=== PATIENT | female | born 1980 ===

== ENCOUNTER 2016-02-29 15:19 | Emergency (ER) | payer OTHER ==
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
--- NOTE | 2016-02-29 15:38 | ED ORDER SUMMARY ---
..... Patient: LEONIDAS KIM OrderSheet [facility] VisitID: [id number] [address] [place] [address] 35y, F Registration Date/Time: 02/29/2016 ORDER SHEET Weight: 68.0 kg (stated) Allergies: Tramadol GENERAL ORDERS: MEDICATION ORDERS: Hydrocodone-APAP PO 5/325 mg (NOW, HIGH ALERT MEDICATION) (15:37 02/29/2016 Yvonne P.A.-C) (Ack 15:39 DDean R.N.) (15:48 DDean R.N.) Keflex PO 500 mg (NOW) (15:37 02/29/2016 Yvonne P.A.-C) (Ack 15:39 DDean R.N.) (15:48 DDean R.N.) IV FLUIDS: ORDER SHEET NOTES: [Electronically signed by Yessica Nolan R.N. (16:50 02/29/2016)] [Electronically signed by Yessica Nolan R.N. (16:51 02/29/2016)] [Electronically signed by Quynh AndersenAWyatt-Sita (18:37 02/29/2016)] [Electronically locked/signed by Yessica Nolan R.N. (16:50 02/29/2016)]
--- NOTE | 2016-02-29 15:38 | ED ORDER SUMMARY ---
..... Patient: LEONIDAS KIM OrderSheet [facility] VisitID: [id number] [address] [place] [address] 35y, F Registration Date/Time: 02/29/2016 ORDER SHEET Weight: 68.0 kg (stated) Allergies: Tramadol GENERAL ORDERS: MEDICATION ORDERS: Hydrocodone-APAP PO 5/325 mg (NOW, HIGH ALERT MEDICATION) (15:37 02/29/2016 Yvonne P.A.-C) (Ack 15:39 DDean R.N.) (15:48 DDean R.N.) Keflex PO 500 mg (NOW) (15:37 02/29/2016 Yvonne P.A.-C) (Ack 15:39 DDean R.N.) (15:48 DDean R.N.) IV FLUIDS: ORDER SHEET NOTES: [Electronically signed by Yessica Nolan R.N. (16:50 02/29/2016)] [Electronically signed by Yessica Nolan R.N. (16:51 02/29/2016)] [Electronically signed by Quynh AndersenAWyatt-Sita (18:37 02/29/2016)] [Electronically locked/signed by Yessica Nolan R.N. (16:50 02/29/2016)]
--- NOTE | 2016-02-29 15:38 | ED NURSING NOTES ---
Clinical Report - Nurses [facility] [address] [place] [address] 02/29/2016 15:20 Patient: LEONIDAS KIM TRIAGE Triage time 1520. Acuity: LEVEL 4. Chief Complaint: Pt in with lump under left armpit. has had lump to armpit off and on for years, but very painful last 2 days --Never has had any cysts needing I&D. --15:38 Yessica Nolan R.N. 15:20 02/29/16. BP: 120/76. HR: 84. RR: 18. O2 saturation: 98%. Temp: 98.9 F. Pain level now: 8/10. --15:38 Yessica Nolan R.N. Weight: 68 kg stated. Height/Length: 62 inches Per Patient. BMI: 27.4. --15:36 Yessica Nolan R.N. Medications Cyclobenzaprine HCl Oral 10 mg, daily as needed. Lantus Subcutaneous 80 Units, at bedtime. MetFORMIN HCl Oral (Tablet 1000 mg) 1 tablet, 2x a day (500 mg at noon). Novalog sliding scale, before meals. Vitamins Oral 1 pill, daily. TraZODone HCl Oral 50 mg, at bedtime. --15:34 Yessica Nolan R.N. Allergies Tramadol.(nausea) (weakness) --15:34 Yessica Nolan R.N. History Arrived by private vehicle. Historian: patient. Unaccompanied. Primary physician ([facility]). PAST MEDICAL HX: Last normal menstrual period- 2 weeks. SOCIAL HX: Light tobacco smoker (cigarette)- less than 1/2 a pack per day. No alcohol use or drug use. --15:38 Yessica Nolan R.N. PROBLEMS: Lumbar Radiculopathy. Chronic Back Pain. Contact Dermatitis. Pyelonephritis. Vaginitis. Plantar Fasciitis. Bronchitis. Asthma. Vulvovaginitis. Cervical Strain. UTI - Urinary Tract Infection. Depression. Insomnia. Hypertension. Hypercholesterolemia. Diabetes Mellitus. --15:36 Yessica Nolan R.N. ADDITIONAL SURGERIES: Carpal Tunnel Surgery. . --15:36 Yessica Nolan R.N. Interventions ID band on patient. To treatment room. --15:38 Yessica Nolan R.N. PHYSICAL ASSESSMENT 15:20. Ambulatory to room. Patient gowned. GENERAL / NEURO / PSYCH: Alert. The patient does not appear to be in acute distress. Oriented X 4. RESPIRATORY: Respirations not labored. CVS: Capillary refill less than 2 seconds. SKIN: Skin is intact, warm and dry. Skin tenderness present. No area of increased warmth to the skin or drainage. --15:39 Yessica Nolan R.N. NURSING PROGRESS NOTES 15:20. Patient gowned. Head of bed elevated. Reassurance given. Patient identifiers checked. Call light placed in reach. Side rails up. Bed placed in lowest position. Patient ready for evaluation- chart flagged. --15:38 Yessica Nolan R.N. 15:43 02/29/2016 Hydrocodone-APAP (Hydrocodone-Acetaminophen) PO 5/325 mg Tablets 1 tab given. Allergies verified, confirmed 5 rights and sedative warning given to the patient. --15:48 Yessica Nolan R.N. 15:43 02/29/2016 Keflex (Cephalexin) PO Capsules 500 mg given. Allergies verified and confirmed 5 rights. --15:48 Yessica Nolan R.N. DISPOSITION / DISCHARGE 1545. Condition at departure: unchanged and stable. No learning barriers present. Discharge instructions provided and reviewed with the patient. Reviewed medication(s) (keflex, motin). Patient verbalized understanding. Written instructions provided in Surinamese. The patient was discharged home and accompanied by laborer concrete plant. She left the Emergency Department ambulatory and via private vehicle. Fence Laborer driving. --16:51 Yessica Nolan R.N. 15:45 02/29/16. BP: deferred. HR: deferred. RR: deferred. O2 saturation: deferred. Temp: deferred. Pain level now: 09/15. --16:51 Yessica Nolan R.N. Locked/Released at 02/29/2016 16:51 by Yessica Nolan R.N.
--- NOTE | 2016-02-29 15:38 | ED NURSING NOTES ---
Clinical Report - Nurses [facility] [address] [place] [address] 02/29/2016 15:20 Patient: LEONIDAS KIM TRIAGE Triage time 1520. Acuity: LEVEL 4. Chief Complaint: Pt in with lump under left armpit. has had lump to armpit off and on for years, but very painful last 2 days --Never has had any cysts needing I&D. --15:38 Yessica Nolan R.N. 15:20 02/29/16. BP: 120/76. HR: 84. RR: 18. O2 saturation: 98%. Temp: 98.9 F. Pain level now: 8/10. --15:38 Yessica Nolan R.N. Weight: 68 kg stated. Height/Length: 62 inches Per Patient. BMI: 27.4. --15:36 Yessica Nolan R.N. Medications Cyclobenzaprine HCl Oral 10 mg, daily as needed. Lantus Subcutaneous 80 Units, at bedtime. MetFORMIN HCl Oral (Tablet 1000 mg) 1 tablet, 2x a day (500 mg at noon). Novalog sliding scale, before meals. Vitamins Oral 1 pill, daily. TraZODone HCl Oral 50 mg, at bedtime. --15:34 Yessica Nolan R.N. Allergies Tramadol.(nausea) (weakness) --15:34 Yessica Nolan R.N. History Arrived by private vehicle. Historian: patient. Unaccompanied. Primary physician ([facility]). PAST MEDICAL HX: Last normal menstrual period- 2 weeks. SOCIAL HX: Light tobacco smoker (cigarette)- less than 1/2 a pack per day. No alcohol use or drug use. --15:38 Yessica Nolan R.N. PROBLEMS: Lumbar Radiculopathy. Chronic Back Pain. Contact Dermatitis. Pyelonephritis. Vaginitis. Plantar Fasciitis. Bronchitis. Asthma. Vulvovaginitis. Cervical Strain. UTI - Urinary Tract Infection. Depression. Insomnia. Hypertension. Hypercholesterolemia. Diabetes Mellitus. --15:36 Yessica Nolan R.N. ADDITIONAL SURGERIES: Carpal Tunnel Surgery. . --15:36 Yessica Nolan R.N. Interventions ID band on patient. To treatment room. --15:38 Yessica Noaln R.N. PHYSICAL ASSESSMENT 15:20. Ambulatory to room. Patient gowned. GENERAL / NEURO / PSYCH: Alert. The patient does not appear to be in acute distress. Oriented X 4. RESPIRATORY: Respirations not labored. CVS: Capillary refill less than 2 seconds. SKIN: Skin is intact, warm and dry. Skin tenderness present. No area of increased warmth to the skin or drainage. --15:39 Yessica Nolan R.N. NURSING PROGRESS NOTES 15:20. Patient gowned. Head of bed elevated. Reassurance given. Patient identifiers checked. Call light placed in reach. Side rails up. Bed placed in lowest position. Patient ready for evaluation- chart flagged. --15:38 Yessica Nolan R.N. 15:43 02/29/2016 Hydrocodone-APAP (Hydrocodone-Acetaminophen) PO 5/325 mg Tablets 1 tab given. Allergies verified, confirmed 5 rights and sedative warning given to the patient. --15:48 Yessica Nolan R.N. 15:43 02/29/2016 Keflex (Cephalexin) PO Capsules 500 mg given. Allergies verified and confirmed 5 rights. --15:48 Yessica Nolan R.N. DISPOSITION / DISCHARGE 1545. Condition at departure: unchanged and stable. No learning barriers present. Discharge instructions provided and reviewed with the patient. Reviewed medication(s) (keflex, motin). Patient verbalized understanding. Written instructions provided in Venezuelan. The patient was discharged home and accompanied by costume seamstress. She left the Emergency Department ambulatory and via private vehicle. Assistant Floor Covering Printer driving. --16:51 Yessica Nolan R.N. 15:45 02/29/16. BP: deferred. HR: deferred. RR: deferred. O2 saturation: deferred. Temp: deferred. Pain level now: 09/15. --16:51 Yessica Nolan R.N. Locked/Released at 02/29/2016 16:51 by Yessica Nolan R.N.
--- NOTE | 2016-02-29 18:37 | ED DISCHARGE INSTRUCTIONS ---
Patient: LEONIDAS KIM General Instructions [facility] VisitID: [id number] [place] [address] 35y, F Registration Date/Time: 02/29/2016 Type 2 diabetes. Hypertension. Acute left axillary lymphadenitis INSTRUCTIONS (warm packs follow up with bundle helper for annual SINTER PRESS OPERATOR exam Follow up with your own DR in 2-3 days for repeat exam). Warnings: Further evaluation is necessary. Prescription Medications: Keflex 500 mg: take 1 capsule orally every 8 hours for 10 days. No refill. Substitution is permissible. Ibuprofen 800 mg tablets: take 1 tablet orally every 8 hours for 5 days, as needed for pain. Dispense fifteen (15). No refill. Follow-up: Follow up with doctor in three days. Follow-up with: Miguelito Alvarado MD, Obstetrics/Gynecology, , [facility], [address] [place] [address] Follow up. Call for the next available appointment. ADDITIONAL INFORMATION Lymph Node Infection [Local, Antibiotic Treatment] You have a bacterial infection of the lymph node. The lymph nodes are part of the immune system and become swollen and tender when there is a nearby infection or inflammation. The lymph nodes are found under the jaw and along the side of the neck, in the armpits and in the groin. An infection or inflammation in the tissues nearby causes the lymph nodes to swell and become tender. When a bacterial infection occurs in the lymph node, it becomes very painful and the nearby skin gets red and warm. There may also be a fever. Antibiotics and hot compresses are used to treat this infection. The pain and redness will decrease over the next 7-10 days. Swelling may take several months to go away. Sometimes an ABSCESS (with pus) forms inside the lymph node. If this happens, antibiotics may not be enough to cure the infection. Minor Surgery may be needed to drain the pus. Home Care: Take all of the antibiotic medicine exactly as prescribed until it is gone. Be careful not to miss any doses, especially during the first few days. Make a hot compress by running hot water over a face cloth. Apply it to the sore area until it cools off. Repeat this for 20 minutes. Apply the hot compress three times a day for the first three days or until the pain and redness begin to improve. The heat will increase the blood flow to the area and speed the healing process. You may use acetaminophen (Tylenol) or ibuprofen (Motrin, Advil) to control pain and fever, unless another medicine was prescribed for this. Do not use ibuprofen in children under six months of age. [NOTE: If you have chronic liver or kidney disease or ever had a stomach ulcer or GI bleeding, talk with your doctor before using these medicines.] (Aspirin should never be used in anyone under 18 years of age who is ill with a fever. It may cause severe liver damage.) Follow Up with your doctor or this facility after completion of the antibiotics or as directed. Get Prompt Medical Attention if any of the following occur: Increasing redness, swelling or pain in the lymph node Pus or fluid drainage from the lymph node Difficulty breathing or swallowing Fever remains over 100.5F (38.0C) oral or 101.5F (38.3C) rectal for more than 2 days of treatment Cephalexin Monohydrate Oral tablet What is this medicine? CEPHALEXIN (sef a MAGDA in) is a cephalosporin antibiotic. It is used to treat certain kinds of bacterial infections It will not work for colds, flu, or other viral infections. How should I use this medicine? Take this medicine by mouth with a full glass of water. Follow the directions on the prescription label. This medicine can be taken with or without food. Take your medicine at regular intervals. Do not take your medicine more often than directed. Take all of your medicine as directed even if you think you are better. Do not skip doses or stop your medicine early. Talk to your retanned leather roller regarding the use of this medicine in children. While this drug may be prescribed for selected conditions, precautions do apply. What side effects may I notice from receiving this medicine? Side effects that you should report to your doctor or health healthcare social worker as soon as possible: allergic reactions like skin rash, itching or hives, swelling of the face, lips, or tongue breathing problems pain or trouble passing urine redness, blistering, peeling or loosening of the skin, including inside the mouth severe or watery diarrhea unusually weak or tired yellowing of the eyes, skin Side effects that usually do not require medical attention (report to your doctor or health healthcare social worker if they continue or are bothersome): gas or heartburn genital or anal irritation headache joint or muscle pain nausea, vomiting What may interact with this medicine? probenecid some other antibiotics What if I miss a dose? If you miss a dose, take it as soon as you can. If it is almost time for your next dose, take only that dose. Do not take double or extra doses. There should be at least 4 to 6 hours between doses. Where should I keep my medicine? Keep out of the reach of children. Store at room temperature between 59 and 86 degrees F (15 and 30 degrees C). Throw away any unused medicine after the expiration date. What should I tell my health care provider before I take this medicine? They need to know if you have any of these conditions: kidney disease stomach or intestine problems, especially colitis an unusual or allergic reaction to cephalexin, other cephalosporins, penicillins, other antibiotics, medicines, foods, dyes or preservatives or trying to get breast-feeding What should I watch for while using this medicine? Tell your doctor or health healthcare social worker if your symptoms do not begin to improve in a few days. Do not treat diarrhea with over the counter products. Contact your doctor if you have diarrhea that lasts more than 2 days or if it is severe and watery. If you have diabetes, you may get a false-positive result for sugar in your urine. Check with your doctor or health healthcare social worker. You have been given the following additional information: Cervical Adenitis, Antiobiotic Treatment Cephalexin Monohydrate Oral tablet (Electronically signed by Quynh Andersen P.A.-C 02/29/2016 18:37)
--- NOTE | 2016-02-29 18:37 | ED MED RECONCILIATION SUMMARY ---
Patient: LEONIDAS KIM Medication Reconciliation Report [facility] VisitID: [id number] [address] [place] [address] 35y, F Registration Date/Time: 02/29/2016 Weight: 68.0 kg Height/Length: 62 in. BMI: 27.4 ALLERGIES: Tramadol The patient's Home Medications are listed below: THE FOLLOWING MEDICATIONS NEED TO BE RECONCILED: Cyclobenzaprine HCl Oral 10 mg, daily Lantus Subcutaneous 80 Units, at bedtime MetFORMIN HCl Oral (1000 mg) 1 tablet, 2x a day, 500 mg at noon Novalog sliding scale, before meals Vitamins Oral 1 pill, daily TraZODone HCl Oral 50 mg, at bedtime The source(s) of the original Home Medication information: Not obtained. The following Medications were given to the patient in the Emergency Department: Hydrocodone-APAP [PO] PO 1 tab, administered: 02/29/2016 3:43:00 PM Keflex [PO] PO 500 mg, administered: 02/29/2016 3:43:00 PM The following Medications were prescribed to the patient: Keflex 500 mg: take 1 capsule orally every 8 hours for 10 days. No refill. Substitution is permissible. -- Quynh Andersen P.AWyatt-Sita Ibuprofen 800 mg tablets: take 1 tablet orally every 8 hours for 5 days, as needed for pain. Dispense fifteen (15). No refill. -- Quynh Andersen P.AWyatt-Sita
--- NOTE | 2016-02-29 18:37 | ED DISCHARGE INSTRUCTIONS ---
Patient: LEONIDAS KIM General Instructions [facility] VisitID: [id number] [place] [address] 35y, F Registration Date/Time: 02/29/2016 Type 2 diabetes. Hypertension. Acute left axillary lymphadenitis INSTRUCTIONS (warm packs follow up with experience specialist for annual MAGNETIZER exam Follow up with your own DR in 2-3 days for repeat exam). Warnings: Further evaluation is necessary. Prescription Medications: Keflex 500 mg: take 1 capsule orally every 8 hours for 10 days. No refill. Substitution is permissible. Ibuprofen 800 mg tablets: take 1 tablet orally every 8 hours for 5 days, as needed for pain. Dispense fifteen (15). No refill. Follow-up: Follow up with doctor in three days. Follow-up with: Miguelito Alvarado MD, Obstetrics/Gynecology, , [facility], [address] [place] [address] Follow up. Call for the next available appointment. ADDITIONAL INFORMATION Lymph Node Infection [Local, Antibiotic Treatment] You have a bacterial infection of the lymph node. The lymph nodes are part of the immune system and become swollen and tender when there is a nearby infection or inflammation. The lymph nodes are found under the jaw and along the side of the neck, in the armpits and in the groin. An infection or inflammation in the tissues nearby causes the lymph nodes to swell and become tender. When a bacterial infection occurs in the lymph node, it becomes very painful and the nearby skin gets red and warm. There may also be a fever. Antibiotics and hot compresses are used to treat this infection. The pain and redness will decrease over the next 7-10 days. Swelling may take several months to go away. Sometimes an ABSCESS (with pus) forms inside the lymph node. If this happens, antibiotics may not be enough to cure the infection. Minor Surgery may be needed to drain the pus. Home Care: Take all of the antibiotic medicine exactly as prescribed until it is gone. Be careful not to miss any doses, especially during the first few days. Make a hot compress by running hot water over a face cloth. Apply it to the sore area until it cools off. Repeat this for 20 minutes. Apply the hot compress three times a day for the first three days or until the pain and redness begin to improve. The heat will increase the blood flow to the area and speed the healing process. You may use acetaminophen (Tylenol) or ibuprofen (Motrin, Advil) to control pain and fever, unless another medicine was prescribed for this. Do not use ibuprofen in children under six months of age. [NOTE: If you have chronic liver or kidney disease or ever had a stomach ulcer or GI bleeding, talk with your doctor before using these medicines.] (Aspirin should never be used in anyone under 18 years of age who is ill with a fever. It may cause severe liver damage.) Follow Up with your doctor or this facility after completion of the antibiotics or as directed. Get Prompt Medical Attention if any of the following occur: Increasing redness, swelling or pain in the lymph node Pus or fluid drainage from the lymph node Difficulty breathing or swallowing Fever remains over 100.5F (38.0C) oral or 101.5F (38.3C) rectal for more than 2 days of treatment Cephalexin Monohydrate Oral tablet What is this medicine? CEPHALEXIN (sef a MAGDA in) is a cephalosporin antibiotic. It is used to treat certain kinds of bacterial infections It will not work for colds, flu, or other viral infections. How should I use this medicine? Take this medicine by mouth with a full glass of water. Follow the directions on the prescription label. This medicine can be taken with or without food. Take your medicine at regular intervals. Do not take your medicine more often than directed. Take all of your medicine as directed even if you think you are better. Do not skip doses or stop your medicine early. Talk to your property technician regarding the use of this medicine in children. While this drug may be prescribed for selected conditions, precautions do apply. What side effects may I notice from receiving this medicine? Side effects that you should report to your doctor or health childbirth and infant care teacher as soon as possible: allergic reactions like skin rash, itching or hives, swelling of the face, lips, or tongue breathing problems pain or trouble passing urine redness, blistering, peeling or loosening of the skin, including inside the mouth severe or watery diarrhea unusually weak or tired yellowing of the eyes, skin Side effects that usually do not require medical attention (report to your doctor or health childbirth and infant care teacher if they continue or are bothersome): gas or heartburn genital or anal irritation headache joint or muscle pain nausea, vomiting What may interact with this medicine? probenecid some other antibiotics What if I miss a dose? If you miss a dose, take it as soon as you can. If it is almost time for your next dose, take only that dose. Do not take double or extra doses. There should be at least 4 to 6 hours between doses. Where should I keep my medicine? Keep out of the reach of children. Store at room temperature between 59 and 86 degrees F (15 and 30 degrees C). Throw away any unused medicine after the expiration date. What should I tell my health care provider before I take this medicine? They need to know if you have any of these conditions: kidney disease stomach or intestine problems, especially colitis an unusual or allergic reaction to cephalexin, other cephalosporins, penicillins, other antibiotics, medicines, foods, dyes or preservatives or trying to get breast-feeding What should I watch for while using this medicine? Tell your doctor or health childbirth and infant care teacher if your symptoms do not begin to improve in a few days. Do not treat diarrhea with over the counter products. Contact your doctor if you have diarrhea that lasts more than 2 days or if it is severe and watery. If you have diabetes, you may get a false-positive result for sugar in your urine. Check with your doctor or health childbirth and infant care teacher. You have been given the following additional information: Cervical Adenitis, Antiobiotic Treatment Cephalexin Monohydrate Oral tablet (Electronically signed by Quynh Andersen P.A.-C 02/29/2016 18:37)
--- NOTE | 2016-02-29 18:37 | ED MAR SUMMARY ---
..... Medication Administration Record [facility] [address] [place] [address] Patient: LEONIDAS KIM Visit ID: [id number] 35y, F Weight: 68.0 kg Height/Length: 62 in BMI: 27.4 ALLERGIES: Tramadol Given 15:02/29/2016 Yessica Nolan RWyattN. Medication Administered: HYDROCODONE-APAP [PO] (HYDROCODONE-ACETAMINOPHEN), Dose: 1 tab 5/325 mg Tablets PO. Medication Ordered: Hydrocodone-APAP PO 5/325 mg (NOW, HIGH ALERT MEDICATION). Given 15:02/29/2016 Yessica Nolan, RWyattN. Medication Administered: KEFLEX [PO] (CEPHALEXIN), Dose: 500 mg Capsules PO. Medication Ordered: Keflex PO 500 mg (NOW).
--- NOTE | 2016-02-29 18:37 | ED MED RECONCILIATION SUMMARY ---
Patient: LEONIDAS KIM Medication Reconciliation Report [facility] VisitID: [id number] [address] [place] [address] 35y, F Registration Date/Time: 02/29/2016 Weight: 68.0 kg Height/Length: 62 in. BMI: 27.4 ALLERGIES: Tramadol The patient's Home Medications are listed below: THE FOLLOWING MEDICATIONS NEED TO BE RECONCILED: Cyclobenzaprine HCl Oral 10 mg, daily Lantus Subcutaneous 80 Units, at bedtime MetFORMIN HCl Oral (1000 mg) 1 tablet, 2x a day, 500 mg at noon Novalog sliding scale, before meals Vitamins Oral 1 pill, daily TraZODone HCl Oral 50 mg, at bedtime The source(s) of the original Home Medication information: Not obtained. The following Medications were given to the patient in the Emergency Department: Hydrocodone-APAP [PO] PO 1 tab, administered: 02/29/2016 3:43:00 PM Keflex [PO] PO 500 mg, administered: 02/29/2016 3:43:00 PM The following Medications were prescribed to the patient: Keflex 500 mg: take 1 capsule orally every 8 hours for 10 days. No refill. Substitution is permissible. -- Quynh Andersen P.AWyatt-Sita Ibuprofen 800 mg tablets: take 1 tablet orally every 8 hours for 5 days, as needed for pain. Dispense fifteen (15). No refill. -- Quynh Andersen P.AWyatt-Sita
--- NOTE | 2016-02-29 18:37 | ED MAR SUMMARY ---
..... Medication Administration Record [facility] [address] [place] [address] Patient: LEONIDAS KIM Visit ID: [id number] 35y, F Weight: 68.0 kg Height/Length: 62 in BMI: 27.4 ALLERGIES: Tramadol Given 15:02/29/2016 Yessica Nolan RWyattN. Medication Administered: HYDROCODONE-APAP [PO] (HYDROCODONE-ACETAMINOPHEN), Dose: 1 tab 5/325 mg Tablets PO. Medication Ordered: Hydrocodone-APAP PO 5/325 mg (NOW, HIGH ALERT MEDICATION). Given 15:02/29/2016 Yessica Nolan, RWyattN. Medication Administered: KEFLEX [PO] (CEPHALEXIN), Dose: 500 mg Capsules PO. Medication Ordered: Keflex PO 500 mg (NOW).
== END 2016-02-29 15:48 | disposition home or self-care (01) ==
LOC: ED SRH 15:19
DX: L04.2 Acute lymphadenitis of upper limb (principal); E11.9 Type 2 diabetes mellitus without complications; I10 Essential (primary) hypertension; Z79.4 Long term (current) use of insulin; Z88.5 Allergy status to narcotic agent; F17.200 Nicotine dependence, unspecified, uncomplicated

== ENCOUNTER 2016-03-31 13:58 | Outpatient (CLI) | payer OTHER ==
--- NOTE | 2016-03-31 15:50 | DIAGNOSTIC IMAGING REPORT ---
PROCEDURE: MG BILATERAL DIAGNOSTIC W/CAD INDICATION: LEFT BREAST PAIN; LUMP TECHNIQUE: CC and MLO digital views of each breast with true-lateral digital view of the left breast. In addition, spot compression CC and MLO views were obtained of the left upper outer quadrant. Finally, high-resolution left breast ultrasound was performed (18 mHz). COMPARISON: Baseline FINDINGS: MAMMOGRAM: Computer-aided detection applied. Moderately dense pattern with scattered microcalcifications. No evidence of parenchymal abnormality corresponding to the symptomatic area in the left upper outer quadrant. BREAST ULTRASOUND: Normal breast parenchyma. No evidence of a mass pathological acoustic shadowing. IMPRESSION: 1. Negative bilateral mammogram and left breast ultrasound. RESULT CODE: 1- Negative. A. A negative report should not delay biopsy if a dominant or clinically suspicious mass is present. 10-15% of cancers are not identified by x-ray. B. A negative report may reinforce clinical impression. C. Adenosis and dense breasts may obscure an underlying neoplasm. D. False positive reports average 6-10%. E.. A yearly screening mammogram is recommended. A reminder letter will be scheduled.
== END 2016-03-31 23:00 | disposition home or self-care (01) ==
LOC: MAM SRH 13:58
DX: N63 Unspecified lump in breast (principal)

== ENCOUNTER 2016-04-06 21:10 | Emergency (ER) | payer OTHER ==
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
--- NOTE | 2016-04-06 22:42 | ED ORDER SUMMARY ---
..... Patient: LEONIDAS KIM OrderSheet [facility] VisitID: [id number] [place] [address] 35y, F Registration Date/Time: 04/06/2016 ORDER SHEET Weight: 69.8 kg (stated) Allergies: Tramadol GENERAL ORDERS: CBC w Diff Urgent (21:04/06/2016 Sav PEÑA) (Ack 21:26 Michelle AREVALO TechPeyton) (22:10 HSoule) CMP Urgent (:04/06/2016 Sav PEÑA) (Ack 21:26 Michelle AREVALO Tech1) (22:10 HSoule) UA-Culture if indicated Urgent (:04/06/2016 Sav PEÑA) (Ack 21:26 Michelle Delacruz) (22:10 HSoule) Amylase Urgent (:04/06/2016 Sav PEÑA) (Ack 21:26 Michelle Delacruz) (22:10 HSoule) Lipase Urgent (:04/06/2016 Sav PEÑA) (Ack 21:26 Michelle AREVALO TechPeyton) (22:10 HSoule) Urine Urgent (:04/06/2016 Sav PEÑA) (Ack 21:26 Michelle AREVALO Tech1) (22:10 HSoule) Lumbar Spine 2 or 3V Urgent (21:56 04/06/2016 Sav PEÑA) (Ack 21:57 Michelle ER Tech1) (22:38 MCampbell) MEDICATION ORDERS: IV FLUIDS: IV NS : initial bolus 500 mL (1000 mL/hr), then 125 mL/hr for 4h (NOW); Urgent (:04/06/2016 Sav PEÑA) (Ack 21:38 HSoule) (21:53 HSoule) ORDER SHEET NOTES: [Electronically signed by Brianda Branch (00:02 04/07/2016)] [Electronically signed by Man Trinidad MD (02:15 04/07/2016)] [Electronically locked/signed by Brianda Branch (00:02 04/07/2016)]
--- NOTE | 2016-04-06 22:42 | ED ORDER SUMMARY ---
..... Patient: LEONIDAS KIM OrderSheet [facility] VisitID: [id number] [place] [address] 35y, F Registration Date/Time: 04/06/2016 ORDER SHEET Weight: 69.8 kg (stated) Allergies: Tramadol GENERAL ORDERS: CBC w Diff Urgent (21:04/06/2016 Sav PEÑA) (Ack 21:26 Michelle AREVALO TechPeyton) (22:10 HSoule) CMP Urgent (:04/06/2016 Sav PEÑA) (Ack 21:26 Michelle AREVALO Tech1) (22:10 HSoule) UA-Culture if indicated Urgent (:04/06/2016 Sav PEÑA) (Ack 21:26 Michelle Delacruz) (22:10 HSoule) Amylase Urgent (:04/06/2016 Sav PEÑA) (Ack 21:26 Michelle Delacruz) (22:10 HSoule) Lipase Urgent (:04/06/2016 Sav PEÑA) (Ack 21:26 Michelle AREVALO TechPeyton) (22:10 HSoule) Urine Urgent (:04/06/2016 Sav PEÑA) (Ack 21:26 Michelle AREVALO Tech1) (22:10 HSoule) Lumbar Spine 2 or 3V Urgent (21:56 04/06/2016 Sav PEÑA) (Ack 21:57 Michelle ER Tech1) (22:38 MCampbell) MEDICATION ORDERS: IV FLUIDS: IV NS : initial bolus 500 mL (1000 mL/hr), then 125 mL/hr for 4h (NOW); Urgent (:04/06/2016 Sav PEÑA) (Ack 21:38 HSoule) (21:53 HSoule) ORDER SHEET NOTES: [Electronically signed by Brianda Branch (00:02 04/07/2016)] [Electronically signed by Man Trinidad MD (02:15 04/07/2016)] [Electronically locked/signed by Brianda Branch (00:02 04/07/2016)]
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
--- NOTE | 2016-04-06 22:45 | DIAGNOSTIC IMAGING REPORT ---
PROCEDURE: XR LUMBAR SPINE 2 OR 3 VIEWS INDICATION: LOWER BACK PAIN TECHNIQUE: Three views of the lumbar spine COMPARISON: 01/05/2016 FINDINGS: Five lumbar-type vertebral bodies are present. Normal vertebral body height without fracture. Normal AP alignment with loss of lordosis likely reflective of muscle spasm. Disc spacing is normal. Trace degenerative endplate spurring at L5. The visible osseous pelvis and bowel gas pattern are normal. IMPRESSION: 1. Intact lumbar spine. 2. Chronic loss of lordosis may be postural or chronic muscle spasm.
--- NOTE | 2016-04-07 02:16 | ED MAR SUMMARY ---
..... Medication Administration Record [facility] [address] [place] [address] Patient: LEONIDAS KIM Visit ID: [id number] 35y, F Weight: 69.8 kg Height/Length: 62 in BMI: 28.2 ALLERGIES: Tramadol Start 21:53 04/06/2016 Brianda Branch,, Stop 22:46 04/06/2016 Brianda Branch, Medication Administered: IV NS (SALINE), Dose: IV Fluids over 30 minute(s), Rate: 500 mL/hr, Dispensed: 1000 mL bag, Site: #1 left AC. Medication Ordered: IV NS : initial bolus 500 mL (1000 mL/hr), then 125 mL/hr for 4h (NOW); Urgent.
--- NOTE | 2016-04-07 02:16 | ED MAR SUMMARY ---
..... Medication Administration Record [facility] [address] [place] [address] Patient: LEONIDAS KIM Visit ID: [id number] 35y, F Weight: 69.8 kg Height/Length: 62 in BMI: 28.2 ALLERGIES: Tramadol Start 21:53 04/06/2016 Brianda Branch,, Stop 22:46 04/06/2016 Brianda Branch, Medication Administered: IV NS (SALINE), Dose: IV Fluids over 30 minute(s), Rate: 500 mL/hr, Dispensed: 1000 mL bag, Site: #1 left AC. Medication Ordered: IV NS : initial bolus 500 mL (1000 mL/hr), then 125 mL/hr for 4h (NOW); Urgent.
--- NOTE | 2016-04-07 02:16 | ED MED RECONCILIATION SUMMARY ---
Patient: LEONIDAS KIM Medication Reconciliation Report [facility] VisitID: [id number] [address] [place] [address] 35y, F Registration Date/Time: 04/06/2016 Weight: 69.8 kg Height/Length: 62 in. BMI: 28.2 ALLERGIES: Tramadol The patient's Home Medications are listed below: THE FOLLOWING MEDICATIONS NEED TO BE RECONCILED: Cyclobenzaprine HCl Oral 10 mg, daily Lantus Subcutaneous 80 Units, at bedtime MetFORMIN HCl Oral (1000 mg) 1 tablet, 2x a day, 500 mg at noon Novalog sliding scale, before meals TraZODone HCl Oral 50 mg, at bedtime The source(s) of the original Home Medication information: patient The following Medications were given to the patient in the Emergency Department: IV NS IV Fluids bolus 0, then 500 mL/hr, administered: 04/06/2016 9:53:00 PM The following Medications were prescribed to the patient: Ibuprofen 600mg tablets: take 1 tablet orally every 8 hours as needed for pain. Dispense thirty (30). No refills. -- Man Trinidad MD Flexeril 10 mg: take 1 orally every 8 hours as needed for muscle spasm or pain. Dispense fifteen (15). No refills. Substitution is permissible. -- Man Trinidad MD
--- NOTE | 2016-04-07 02:16 | ED MED RECONCILIATION SUMMARY ---
Patient: LEONIDAS KIM Medication Reconciliation Report Located [facility] VisitID: [id number] [address] [place] [address] 35y, F Registration Date/Time: 04/06/2016 Weight: 69.8 kg Height/Length: 62 in. BMI: 28.2 ALLERGIES: Tramadol The patient's Home Medications are listed below: THE FOLLOWING MEDICATIONS NEED TO BE RECONCILED: Cyclobenzaprine HCl Oral 10 mg, daily Lantus Subcutaneous 80 Units, at bedtime MetFORMIN HCl Oral (1000 mg) 1 tablet, 2x a day, 500 mg at noon Novalog sliding scale, before meals TraZODone HCl Oral 50 mg, at bedtime The source(s) of the original Home Medication information: patient The following Medications were given to the patient in the Emergency Department: IV NS IV Fluids bolus 0, then 500 mL/hr, administered: 04/06/2016 9:53:00 PM The following Medications were prescribed to the patient: Ibuprofen 600mg tablets: take 1 tablet orally every 8 hours as needed for pain. Dispense thirty (30). No refills. -- Man Trinidad MD Flexeril 10 mg: take 1 orally every 8 hours as needed for muscle spasm or pain. Dispense fifteen (15). No refills. Substitution is permissible. -- Man Trinidad MD
--- NOTE | 2016-04-07 02:16 | ED DISCHARGE INSTRUCTIONS ---
Patient: LEONIDAS KIM General [facility] VisitID: [id number] [address] [place] [address] 35y, F Registration Date/Time: 04/06/2016 Dysuria Acute left sided sciatica with low back pain. INSTRUCTIONS Apply ice for 20 minutes four times a day until better. Don't apply ice directly to skin and don't use while asleep. No driving or operating machinery while taking medication. No lifting greater than 5 lbs or no bending or stooping. (if your symptoms persist, talk with your doctor about whether you would benefit from an MRI as discussed.). Warnings: GENERAL WARNINGS: Return or contact your physician immediately if your condition worsens or changes unexpectedly, if not improving as expected, or if other problems arise. Prescription Medications: Ibuprofen 600mg tablets: take 1 tablet orally every 8 hours as needed for pain. Dispense thirty (30). No refills. Flexeril 10 mg: take 1 orally every 8 hours as needed for muscle spasm or pain. Dispense fifteen (15). No refills. Substitution is permissible. Understanding of the discharge instructions verbalized by patient. Follow-up with: [facility], , , [address], , [place], [address] Follow up tomorrow. Call for an appointment. ADDITIONAL INFORMATION Sciatica Sciatica ("Lumbar Radiculopathy") causes a pain that spreads from the lower back down into the buttock, hip and leg. Sometimes leg pain can occur without any back pain. Sciatica is due to irritation or pressure on a spinal nerve as it comes out of the spinal canal. This is most often due to a bulge or rupture of a nearby spinal disk (the cartilage cushion between each spinal bone), which presses on a nearby nerve. Other causes include spinal stenosis (narrowing of the spinal canal) and spasm of the pyriform muscle (a muscle in the buttocks that the sciatic nerve passes through). Sciatica may begin after a sudden twisting/bending force (such as in a car accident), or sometimes after a simple awkward movement. In either case, muscle spasm is commonly present and contributes to the pain. The diagnosis of sciatica is made from the symptoms and physical exam. Unless you had a physical injury (such as a car accident or fall), X-rays are usually not ordered for the initial evaluation of sciatica because the nerves and disks cannot be seen on an x-ray. If signs of a compressed nerve are present (for example, loss of tendon reflex or strength in the leg), an MRI (magnetic resonance imaging) scan will need to be scheduled as an outpatient. Most sciatica (80-90%) gets better with medicine, exercise, physical therapy. If symptoms continue after at least three months of medical treatment, surgery may be considered. Home Care: You may need to stay in bed the first few days. But, as soon as possible, begin sitting or walking to avoid problems with prolonged bed rest. When in bed, try to find a position of comfort. A firm mattress is best. Try lying flat on your back with pillows under your knees. You can also try lying on your side with your knees bent up towards your chest and a pillow between your knees. Avoid prolonged sitting. This puts more stress on the lower back than standing or walking. Some persons find relief with heat (hot shower, hot bath or heating pad) and massage, while others prefer cold packs (crushed or cubed ice in a plastic bag, wrapped in a towel). Try both and use the method that feels best for 20 minutes several times a day. You may use acetaminophen (Tylenol) or ibuprofen (Motrin, Advil) to control pain, unless another pain medicine was prescribed. [ NOTE: If you have chronic liver or kidney disease or ever had a stomach ulcer or GI bleeding, talk with your doctor before using these medicines.] Be aware of safe lifting methods and do not lift anything over 15 pounds until all the pain is gone. Follow Up with your doctor or this facility if your symptoms do not start to improve after one week. Physical therapy or further testing may be needed. [NOTE: If X-rays were taken, they will be reviewed by a radiologist. You will be notified of any new findings that may affect your care.] Get Prompt Medical Attention if any of the following occur: Pain becomes worse, not controlled by the prescribed medicine Weakness or numbness in one or both legs Numbness in the groin, genital area Loss of bowel or bladder control Dysuria [Adult, Uncertain Cause] The urethra is the channel that allows urine to pass out of the body. In a woman, the urethra is the opening above the vagina. In men, the urethra is the opening on the tip of the penis. Dysuria is the feeling of pain or burning in the urethra when passing urine. Dysuria can be caused by anything that irritates or inflames the urethra. This can be caused by an infection or chemical irritation. The cause for your dysuria is not certain. The most common cause of dysuria in adults is a bladder infection. This is diagnosed with a urine test. It requires treatment with an antibiotic. Soaps, lotions, colognes, feminine hygiene products, contraceptive jellies, creams and foams can cause chemical irritation and dysuria. It will go away in 1-3 days after last exposure. Sexually Transmitted Disease (STD) from Chlamydia or Gonorrhea can cause dysuria. If your doctor suspects this, a culture specimen may be taken. It will take about three days to get the results. Antibiotic treatment may be started before the culture test returns. In post-menopausal women, dysuria can be a result of dryness in the lining of the urethra. This can be treated with hormones. Dysuria becomes "chronic" when it lasts for weeks or months. A referral to a specialist (urologist) may be needed to diagnose and treat chronic dysuria. Home Care: Avoid any chemical agents that you suspect may be causing your symptoms. If you were given a prescription medicine, take as directed. If a culture was taken, avoid sexual activity until you have been told that it is negative (no infection). Then, follow your doctor's advice to treat your condition. If a culture was done and it is positive: Both you and your sexual partner need to be treated, even if your partner has no symptoms. Contact your doctor or go to an urgent care clinic or the Public Health Department to be examined and treated. Avoid sexual activity until both you and your partner have completed all antibiotic medicine and told that you are no longer contagious. Learn about safe sex practices and use these in the future. The safest sex is with a partner who has tested negative and only has sex with you. Condoms offer protection from spreading some sexually transmitted diseases including Gonorrhea, Chlamydia and HIV, but are not a guarantee. Follow Up with your doctor as advised by our staff. If a culture was taken call in three days for the result, or as directed. If diagnosed with an STD, follow up with your doctor or the Public Health Department for complete STD screening, including HIV testing. For more information, contact the National STD Hotline: . Get Prompt Medical Attention if any of the following occur: No improvement after three days of treatment Fever of 100.4F (38C) or higher, or as directed by your healthcare provider Increasing back or abdominal pain Inability to urinate due to pain A new discharge from the urethra, vagina or penis Painful sores on the penis Rash or joint pain Enlarged painful lymph nodes (lumps) in the groin Testicle pain or swelling of the scrotum Ibuprofen Oral tablet What is this medicine? IBUPROFEN (eye BYOO proe fen) is a non-steroidal anti-inflammatory drug (NSAID). It is used for dental pain, fever, headaches or migraines, osteoarthritis, rheumatoid arthritis, or painful monthly periods. It can also relieve minor aches and pains caused by a cold, flu, or sore throat. How should I use this medicine? Take this medicine by mouth with a glass of water. Follow the directions on the prescription label. Take this medicine with food if your stomach gets upset. Try to not lie down for at least 10 minutes after you take the medicine. Take your medicine at regular intervals. Do not take your medicine more often than directed. A special MedGuide will be given to you by the pharmacist with each prescription and refill. Be sure to read this information carefully each time. Talk to your resident athletic trainer regarding the use of this medicine in children. Special care may be needed. What side effects may I notice from receiving this medicine? Side effects that you should report to your doctor or health hemodialysis patient care specialist as soon as possible: allergic reactions like skin rash, itching or hives, swelling of the face, lips, or tongue black or bloody stools, blood in the urine or in vomit breathing problems changes in vision chest pain general ill feeling or flu-like symptoms nausea or vomiting redness, blistering, peeling or loosening of the skin, including inside the mouth slurred speech or weakness on one side of the body stomach pain unexplained weight gain or swelling unusually weak or tired yellowing of eyes or skin Side effects that usually do not require medical attention (report to your doctor or health hemodialysis patient care specialist if they continue or are bothersome): constipation or diarrhea dizziness gas or heartburn stomach upset What may interact with this medicine? Do not take this medicine with any of the following medications: cidofovir ketorolac methotrexate pemetrexed This medicine may also interact with the following medications: alcohol aspirin diuretics lithium other drugs for inflammation like prednisone warfarin What if I miss a dose? If you miss a dose, take it as soon as you can. If it is almost time for your next dose, take only that dose. Do not take double or extra doses. Where should I keep my medicine? Keep out of the reach of children. Store at room temperature between 15 and 30 degrees C (59 and 86 degrees F). Keep container tightly closed. Throw away any unused medicine after the expiration date. What should I tell my health care provider before I take this medicine? They need to know if you have any of these conditions: asthma cigarette smoker drink more than 3 alcohol containing drinks a day heart disease or circulation problems such as heart failure or leg edema (fluid retention) high blood pressure kidney disease liver disease stomach bleeding or ulcers an unusual or allergic reaction to ibuprofen, aspirin, other NSAIDS, other medicines, foods, dyes, or preservatives or trying to get breast-feeding What should I watch for while using this medicine? Tell your doctor or healthcare professional if your symptoms do not start to get better or if they get worse. This medicine does not prevent heart attack or stroke. In fact, this medicine may increase the chance of a heart attack or stroke. The chance may increase with longer use of this medicine and in people who have heart disease. If you take aspirin to prevent heart attack or stroke, talk with your doctor or health hemodialysis patient care specialist. Do not take other medicines that contain aspirin, ibuprofen, or naproxen with this medicine. Side effects such as stomach upset, nausea, or ulcers may be more likely to occur. Many medicines available without a prescription should not be taken with this medicine. This medicine can cause ulcers and bleeding in the stomach and intestines at any time during treatment. Ulcers and bleeding can happen without warning symptoms and can cause . To reduce your risk, do not smoke cigarettes or drink alcohol while you are taking this medicine. You may get drowsy or dizzy. Do not drive, use machinery, or do anything that needs mental alertness until you know how this medicine affects you. Do not stand or sit up quickly, especially if you are an older patient. This reduces the risk of dizzy or fainting spells. This medicine can cause you to bleed more easily. Try to avoid damage to your teeth and gums when you brush or floss your teeth. Cyclobenzaprine Hydrochloride Oral tablet What is this medicine? CYCLOBENZAPRINE (glo mcknight) is a muscle relaxer. It is used to treat muscle pain, spasms, and stiffness. How should I use this medicine? Take this medicine by mouth with a glass of water. Follow the directions on the prescription label. If this medicine upsets your stomach, take it with food or milk. Take your medicine at regular intervals. Do not take it more often than directed. Talk to your resident athletic trainer regarding the use of this medicine in children. Special care may be needed. What side effects may I notice from receiving this medicine? Side effects that you should report to your doctor or health hemodialysis patient care specialist as soon as possible: allergic reactions like skin rash, itching or hives, swelling of the face, lips, or tongue chest pain fast heartbeat hallucinations seizures vomiting Side effects that usually do not require medical attention (report to your doctor or health hemodialysis patient care specialist if they continue or are bothersome): headache What may interact with this medicine? Do not take this medicine with any of the following medications: cisapride droperidol flecainide grepafloxacin halofantrine levomethadyl MAOIs like Carbex, Eldepryl, Marplan, Nardil, and Parnate nilotinib pimozide probucol sertindole This medicine may also interact with the following medications: abarelix alcohol contrast dyes dolasetron guanethidine medicines for cancer medicines for depression, anxiety, or psychotic disturbances medicines to treat an irregular heartbeat medicines used for sleep or numbness during surgery or procedure methadone octreotide ondansetron palonosetron phenothiazines like chlorpromazine, mesoridazine, prochlorperazine, thioridazine some medicines for infection like alfuzosin, chloroquine, clarithromycin, levofloxacin, mefloquine, pentamidine, troleandomycin tramadol vardenafil What if I miss a dose? If you miss a dose, take it as soon as you can. If it is almost time for your next dose, take only that dose. Do not take double or extra doses. Where should I keep my medicine? Keep out of the reach of children. Store at room temperature between 15 and 30 degrees C (59 and 86 degrees F). Keep container tightly closed. Throw away any unused medicine after the expiration date. What should I tell my health care provider before I take this medicine? They need to know if you have any of these conditions: heart disease, irregular heartbeat, or previous heart attack liver disease thyroid problem an unusual or allergic reaction to cyclobenzaprine, tricyclic antidepressants, lactose, other medicines, foods, dyes, or preservatives or trying to get breast-feeding What should I watch for while using this medicine? Check with your doctor or health hemodialysis patient care specialist if your condition does not improve within 1 to 3 weeks. You may get drowsy or dizzy when you first start taking the medicine or change doses. Do not drive, use machinery, or do anything that may be dangerous until you know how the medicine affects you. Stand or sit up slowly. Your mouth may get dry. Drinking water, chewing sugarless gum, or sucking on hard candy may help. You have been given the following additional information: Back Pain W/ Sciatica Dysuria, Uncertain Cause (Adult) Ibuprofen Oral tablet Cyclobenzaprine Hydrochloride Oral tablet No driving or operating machinery while taking medication. No lifting greater than 5 lbs or no bending or stooping. (Electronically signed by Man Trinidad MD 04/07/2016 2:15)
== END 2016-04-06 23:00 | disposition home or self-care (01) ==
LOC: ED SRH 21:10
DX: M54.42 Lumbago with sciatica, left side (principal); R30.0 Dysuria; E11.9 Type 2 diabetes mellitus without complications; I10 Essential (primary) hypertension; F17.210 Nicotine dependence, cigarettes, uncomplicated; Z79.84 Long term (current) use of oral hypoglycemic drugs; Z79.4 Long term (current) use of insulin; Z88.5 Allergy status to narcotic agent
CPT/HCPCS: 90004; 90100; 92235; 92530; 93070; 95059

== ENCOUNTER 2016-05-01 08:54 | Emergency (ER) | payer OTHER ==
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
--- NOTE | 2016-05-01 11:08 | ED ORDER SUMMARY ---
..... Patient: LEONIDAS KIM OrderSheet [facility] VisitID: [id number] [address] [place] [address] 35y, F Registration Date/Time: 05/01/2016 ORDER SHEET Weight: 69.8 kg (stated) Allergies: Tramadol GENERAL ORDERS: CBC w Diff Urgent (09:05/01/2016 Sav PEÑA) (Ack 9:26 Kg) (9:41 MWinterer R.N.) CMP Urgent (:05/01/2016 Sav PEÑA) (Ack 9:26 Kg) (9:41 MWinterer R.N.) UA-Culture if indicated Urgent (:05/01/2016 Sav PEÑA) (Ack 9:26 Kg) (9:30 KWilliams R.N.) Amylase Urgent (:05/01/2016 Sav PEÑA) (Ack 9:26 Kg) (9:41 MWinterer R.N.) Lipase Urgent (:05/01/2016 Sav PEÑA) (Ack 9:26 Kg) (9:41 MWinterer R.N.) Urine Urgent (:05/01/2016 Sav PEÑA) (Ack 9:26 Kg) (9:30 KWilliams R.N.) MEDICATION ORDERS: IV FLUIDS: IV NS : initial bolus 1000 mL (1000 mL/hr), then 150 mL/hr for 4h (NOW); Urgent (09:05/01/2016 Sav PEÑA) (Ack 9:28 MWinterer R.N.) (9:42 MWinterer R.N.) Zofran IV 4 mg (NOW) (09:05/01/2016 Sav PEÑA) (Ack 9:28 MWinterer R.N.) (9:42 MWinterer R.N.) Toradol IV 30 mg (NOW) (10:21 05/01/2016 Sav PEÑA) (Ack 10:23 MWinterer R.N.) (10:26 MWinterer R.N.) ORDER SHEET NOTES: [Electronically signed by Gini Hernandez R.N. (11:35 05/01/2016)] [Electronically signed by Man Trinidad MD (12:48 05/01/2016)] [Electronically locked/signed by Gini Hernandez R.N. (11:35 05/01/2016)]
--- NOTE | 2016-05-01 11:08 | ED ORDER SUMMARY ---
..... Patient: LEONIDAS KIM OrderSheet [facility] VisitID: [id number] [address] [place] [address] 35y, F Registration Date/Time: 05/01/2016 ORDER SHEET Weight: 69.8 kg (stated) Allergies: Tramadol GENERAL ORDERS: CBC w Diff Urgent (09:05/01/2016 Sav PEÑA) (Ack 9:26 Kg) (9:41 MWinterer R.N.) CMP Urgent (:05/01/2016 Sav PEÑA) (Ack 9:26 Kg) (9:41 MWinterer R.N.) UA-Culture if indicated Urgent (:05/01/2016 Sav PEÑA) (Ack 9:26 Kg) (9:30 KWilliams R.N.) Amylase Urgent (:05/01/2016 Sav PEÑA) (Ack 9:26 Kg) (9:41 MWinterer R.N.) Lipase Urgent (:05/01/2016 Sav PEÑA) (Ack 9:26 Kg) (9:41 MWinterer R.N.) Urine Urgent (:05/01/2016 Sav PEÑA) (Ack 9:26 Kg) (9:30 KWilliams R.N.) MEDICATION ORDERS: IV FLUIDS: IV NS : initial bolus 1000 mL (1000 mL/hr), then 150 mL/hr for 4h (NOW); Urgent (09:05/01/2016 Sav PEÑA) (Ack 9:28 MWinterer R.N.) (9:42 MWinterer R.N.) Zofran IV 4 mg (NOW) (09:05/01/2016 Sav PEÑA) (Ack 9:28 MWinterer R.N.) (9:42 MWinterer R.N.) Toradol IV 30 mg (NOW) (10:21 05/01/2016 aSv PEÑA) (Ack 10:23 MWinterer R.N.) (10:26 MWinterer R.N.) ORDER SHEET NOTES: [Electronically signed by Gini Hernandez R.N. (11:35 05/01/2016)] [Electronically signed by Man Trinidad MD (12:48 05/01/2016)] [Electronically locked/signed by Gini Hernandez R.N. (11:35 05/01/2016)]
--- NOTE | 2016-05-01 11:08 | ED NURSING NOTES ---
Clinical Report - Nurses [facility] [address] [place] [address] 05/01/2016 8:55 Patient: LEONIDAS KIM TRIAGE Acuity: LEVEL 3. Chief Complaint: ABDOMINAL PAIN, NAUSEA and DIARRHEA and (headache). Alert. No acute distress. --09:21 Gini Hernandez R.N. 09:13 05/01/16. BP: 133/91. HR: 88. RR: 16. O2 saturation: 99% on room air. Temp: 98.1 F (oral). Pain level now: 11/15. --09: Gini Hernandez R.N. Weight: 69.8 kg stated. Height/Length: 61 inches Per Patient. BMI: 29.1. --09:20 Gini Hernandez R.N. Medications Cyclobenzaprine HCl Oral 10 mg, daily as needed. Lantus Subcutaneous 80 Units, at bedtime. MetFORMIN HCl Oral (Tablet 1000 mg) 1 tablet, 2x a day (500 mg at noon). Novalog sliding scale, before meals. TraZODone HCl Oral 50 mg, at bedtime. --09:18 Gini Hernandez R.N. Medication/allergy information source: the patient. --09: Gini Hernandez R.N. Allergies Tramadol.(nausea) (weakness) --:18 Gini Hernandez R.N. History Arrived by private vehicle. Historian: patient. Unaccompanied. Primary physician ([facility]). This started last night. 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 PAST MEDICAL HX: Last normal menstrual period- today. SOCIAL HX: Current some days light tobacco smoker- less than 1/2 a pack per day. Occasional alcohol use. No drug use. FALL RISK ASSESSMENT: Fall risk assessment completed. No fall risk identified. NUTRITIONAL RISK ASSESSMENT: The nutritional risk assessment revealed no deficiencies. FUNCTIONAL ASSESSMENT: Functional assessment: no impairments noted. LEARNING NEEDS ASSESSMENT: The learning needs assessment revealed no barriers. SKIN INTEGRITY ASSESSMENT: Skin integrity risk assessment completed. No skin integrity risk identified. --09:21 Gini Hernandez R.N. PROBLEMS: Dysuria. Sciatica. Lymphadenitis. Back Pain. Lumbar Radiculopathy. Chronic Back Pain. Contact Dermatitis. Pyelonephritis. Vaginitis. Plantar Fasciitis. Bronchitis. Asthma. Discomfort of . Vulvovaginitis. . Abdominal Pain. Depression. Hypercholesterolemia. Hypertension. Diabetes Mellitus. --09:18 Gini Hernandez R.N. ADDITIONAL SURGERIES: Carpal Tunnel Surgery. . --09:19 Gini Hernandez R.N. Assessment GENERAL / NEURO / PSYCH: Alert. Oriented X 4. Appears in no acute distress. [place] Coma Scale: 15- eyes open spontaneously (4); best verbal response- oriented x 4 (5); best motor response- obeys commands (6). Patient appears calm and cooperative. RESPIRATORY: Respirations not labored. CVS: Capillary refill less than 2 seconds. GI / : Abdomen soft. SKIN: Mucous membranes are pink. Skin is warm and dry. --09: Gini Hernandez R.N. Interventions ID band on patient. To treatment room. Ambulatory. --09: Gini Hernandez R.N. PHYSICAL ASSESSMENT 09:05/01/16. Ambulatory to room. Patient gowned. GENERAL / NEURO / PSYCH: Alert. Oriented X 4. Appears in no acute distress. HEENT: Mucous membranes are pink. RESPIRATORY: Respirations not labored. CVS: Capillary refill less than 2 seconds. GI / : Abdomen soft and nontender. SKIN: Skin is warm and dry. --:25 Gini Hernandez R.N. NURSING PROGRESS NOTES 09:05/01/16. Patient gowned. Two patient identifiers checked. Call light placed in reach. Side rails up x 1. Bed placed in lowest position. Brakes of bed on. Patient ready for evaluation- ED physician notified. --: Gini Hernandez R.N. 09:22 05/01/16. Point of care testing: performed by nurse. Glucose: 198. Result shown to the ED physician. --: Gini Hernandez R.N. 09:05/01/16. Patient ID band checked for patient name and birthdate: patient confirmed. Instructions provided to collect clean catch urine and patient verbalized understanding. Clean catch urine collected with return of red-colored urine, blood clots noted; sample sent to lab for urinalysis and culture. Specimen labeled in the presence of the patient (pt states she is on menses). --09:23 Saundra Walter R.N. 09:36 05/01/2016 Site #1 started via IV in the left antecubital space with an 20g angiocath, with aseptic technique and good blood return; one attempt. Blood drawn: rainbow set. Labeled in the presence of the patient and sent to the lab. --09:41 Gini Hernandez R.N. 09:42 05/01/2016 Started bag #1 1000 mL IV Fluids IV NS (Saline); at 999 mL/hr over 1 hour(s) via site #1 via IV pump. Allergies verified and confirmed 5 rights. IV patency established. IV site checked: no pain, redness, or swelling. IV flushed thoroughly pre- and post-medication administration. --09:42 Gini Hernandez R.N. 09:42 05/01/2016 Zofran (Ondansetron HCl) IVP 4 mg given over 1 minute(s) via site #1. Allergies verified and confirmed 5 rights. IV patency established. IV site checked: no pain, redness, or swelling. IV flushed thoroughly pre- and post-medication administration. IVP given by RN. --09:42 Gini Hernandez R.N. 10:26 05/01/2016 Toradol IVP 30 mg given over 1 minute(s) via site #1. Allergies verified and confirmed 5 rights. IV patency established. IV site checked: no pain, redness, or swelling. IV flushed thoroughly pre- and post-medication administration. IVP given by RN. --10:26 Gini Hernandez R.N. 10:27 05/01/16. BP: 119/74. HR: 81. RR: 16. O2 saturation: 99% on room air. Pain level now: 08/15. --10:27 Gini Hernandez R.N. 10:40 05/01/2016 IV Fluids IV NS Discontinued: bag #1 infused. Total amount infused: 1000 mL. IV patency established. IV site checked: no pain, redness, or swelling. IV flushed thoroughly. --10:40 Gini Hernandez R.N. 10:45 05/01/2016 Started bag #1 1000 mL IV Fluids IV NS (Saline); at 150 mL/hr over 4 hour(s) via site #1 via IV pump. Allergies verified and confirmed 5 rights. IV patency established. IV site checked: no pain, redness, or swelling. IV flushed thoroughly pre- and post-medication administration. --10:45 Gini Hernandez R.N. 11:05/01/2016 Site #1 removed upon discharge. Catheter intact. Manual pressure and bandage applied. --11:34 Gini Hernandez R.N. 11:05/01/2016 IV Fluids IV NS Discontinued: bag #2 discontinued upon discharge. Total amount infused: 110 mL. IV patency established. IV site checked: no pain, redness, or swelling. IV flushed thoroughly. --11:34 Gini Hernandez R.N. DISPOSITION / DISCHARGE Departure time: :May 01 2016. Condition at departure: improved and stable. No learning barriers present. Discharge instructions provided and reviewed with the patient. Reviewed medication(s) side effects, precautions and dosing information. Prescription(s) given to the patient (juan j). Patient verbalized understanding. Written instructions provided in [place]ic. The patient was discharged by the physician. She was discharged home and accompanied by motion graphics designer. She left the Emergency Department ambulatory and via private vehicle. Skirt Clipper driving. --11:32 Gini Hernandez R.N. 11:31 05/01/16. BP: 102/64. HR: 87. RR: 16. O2 saturation: 100% on room air. Temp: 98 F. Pain level now: 06/15. --11:32 Gini Hernandez R.N. Locked/Released at 05/01/2016 11:35 by Gini Hernandez R.N.
--- NOTE | 2016-05-01 11:08 | ED NURSING NOTES ---
Clinical Report - Nurses [facility] [address] [place] [address] 05/01/2016 8:55 Patient: LEONIDAS KIM TRIAGE Acuity: LEVEL 3. Chief Complaint: ABDOMINAL PAIN, NAUSEA and DIARRHEA and (headache). Alert. No acute distress. --09:21 Gini Hernandez R.N. 09:13 05/01/16. BP: 133/91. HR: 88. RR: 16. O2 saturation: 99% on room air. Temp: 98.1 F (oral). Pain level now: 11/15. --09: Gini Hernandez R.N. Weight: 69.8 kg stated. Height/Length: 61 inches Per Patient. BMI: 29.1. --09:20 Gini Hernandez R.N. Medications Cyclobenzaprine HCl Oral 10 mg, daily as needed. Lantus Subcutaneous 80 Units, at bedtime. MetFORMIN HCl Oral (Tablet 1000 mg) 1 tablet, 2x a day (500 mg at noon). Novalog sliding scale, before meals. TraZODone HCl Oral 50 mg, at bedtime. --09:18 Gini Hernandez R.N. Medication/allergy information source: the patient. --09: Gini Hernandez R.N. Allergies Tramadol.(nausea) (weakness) --:18 Gini Hernandez R.N. History Arrived by private vehicle. Historian: patient. Unaccompanied. Primary physician ([facility]). This started last night. 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 PAST MEDICAL HX: Last normal menstrual period- today. SOCIAL HX: Current some days light tobacco smoker- less than 1/2 a pack per day. Occasional alcohol use. No drug use. FALL RISK ASSESSMENT: Fall risk assessment completed. No fall risk identified. NUTRITIONAL RISK ASSESSMENT: The nutritional risk assessment revealed no deficiencies. FUNCTIONAL ASSESSMENT: Functional assessment: no impairments noted. LEARNING NEEDS ASSESSMENT: The learning needs assessment revealed no barriers. SKIN INTEGRITY ASSESSMENT: Skin integrity risk assessment completed. No skin integrity risk identified. --09:21 Gini Hernandez R.N. PROBLEMS: Dysuria. Sciatica. Lymphadenitis. Back Pain. Lumbar Radiculopathy. Chronic Back Pain. Contact Dermatitis. Pyelonephritis. Vaginitis. Plantar Fasciitis. Bronchitis. Asthma. Discomfort of . Vulvovaginitis. . Abdominal Pain. Depression. Hypercholesterolemia. Hypertension. Diabetes Mellitus. --09:18 Gini Hernandez R.N. ADDITIONAL SURGERIES: Carpal Tunnel Surgery. . --09:19 Gini Hernandez R.N. Assessment GENERAL / NEURO / PSYCH: Alert. Oriented X 4. Appears in no acute distress. [place] Coma Scale: 15- eyes open spontaneously (4); best verbal response- oriented x 4 (5); best motor response- obeys commands (6). Patient appears calm and cooperative. RESPIRATORY: Respirations not labored. CVS: Capillary refill less than 2 seconds. GI / : Abdomen soft. SKIN: Mucous membranes are pink. Skin is warm and dry. --09: Gini Hernandez R.N. Interventions ID band on patient. To treatment room. Ambulatory. --09: Gini Hernandez R.N. PHYSICAL ASSESSMENT 09:05/01/16. Ambulatory to room. Patient gowned. GENERAL / NEURO / PSYCH: Alert. Oriented X 4. Appears in no acute distress. HEENT: Mucous membranes are pink. RESPIRATORY: Respirations not labored. CVS: Capillary refill less than 2 seconds. GI / : Abdomen soft and nontender. SKIN: Skin is warm and dry. --:25 Gini Hernandez R.N. NURSING PROGRESS NOTES 09:05/01/16. Patient gowned. Two patient identifiers checked. Call light placed in reach. Side rails up x 1. Bed placed in lowest position. Brakes of bed on. Patient ready for evaluation- ED physician notified. --: Gini Hernandez R.N. 09:22 05/01/16. Point of care testing: performed by nurse. Glucose: 198. Result shown to the ED physician. --: Gini Hernandez R.N. 09:05/01/16. Patient ID band checked for patient name and birthdate: patient confirmed. Instructions provided to collect clean catch urine and patient verbalized understanding. Clean catch urine collected with return of red-colored urine, blood clots noted; sample sent to lab for urinalysis and culture. Specimen labeled in the presence of the patient (pt states she is on menses). --09:23 Saundra Walter R.N. 09:36 05/01/2016 Site #1 started via IV in the left antecubital space with an 20g angiocath, with aseptic technique and good blood return; one attempt. Blood drawn: rainbow set. Labeled in the presence of the patient and sent to the lab. --09:41 Gini Hernandez R.N. 09:42 05/01/2016 Started bag #1 1000 mL IV Fluids IV NS (Saline); at 999 mL/hr over 1 hour(s) via site #1 via IV pump. Allergies verified and confirmed 5 rights. IV patency established. IV site checked: no pain, redness, or swelling. IV flushed thoroughly pre- and post-medication administration. --09:42 Gini Hernandez R.N. 09:42 05/01/2016 Zofran (Ondansetron HCl) IVP 4 mg given over 1 minute(s) via site #1. Allergies verified and confirmed 5 rights. IV patency established. IV site checked: no pain, redness, or swelling. IV flushed thoroughly pre- and post-medication administration. IVP given by RN. --09:42 Gini Hernandez R.N. 10:26 05/01/2016 Toradol IVP 30 mg given over 1 minute(s) via site #1. Allergies verified and confirmed 5 rights. IV patency established. IV site checked: no pain, redness, or swelling. IV flushed thoroughly pre- and post-medication administration. IVP given by RN. --10:26 Gini Hernandez R.N. 10:27 05/01/16. BP: 119/74. HR: 81. RR: 16. O2 saturation: 99% on room air. Pain level now: 08/15. --10:27 Gini Hernandez R.N. 10:40 05/01/2016 IV Fluids IV NS Discontinued: bag #1 infused. Total amount infused: 1000 mL. IV patency established. IV site checked: no pain, redness, or swelling. IV flushed thoroughly. --10:40 Gini Hernandez R.N. 10:45 05/01/2016 Started bag #1 1000 mL IV Fluids IV NS (Saline); at 150 mL/hr over 4 hour(s) via site #1 via IV pump. Allergies verified and confirmed 5 rights. IV patency established. IV site checked: no pain, redness, or swelling. IV flushed thoroughly pre- and post-medication administration. --10:45 Gini Hernandez R.N. 11:05/01/2016 Site #1 removed upon discharge. Catheter intact. Manual pressure and bandage applied. --11:34 Gini Hernandez R.N. 11:05/01/2016 IV Fluids IV NS Discontinued: bag #2 discontinued upon discharge. Total amount infused: 110 mL. IV patency established. IV site checked: no pain, redness, or swelling. IV flushed thoroughly. --11:34 Gini Hernandez R.N. DISPOSITION / DISCHARGE Departure time: :May 01 2016. Condition at departure: improved and stable. No learning barriers present. Discharge instructions provided and reviewed with the patient. Reviewed medication(s) side effects, precautions and dosing information. Prescription(s) given to the patient (juan j). Patient verbalized understanding. Written instructions provided in [place]ian. The patient was discharged by the physician. She was discharged home and accompanied by quantometer operator. She left the Emergency Department ambulatory and via private vehicle. Copper Tapper driving. --11:32 Gini Hernandez R.N. 11:31 05/01/16. BP: 102/64. HR: 87. RR: 16. O2 saturation: 100% on room air. Temp: 98 F. Pain level now: 06/15. --11:32 Gini Hernandez R.N. Locked/Released at 05/01/2016 11:35 by Gini Hernandez R.N.
--- NOTE | 2016-05-01 12:49 | ED MAR SUMMARY ---
..... Medication Administration Record [facility] [address] [place] [place] [address] Patient: LEONIDAS KIM Visit ID: [id number] 35y, F Weight: 69.8 kg Height/Length: 61 in BMI: 29.1 ALLERGIES: Tramadol Start 09:42 05/01/2016 Gini Hernandez R.N., Stop 10:40 05/01/2016 Gini Hernandez R.N. Medication Administered: IV NS (SALINE), Dose: IV Fluids over 1 hour(s), Rate: 999 mL/hr, Dispensed: 1000 mL bag, Site: #1 left AC. Medication Ordered: IV NS : initial bolus 1000 mL (1000 mL/hr), then 150 mL/hr for 4h (NOW); Urgent. Given 09:42 05/01/2016 Gini Hernandez R.N. Medication Administered: ZOFRAN [IVP] (ONDANSETRON HCL), Dose: 4 mg IVP over 1 minute(s), Site: #1 left AC. Medication Ordered: Zofran IV 4 mg (NOW). Given 10:26 05/01/2016 Gini Hernandez R.N. Medication Administered: TORADOL [IVP], Dose: 30 mg IVP over 1 minute(s), Site: #1 left AC. Medication Ordered: Toradol IV 30 mg (NOW). Start 10:45 05/01/2016 Gini Hernandez R.N., Stop 11:29 05/01/2016 Gini Hernandez R.N. Medication Administered: IV NS (SALINE), Dose: IV Fluids over 4 hour(s), Rate: 150 mL/hr, Dispensed: 1000 mL bag, Site: #1 left AC. Medication Ordered: IV NS : initial bolus 1000 mL (1000 mL/hr), then 150 mL/hr for 4h (NOW); Urgent.
--- NOTE | 2016-05-01 12:49 | ED MED RECONCILIATION SUMMARY ---
Patient: LEONIDAS KIM Medication Reconciliation Report [facility] VisitID: [id number] [address] [place] [address] 35y, F Registration Date/Time: 05/01/2016 Weight: 69.8 kg Height/Length: 61 in. BMI: 29.1 ALLERGIES: Tramadol The patient's Home Medications are listed below: CONTINUE TAKING THE FOLLOWING MEDICATIONS: Cyclobenzaprine HCl Oral 10 mg, daily Lantus Subcutaneous 80 Units, at bedtime MetFORMIN HCl Oral (1000 mg) 1 tablet, 2x a day, 500 mg at noon Novalog sliding scale, before meals TraZODone HCl Oral 50 mg, at bedtime The source(s) of the original Home Medication information: patient The following Medications were given to the patient in the Emergency Department: IV NS IV Fluids bolus 0, then 999 mL/hr, administered: 05/01/2016 9:42:00 AM Zofran [IVP] IVP 4 mg, administered: 05/01/2016 9:42:00 AM Toradol [IVP] IVP 30 mg, administered: 05/01/2016 10:26:00 AM IV NS IV Fluids bolus 0, then 150 mL/hr, administered: 05/01/2016 10:45:00 AM The following Medications were prescribed to the patient: Zofran 4 mg: Take 1 orally every six hours as needed for nausea/vomiting. Dispense ten (10). No refills. Substitution is permissible. -- Man Trinidad MD
--- NOTE | 2016-05-01 12:49 | ED MED RECONCILIATION SUMMARY ---
Patient: LEONIDAS KIM Medication Reconciliation Report [facility] VisitID: [id number] [address] [place] [address] 35y, F Registration Date/Time: 05/01/2016 Weight: 69.8 kg Height/Length: 61 in. BMI: 29.1 ALLERGIES: Tramadol The patient's Home Medications are listed below: CONTINUE TAKING THE FOLLOWING MEDICATIONS: Cyclobenzaprine HCl Oral 10 mg, daily Lantus Subcutaneous 80 Units, at bedtime MetFORMIN HCl Oral (1000 mg) 1 tablet, 2x a day, 500 mg at noon Novalog sliding scale, before meals TraZODone HCl Oral 50 mg, at bedtime The source(s) of the original Home Medication information: patient The following Medications were given to the patient in the Emergency Department: IV NS IV Fluids bolus 0, then 999 mL/hr, administered: 05/01/2016 9:42:00 AM Zofran [IVP] IVP 4 mg, administered: 05/01/2016 9:42:00 AM Toradol [IVP] IVP 30 mg, administered: 05/01/2016 10:26:00 AM IV NS IV Fluids bolus 0, then 150 mL/hr, administered: 05/01/2016 10:45:00 AM The following Medications were prescribed to the patient: Zofran 4 mg: Take 1 orally every six hours as needed for nausea/vomiting. Dispense ten (10). No refills. Substitution is permissible. -- Man Trinidad MD
--- NOTE | 2016-05-01 12:49 | ED MAR SUMMARY ---
..... Medication Administration Record [facility] [address] [place] [address] Patient: LEONIDAS KIM Visit ID: [id number] 35y, F Weight: 69.8 kg Height/Length: 61 in BMI: 29.1 ALLERGIES: Tramadol Start 09:42 05/01/2016 Gini Hernandez R.N., Stop 10:40 05/01/2016 Gini Hernandez R.N. Medication Administered: IV NS (SALINE), Dose: IV Fluids over 1 hour(s), Rate: 999 mL/hr, Dispensed: 1000 mL bag, Site: #1 left AC. Medication Ordered: IV NS : initial bolus 1000 mL (1000 mL/hr), then 150 mL/hr for 4h (NOW); Urgent. Given 09:42 05/01/2016 Gini Hernandez R.N. Medication Administered: ZOFRAN [IVP] (ONDANSETRON HCL), Dose: 4 mg IVP over 1 minute(s), Site: #1 left AC. Medication Ordered: Zofran IV 4 mg (NOW). Given 10:26 05/01/2016 Gini Hernandez R.N. Medication Administered: TORADOL [IVP], Dose: 30 mg IVP over 1 minute(s), Site: #1 left AC. Medication Ordered: Toradol IV 30 mg (NOW). Start 10:45 05/01/2016 Gini Hernandez R.N., Stop 11:29 05/01/2016 Gini Hernandez R.N. Medication Administered: IV NS (SALINE), Dose: IV Fluids over 4 hour(s), Rate: 150 mL/hr, Dispensed: 1000 mL bag, Site: #1 left AC. Medication Ordered: IV NS : initial bolus 1000 mL (1000 mL/hr), then 150 mL/hr for 4h (NOW); Urgent.
--- NOTE | 2016-05-01 12:49 | ED DISCHARGE INSTRUCTIONS ---
Patient: LEONIDAS KIM General Instructions [facility] VisitID: [id number] [address] [place] [address] 35y, F Registration Date/Time: 05/01/2016 Diarrhea Nausea. Acute headache. Diabetes. INSTRUCTIONS Rest. Drink plenty of fluids. Warnings: Further evaluation is necessary. GENERAL WARNINGS: Return or contact your physician immediately if your condition worsens or changes unexpectedly, if not improving as expected, or if other problems arise. Your Current Medications: CONTINUE TAKING THE FOLLOWING MEDICATIONS: Cyclobenzaprine HCl Oral : 10 mg daily, prn. Lantus Subcutaneous : 80 Units at bedtime. MetFORMIN HCl Oral : Tablet 1000 mg, 1 tablet 2x a day, 500 mg at noon. Novalog* : sliding scale before meals. TraZODone HCl Oral : 50 mg at bedtime. Prescription Medications: Zofran 4 mg: Take 1 orally every six hours as needed for nausea/vomiting. Dispense ten (10). No refills. Substitution is permissible. Understanding of the discharge instructions verbalized by patient. Follow-up with: [facility], , , [address], , [place], [address] Follow up tomorrow. Call for an appointment. ADDITIONAL INFORMATION Diarrhea [Adult, Viral] Diarrhea is usually due to viral gastroenteritis, another name for the "stomach flu." This virus affects the stomach and intestinal tract and usually lasts 2 to 7 days. The main danger from repeated diarrhea is dehydration -- the loss of excess water and minerals from the body. Antibiotics are not effective in this illness, but simple home treatment will be helpful. Home Care: If symptoms are severe, rest at home for the next 24 hours or until you are feeling better. You may use acetaminophen (Tylenol) or ibuprofen (Motrin, Advil) to control fever unless another medicine was prescribed. [ NOTE : If you have chronic liver or kidney disease or ever had a stomach ulcer or GI bleeding, talk with your doctor before using these medicines.] (Aspirin should never be used in anyone under 18 years of age who is ill with a fever. It may cause severe liver damage.) Avoid tobacco, caffeine and alcohol, which may worsen your symptoms. If anti-diarrhea medicine was prescribed, take this only as directed. Sometimes anti-diarrhea medicine can make your condition worse if the cause is an infectious diarrhea. Therefore, anti-diarrhea medicine should not be taken for this condition unless advised by your doctor. During The First 12-24 Hours follow the diet below: BEVERAGES: Sport drinks like Gatorade, soft drinks without caffeine; whit melany, mineral water (plain or flavored), decaffeinated tea and coffee. SOUPS: Clear broth, consomm and bouillon DESSERTS: Plain gelatin (Jell-O), popsicles and fruit juice bars. During The Next 24 Hours you may add the following to the above: Hot cereal, plain toast, bread, rolls, crackers Plain noodles, rice, mashed potatoes, chicken noodle or rice soup Unsweetened canned fruit (avoid pineapple), bananas Limit fat intake to less than 15 grams per day by avoiding margarine, butter, oils, mayonnaise, sauces, gravies, fried foods, peanut butter, meat, poultry and fish. Limit fiber; avoid raw or cooked vegetables, fresh fruits (except bananas) and bran cereals. Limit caffeine and chocolate. No spices or seasonings except salt. During The Next 24 Hours Gradually resume a normal diet, as you feel better and your symptoms lessen. Follow Up with your doctor as advised. Call if not improving within 24 hours or if diarrhea lasts more than one week. If a stool (diarrhea) sample was taken, you may call in 2 days (or as directed) for the results. Get Prompt Medical Attention if any of the following occur: Increasing abdominal pain or constant lower right abdominal pain Continued vomiting (unable to keep liquids down) Frequent diarrhea (more than 5 times a day) Blood in vomit or stool (black or red color) Reduced oral intake Dark urine, reduced urine output Weakness, dizziness, fainting Drowsiness, confusion, stiff neck or seizure Fever of 100.4F (38C) oral or higher, not better with fever medication New rash Diabetes with High Blood Sugar You have been treated for high blood sugar (hyperglycemia). This may be becauseof an infection or other illness;eating too many sweets or starches ; not taking enough insulin. Home care High blood sugar may cause symptoms that you can learn to recognize, such as these: If you feel like your blood sugar may be too high, measure it using a blood or urine test. If it is above your usual range, use the "sliding scale"rRegular insulin dose your doctor gave you to correct this. If no "sliding scale" orders were given, contact your doctor for further advice. If your blood sugar is over 300, and you can't reach your doctor, go to the hospital emergency room. Monitor and write down your blood sugars - and insulin dose, if you take insulin - atleast twice a day. Do this before breakfast and before dinner. Do this for the next 3 to 5 days. Follow-up care Follow up with your health care provderduring the next week to review your blood sugar records. You will find out if you need to adjust your dose of insulin or other medicine for blood sugar. When to seek medical care Get prompt medical attention if either of these occur: High blood sugar.Symptoms are frequent urination, feeling dizzy, thirst, headache, nausea or vomiting, abdominal pain, and drowsiness or loss of consciousness. Low blood sugar. Symptoms are fatigue, headache, shakes, excess sweating, hunger, anxiety, reduced vision, drowsiness, weakness, confusion or loss of consciousness, and seizure. Headache [Unspecified] The cause of your headache today is not clear, but it does not appear to be the sign of any serious illness. Under stress, some people tense the muscles of their shoulder, neck and scalp without knowing it. If this condition lasts long enough, a TENSION HEADACHE can occur. A MIGRAINE HEADACHE is caused by changes in blood flow to the brain. A migraine attack may be triggered by emotional stress, hormone changes during the menstrual cycle, oral contraceptives, alcohol use, certain foods containing tyramine, eye strain, weather changes, missing meals, lack of sleep or oversleeping. Other causes of headache include a viral illness with high fever, head injury with concussion, sinus, ear or throat infection, dental pain and TMJ (jaw joint) pain. More serious but less common causes of headache include stroke, brain hemorrhage, brain tumor, meningitis and encephalitis. Home Care: If you were given pain medicine for this headache, do not drive yourself home. Arrange for a ride, instead. When you get home, try to sleep. You should feel much better when you wake up. Apply heat to the back of your neck to relieve neck muscle spasm. Migraine headaches may respond best to an ice pack on the forehead or at the base of the skull. If you are having nausea or vomiting, follow a light diet until your headache is relieved. If you have a migraine type headache, use sunglasses when in the daylight or around bright indoor lighting until symptoms improve. Bright glaring light can worsen this kind of headache. Follow Up with your doctor if the headache is not better within the next 24 hours. If you have frequent headaches you should discuss a treatment plan with your primary care doctor. By being aware of the earliest signs of headache, and starting treatment right away, you may be able to stop the pain yourself. Get Prompt Medical Attention if any of the following occur: Worsening of your head pain or no improvement within 24 hours Repeated vomiting (unable to keep liquids down) Fever of 100.4F (38C) or higher, or as directed by your healthcare provider Stiff neck Extreme drowsiness, confusion or fainting Dizziness, vertigo (dizziness with spinning sensation) Weakness of an arm or leg or one side of the face Difficulty with speech or vision Ondansetron Oral disintegrating tablet What is this medicine? ONDANSETRON (on CHERI se fitz) is used to treat nausea and vomiting caused by chemotherapy. It is also used to prevent or treat nausea and vomiting after surgery. How should I use this medicine? These tablets are made to dissolve in the mouth. Do not try to push the tablet through the foil backing. With dry hands, peel away the foil backing and gently remove the tablet. Place the tablet in the mouth and allow it to dissolve, then swallow. While you may take these tablets with water, it is not necessary to do so. Talk to your bath mixer regarding the use of this medicine in children. Special care may be needed. What side effects may I notice from receiving this medicine? Side effects that you should report to your doctor or health child care centre director as soon as possible: allergic reactions like skin rash, itching or hives, swelling of the face, lips, or tongue breathing problems dizziness fast or irregular heartbeat feeling faint or lightheaded, falls fever and chills swelling of the hands and feet tightness in the chest Side effects that usually do not require medical attention (report to your doctor or health child care centre director if they continue or are bothersome): constipation or diarrhea headache What may interact with this medicine? Do not take this medicine with any of the following medications: -apomorphine -cisapride -dofetilide -dronedarone -pimozide -thioridazine -ziprasidone This medicine may also interact with the following medications: -carbamazepine -phenytoin -rifampicin -tramadol -other medicines that prolong the QT interval (cause an abnormal heart rhythm) What if I miss a dose? If you miss a dose, take it as soon as you can. If it is almost time for your next dose, take only that dose. Do not take double or extra doses. Where should I keep my medicine? Keep out of the reach of children. Store between 2 and 30 degrees C (36 and 86 degrees F). Throw away any unused medicine after the expiration date. What should I tell my health care provider before I take this medicine? They need to know if you have any of these conditions: heart disease history of irregular heartbeat liver disease low levels of magnesium or potassium in the blood an unusual or allergic reaction to ondansetron, granisetron, other medicines, foods, dyes, or preservatives or trying to get breast-feeding What should I watch for while using this medicine? Check with your doctor or health child care centre director as soon as you can if you have any sign of an allergic reaction. You have been given the following additional information: Diarrhea, Viral (Child) (Adult) Diabetic Hyperglycemia Headache, Unspecified Ondansetron Oral disintegrating tablet Rest. (Electronically signed by Man Trinidad MD 05/01/2016 12:48)
== END 2016-05-01 11:30 | disposition home or self-care (01) ==
LOC: ED SRH 08:54
DX: R19.7 Diarrhea, unspecified (principal); R11.0 Nausea; R51 Headache; E11.9 Type 2 diabetes mellitus without complications; J45.909 Unspecified asthma, uncomplicated; F17.210 Nicotine dependence, cigarettes, uncomplicated; Z79.891 Long term (current) use of opiate analgesic; Z79.84 Long term (current) use of oral hypoglycemic drugs; Z88.5 Allergy status to narcotic agent
CPT/HCPCS: 90004; 90100; 92235; 92530; 93070; 95059

== ENCOUNTER 2016-05-04 02:34 | Emergency (ER) | payer OTHER ==
--- NOTE | 2016-05-04 03:09 | ED NURSING NOTES ---
Clinical Report - Nurses [facility] [address] [place] [address] 05/04/2016 2:35 Patient: LEONIDAS KIM TRIAGE Triage time 02:41. Acuity: LEVEL 4. Chief Complaint: BACK PAIN and (low back pain, radiating up to both shoulders and around to upper chest). Alert. No acute distress. --02:45 Ramila Chandler R.N. 02:40 05/04/16. BP: 140/84. HR: 94. RR: 15 (regular and unlabored). O2 saturation: 100%. Temp: 98.2 F (oral). Pain level now: 09/15. --02:45 Ramila Chandler R.N. Weight: 69.8 kg stated. Height/Length: 61 inches Per Patient. BMI: 29.1. --02:44 Ramila Chandler R.N. Medications Cyclobenzaprine HCl Oral 10 mg, daily as needed. Lantus Subcutaneous 80 Units, at bedtime. MetFORMIN HCl Oral (Tablet 1000 mg) 1 tablet, 2x a day (500 mg at noon). Novalog sliding scale, before meals. TraZODone HCl Oral 50 mg, at bedtime. --02:43 Ramila Chandler R.N. Allergies Tramadol.(nausea) (weakness) --02:43 Ramila Chandler R.N. History Arrived by private vehicle. Historian: patient. Accompanied by friend. Primary physician (Lisa). This started today. 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 Treatment BUSINESS SERVICES SALES AGENT: None. PAST MEDICAL HX: Tetanus status: up-to-date. Immunizations: up-to-date. Last normal menstrual period now. SOCIAL HX: Heavy tobacco smoker (cigarette)- less than 1 pack per day. No alcohol use or drug use. NUTRITIONAL RISK ASSESSMENT: The nutritional risk assessment revealed no deficiencies. FUNCTIONAL ASSESSMENT: Functional assessment: no impairments noted. --02:45 Ramila Chandler R.N. PROBLEMS: Sciatica. Lumbar Radiculopathy. Chronic Back Pain. Pyelonephritis. Plantar Fasciitis. Bronchitis. Asthma. Vulvovaginitis. UTI - Urinary Tract Infection. Depression. Hypercholesterolemia. Hypertension. Diabetes Mellitus. --:43 Ramila Chandler R.N. ADDITIONAL SURGERIES: Carpal Tunnel Surgery. . --:43 Ramila Chandler R.N. Interventions ID band on patient. To treatment room. --:45 Ramila Chandler R.N. PHYSICAL ASSESSMENT Ambulatory to room. Patient gowned. GENERAL / NEURO / PSYCH: Alert. Oriented X 4. Appears in no acute distress. RESPIRATORY: Respirations not labored. [facility]: Capillary refill less than 2 seconds. --:45 Ramila Chandler R.N. NURSING PROGRESS NOTES Head of bed elevated. Two patient identifiers checked. Call light placed in reach. Side rails up x 1. Bed placed in lowest position. Brakes of bed on. --:45 Ramila Chandler R.N. Patient ready for evaluation- chart flagged. --:45 Ramila Chandler R.N. 03:05 05/04/2016 Dilaudid (HYDROmorphone HCl PF) IM 1 mg given. Given in the right ventral gluteus. Allergies verified, confirmed 5 rights and sedative warning given to the patient. --03:07 Ramila Chandler R.N. 03:05 05/04/2016 Phenergan (Promethazine HCl) IM 25 mg given. Given in the left ventral gluteus. Allergies verified, confirmed 5 rights and sedative warning given to the patient. --03:07 Ramila Chandler R.N. DISPOSITION / DISCHARGE Condition at departure: stable. No learning barriers present. Discharge instructions provided and reviewed with the patient. Reviewed medication(s) side effects, precautions, dosing and course information. Prescription(s) given to the patient. Patient verbalized understanding. Written instructions provided in Romansh. The patient was discharged home and accompanied by fiberglass pipe covering supervisor. She left the Emergency Department ambulatory and via private vehicle. Shellfish Grower driving. --03:28 Ramila Chandler R.N. 03:28 05/04/16. BP: deferred. HR: deferred. RR: deferred. O2 saturation: deferred. Temp: deferred. Pain level now deferred. --03:28 Ramila Chandler R.N. Locked/Released at 05/04/2016 3:28 by Ramila Chandler R.N.
--- NOTE | 2016-05-04 03:09 | ED NURSING NOTES ---
Clinical Report - Nurses [facility] [address] [place] [address] 05/04/2016 2:35 Patient: LEONIDAS KIM TRIAGE Triage time 02:41. Acuity: LEVEL 4. Chief Complaint: BACK PAIN and (low back pain, radiating up to both shoulders and around to upper chest). Alert. No acute distress. --02:45 Ramila Chandler R.N. 02:40 05/04/16. BP: 140/84. HR: 94. RR: 15 (regular and unlabored). O2 saturation: 100%. Temp: 98.2 F (oral). Pain level now: 09/15. --02:45 Ramila Chandler R.N. Weight: 69.8 kg stated. Height/Length: 61 inches Per Patient. BMI: 29.1. --02:44 Ramila Chandler R.N. Medications Cyclobenzaprine HCl Oral 10 mg, daily as needed. Lantus Subcutaneous 80 Units, at bedtime. MetFORMIN HCl Oral (Tablet 1000 mg) 1 tablet, 2x a day (500 mg at noon). Novalog sliding scale, before meals. TraZODone HCl Oral 50 mg, at bedtime. --02:43 Ramila Chandler R.N. Allergies Tramadol.(nausea) (weakness) --02:43 Ramila Chandler R.N. History Arrived by private vehicle. Historian: patient. Accompanied by friend. Primary physician (Lisa). This started today. 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 Treatment PROGRAM ELIGIBILITY SPECIALIST: None. PAST MEDICAL HX: Tetanus status: up-to-date. Immunizations: up-to-date. Last normal menstrual period now. SOCIAL HX: Heavy tobacco smoker (cigarette)- less than 1 pack per day. No alcohol use or drug use. NUTRITIONAL RISK ASSESSMENT: The nutritional risk assessment revealed no deficiencies. FUNCTIONAL ASSESSMENT: Functional assessment: no impairments noted. --02:45 Ramila Chandler R.N. PROBLEMS: Sciatica. Lumbar Radiculopathy. Chronic Back Pain. Pyelonephritis. Plantar Fasciitis. Bronchitis. Asthma. Vulvovaginitis. UTI - Urinary Tract Infection. Depression. Hypercholesterolemia. Hypertension. Diabetes Mellitus. --:43 Ramila Chandler R.N. ADDITIONAL SURGERIES: Carpal Tunnel Surgery. . --:43 Ramila Chandler R.N. Interventions ID band on patient. To treatment room. --:45 Ramila Chandler R.N. PHYSICAL ASSESSMENT Ambulatory to room. Patient gowned. GENERAL / NEURO / PSYCH: Alert. Oriented X 4. Appears in no acute distress. RESPIRATORY: Respirations not labored. [facility]: Capillary refill less than 2 seconds. --:45 Ramila Chandler R.N. NURSING PROGRESS NOTES Head of bed elevated. Two patient identifiers checked. Call light placed in reach. Side rails up x 1. Bed placed in lowest position. Brakes of bed on. --:45 Ramila Chandler R.N. Patient ready for evaluation- chart flagged. --:45 Ramila Chandler R.N. 03:05 05/04/2016 Dilaudid (HYDROmorphone HCl PF) IM 1 mg given. Given in the right ventral gluteus. Allergies verified, confirmed 5 rights and sedative warning given to the patient. --03:07 Ramila Chandler R.N. 03:05 05/04/2016 Phenergan (Promethazine HCl) IM 25 mg given. Given in the left ventral gluteus. Allergies verified, confirmed 5 rights and sedative warning given to the patient. --03:07 Ramila Chandler R.N. DISPOSITION / DISCHARGE Condition at departure: stable. No learning barriers present. Discharge instructions provided and reviewed with the patient. Reviewed medication(s) side effects, precautions, dosing and course information. Prescription(s) given to the patient. Patient verbalized understanding. Written instructions provided in Syriac. The patient was discharged home and accompanied by meter installer. She left the Emergency Department ambulatory and via private vehicle. Elementary Esl Teacher driving. --03:28 Ramila Chandler R.N. 03:28 05/04/16. BP: deferred. HR: deferred. RR: deferred. O2 saturation: deferred. Temp: deferred. Pain level now deferred. --03:28 Ramila Chandler R.N. Locked/Released at 05/04/2016 3:28 by Ramila Chandler R.N.
--- NOTE | 2016-05-04 03:09 | ED ORDER SUMMARY ---
..... Patient: LEONIDAS KIM OrderSheet [facility] VisitID: [id number] [address] [place] [address] 35y, F Registration Date/Time: 05/04/2016 ORDER SHEET Weight: 69.8 kg (stated) Allergies: Tramadol GENERAL ORDERS: MEDICATION ORDERS: Dilaudid IM 1 mg (HIGH ALERT MEDICATION, NOW) (02:56 05/04/2016 Anna AZEVEDO) (Ack 3:01 RCollier R.N.) (3:06 RCollier R.N.) Phenergan IM 25 mg (HIGH ALERT MEDICATION, NOW) (02:56 05/04/2016 Anna AZEVEDO) (Ack 3:01 RCollier R.N.) (3:07 RCollier R.N.) IV FLUIDS: ORDER SHEET NOTES: [Electronically signed by Ramila Chandler R.N. (03:28 05/04/2016)] [Electronically signed by Mariano Page DO (06:14 05/04/2016)] [Electronically locked/signed by Ramila Chandler R.N. (03:28 05/04/2016)]
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
--- NOTE | 2016-05-04 03:09 | ED ORDER SUMMARY ---
..... Patient: LEONIDAS KIM OrderSheet [facility] VisitID: [id number] [address] [place] [address] 35y, F Registration Date/Time: 05/04/2016 ORDER SHEET Weight: 69.8 kg (stated) Allergies: Tramadol GENERAL ORDERS: MEDICATION ORDERS: Dilaudid IM 1 mg (HIGH ALERT MEDICATION, NOW) (02:56 05/04/2016 Anna AZEVEDO) (Ack 3:01 RCollier R.N.) (3:06 RCollier R.N.) Phenergan IM 25 mg (HIGH ALERT MEDICATION, NOW) (02:56 05/04/2016 Anna AZEVEDO) (Ack 3:01 RCollier R.N.) (3:07 RCollier R.N.) IV FLUIDS: ORDER SHEET NOTES: [Electronically signed by Ramila Chandler R.N. (03:28 05/04/2016)] [Electronically signed by Mariano Page DO (06:14 05/04/2016)] [Electronically locked/signed by Ramila Chandler R.N. (03:28 05/04/2016)]
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
--- NOTE | 2016-05-04 06:14 | ED DISCHARGE INSTRUCTIONS ---
Patient: LEONIDAS KIM General Instructions [facility] VisitID: [id number] [address] [place] [address] 35y, F Registration Date/Time: 05/04/2016 Nontraumatic lumbar back pain associated with muscle strain; degenerative disc disease of the lumbar spine. Lumbar radiculopathy present. No neurological deficit. Chronic type 2 diabetes. INSTRUCTIONS Apply ice. Limit lifting. Rest. Do not work for three days. Warnings: SEDATIVE MEDICATION: You were given sedative medication during your visit. Do not drive or operate dangerous machinery. CONTROLLED SUBSTANCE WARNINGS. GENERAL WARNINGS: Return or contact your physician immediately if your condition worsens or changes unexpectedly, if not improving as expected, or if other problems arise. Your Current Medications: CONTINUE TAKING THE FOLLOWING MEDICATIONS: Cyclobenzaprine HCl Oral : 10 mg daily, prn. Lantus Subcutaneous : 80 Units at bedtime. MetFORMIN HCl Oral : Tablet 1000 mg, 1 tablet 2x a day, 500 mg at noon. Novalog* : sliding scale before meals. TraZODone HCl Oral : 50 mg at bedtime. Prescription Medications: Hydrocodone/APAP 5mg/325mg: take 1 to 2 orally every 6 hours as needed for pain. Dispense fifteen (15). No refills. Ibuprofen 600mg tablets: take 1 tablet orally every 8 hours as needed for pain. Dispense thirty (30). No refills. Flexeril 10 mg: Take 1 orally every 8 hours as needed for muscle spasm. Dispense twenty (20). No refills. Substitution is permissible. OTC Medications: Acetaminophen (available over the counter): take according to label instructions. Follow-up: Follow up with a specialist- as recommended by your primary care physician- Spine doctor. Follow-up with: [facility], , , [address], [place], [id number] Follow up in about two days. ADDITIONAL INFORMATION Back Pain [Acute Or Chronic] Back pain is usually caused by an injury to the muscles or ligaments of the spine. Sometimes the disks that separate each bone in the spine may bulge and cause pain by pressing on a nearby nerve. Back pain may also appear after a sudden twisting/bending force (such as in a car accident), after a simple awkward movement, or lifting something heavy with poor body positioning. In either case, muscle spasm is often present and adds to the pain. Acute back pain usually gets better in one to two weeks. Back pain related to disk disease, arthritis in the spinal joints or spinal stenosis (narrowing of the spinal canal) can become chronic and last for months or years. Unless you had a physical injury (for example, a car accident or fall) X-rays are usually not ordered for the initial evaluation of back pain. If pain continues and does not respond to medical treatment, x-rays and other tests may be performed at a later time. Home Care: You may need to stay in bed the first few days. But, as soon as possible, begin sitting or walking to avoid problems with prolonged bed rest (muscle weakness, worsening back stiffness and pain, blood clots in the legs). When in bed, try to find a position of comfort. A firm mattress is best. Try lying flat on your back with pillows under your knees. You can also try lying on your side with your knees bent up towards your chest and a pillow between your knees. Avoid prolonged sitting. This puts more stress on the lower back than standing or walking. During the first two days after injury, apply an ICE PACK to the painful area for 20 minutes every 2-4 hours. This will reduce swelling and pain. HEAT (hot shower, hot bath or heating pad) works well for muscle spasm. You can start with ice, then switch to heat after two days. Some patients feel best alternating ice and heat treatments. Use the one method that feels the best to you. You may use acetaminophen (Tylenol) or ibuprofen (Motrin, Advil) to control pain, unless another pain medicine was prescribed. [NOTE: If you have chronic liver or kidney disease or ever had a stomach ulcer or GI bleeding, talk with your doctor before using these medicines.] Be aware of safe lifting methods and do not lift anything over 15 pounds until all the pain is gone. Follow Up with your doctor or this facility if your symptoms do not start to improve after one week. Physical therapy may be needed. [NOTE: If X-rays were taken, they will be reviewed by a radiologist. You will be notified of any new findings that may affect your care.] Get Prompt Medical Attention if any of the following occur: Pain becomes worse or spreads to your legs Weakness or numbness in one or both legs Loss of bowel or bladder control Numbness in the groin or genital area Degenerative Disk Disease Spinal disks are gel-filled cushions between the bones of the spine (vertebrae). The disks act like shock absorbers. Over time, the disks may break down. This disorder is called degenerative disk disease (DDD). DDD can affect the neck or back. It is one of the most common causes of low back pain. It is the leading cause of disability in people under age 45 in the [place]. The pain usually remains localized to the lower back or neck. Muscle spasm is often present and adds to the pain. Disk degeneration is a natural part of aging, although it does not cause pain in most persons. It may also occur as a result of repeated minor injuries due to daily activities, sports, or accidents. It may lead to osteoarthritis of the spine. Back pain related to disk disease may come and go or become chronic and last for months or years. If the disk bulges or ruptures (also called slipped disk or herniated disk), it can put pressure on a nearby spinal nerve and cause neck or back pain that spreads down one arm or leg. X-rays or MRI (magnetic resonance imaging) scan may aid in the diagnosis. For acute pain, treatment consists of anti-inflammatory drugs, muscle relaxants, rest, ice, or heat. Narcotic pain medicines may be needed for short-term treatment of sudden worsening of pain. Due to their addictive potential, narcotics are not advised for long-term pain management. Other types of medicines are preferred. Surgery is usually not used to treat this condition unless there is a complication (such as nerve root compression). Home Care: FOR NECK PAIN: Use a comfortable pillow that supports the head and keeps the spine in a neutral position. The head should not be tilted forward or backward. FOR BACK PAIN: Avoid prolonged sitting. This puts more stress on the lower back than standing or walking. Establishing a regular exercise program to strengthen the supporting muscles of the spine will make it easier to live with DDD. During the first2 days after a flare-up of your pain, apply anice pack to the painful area for 20 minutes every 2-4 hours. This will reduce swelling and pain.Heat (hot shower, hot bath, or heating pad) works well for muscle spasm. You can start with ice, then switch to heat after2 days. Some patients feel best alternating ice and heat treatments. Use the method that feelsbest to you. You may use acetaminophen (Tylenol) or ibuprofen (Motrin, Advil) to control pain, unless another pain medicine was prescribed. [NOTE: If you have chronic liver or kidney disease or ever had a stomach ulcer or GI bleeding, talk with your doctor before using these medicines.] Follow Up with your physician, or as directed by our staff. [NOTE: If x-rays, a CT scan or an MRI scan were taken, they will be reviewed by a radiologist. You will be notified of any new findings that may affect your care.] Return Promptly or contact your doctor if any of the following occur: Increasing back pain New weakness, numbness, or pain in one or both arms or legs Foot drop (foot drags when you walk) Loss of bowel or bladder control Numbness or tingling in the buttock or groin area Unexplained fever over 100.4F (38.0C) Hydrocodone Bitartrate, Acetaminophen Oral tablet What is this medicine? ACETAMINOPHEN; HYDROCODONE (a set a JOSE GUADALUPE ervin fen; luis droe KOE done) is a pain reliever. It is used to treat mild to moderate pain. How should I use this medicine? Take this medicine by mouth. Swallow it with a full glass of water. Follow the directions on the prescription label. If the medicine upsets your stomach, take the medicine with food or milk. Do not take more than you are told to take. Talk to your farm general manager regarding the use of this medicine in children. This medicine is not approved for use in children. What side effects may I notice from receiving this medicine? Side effects that you should report to your doctor or health home health care case manager as soon as possible: allergic reactions like skin rash, itching or hives, swelling of the face, lips, or tongue breathing problems confusion feeling faint or lightheaded, falls stomach pain yellowing of the eyes or skin Side effects that usually do not require medical attention (report to your doctor or health home health care case manager if they continue or are bothersome): nausea, vomiting stomach upset What may interact with this medicine? alcohol antihistamines isoniazid medicines for depression, anxiety, or psychotic disturbances medicines for sleep muscle relaxants naltrexone narcotic medicines (opiates) for pain phenobarbital ritonavir tramadol What if I miss a dose? If you miss a dose, take it as soon as you can. If it is almost time for your next dose, take only that dose. Do not take double or extra doses. Where should I keep my medicine? Keep out of the reach of children. This medicine can be abused. Keep your medicine in a safe place to protect it from theft. Do not share this medicine with anyone. Selling or giving away this medicine is dangerous and against the law. Store at room temperature between 15 and 30 degrees C (59 and 86 degrees F). Protect from light. Keep container tightly closed. Throw away any unused medicine after the expiration date. Discard unused medicine and used packaging carefully. Pets and children can be harmed if they find used or lost packages. What should I tell my health care provider before I take this medicine? They need to know if you have any of these conditions: brain tumor Crohn's disease, inflammatory bowel disease, or ulcerative colitis drink more than 3 alcohol-containing drinks per day drug abuse or addiction head injury heart or circulation problems kidney disease or problems going to the bathroom liver disease lung disease, asthma, or breathing problems an unusual or allergic reaction to acetaminophen, hydrocodone, other opioid analgesics, other medicines, foods, dyes, or preservatives or trying to get breast-feeding What should I watch for while using this medicine? Tell your doctor or health home health care case manager if your pain does not go away, if it gets worse, or if you have new or a different type of pain. You may develop tolerance to the medicine. Tolerance means that you will need a higher dose of the medicine for pain relief. Tolerance is normal and is expected if you take the medicine for a long time. Do not suddenly stop taking your medicine because you may develop a severe reaction. Your body becomes used to the medicine. This does NOT mean you are addicted. Addiction is a behavior related to getting and using a drug for a non-medical reason. If you have pain, you have a medical reason to take pain medicine. Your doctor will tell you how much medicine to take. If your doctor wants you to stop the medicine, the dose will be slowly lowered over time to avoid any side effects. You may get drowsy or dizzy when you first start taking the medicine or change doses. Do not drive, use machinery, or do anything that may be dangerous until you know how the medicine affects you. Stand or sit up slowly. There are different types of narcotic medicines (opiates) for pain. If you take more than one type at the same time, you may have more side effects. Give your health care provider a list of all medicines you use. Your doctor will tell you how much medicine to take. Do not take more medicine than directed. Call emergency for help if you have problems breathing. The medicine will cause constipation. Try to have a bowel movement at least every 2 to 3 days. If you do not have a bowel movement for 3 days, call your doctor or health home health care case manager. Too much acetaminophen can be very dangerous. Do not take Tylenol (acetaminophen) or medicines that contain acetaminophen with this medicine. Many non-prescription medicines contain acetaminophen. Always read the labels carefully. Ibuprofen Oral tablet What is this medicine? IBUPROFEN (eye BYOO proe fen) is a non-steroidal anti-inflammatory drug (NSAID). It is used for dental pain, fever, headaches or migraines, osteoarthritis, rheumatoid arthritis, or painful monthly periods. It can also relieve minor aches and pains caused by a cold, flu, or sore throat. How should I use this medicine? Take this medicine by mouth with a glass of water. Follow the directions on the prescription label. Take this medicine with food if your stomach gets upset. Try to not lie down for at least 10 minutes after you take the medicine. Take your medicine at regular intervals. Do not take your medicine more often than directed. A special MedGuide will be given to you by the pharmacist with each prescription and refill. Be sure to read this information carefully each time. Talk to your farm general manager regarding the use of this medicine in children. Special care may be needed. What side effects may I notice from receiving this medicine? Side effects that you should report to your doctor or health home health care case manager as soon as possible: allergic reactions like skin rash, itching or hives, swelling of the face, lips, or tongue black or bloody stools, blood in the urine or in vomit breathing problems changes in vision chest pain general ill feeling or flu-like symptoms nausea or vomiting redness, blistering, peeling or loosening of the skin, including inside the mouth slurred speech or weakness on one side of the body stomach pain unexplained weight gain or swelling unusually weak or tired yellowing of eyes or skin Side effects that usually do not require medical attention (report to your doctor or health home health care case manager if they continue or are bothersome): constipation or diarrhea dizziness gas or heartburn stomach upset What may interact with this medicine? Do not take this medicine with any of the following medications: cidofovir ketorolac methotrexate pemetrexed This medicine may also interact with the following medications: alcohol aspirin diuretics lithium other drugs for inflammation like prednisone warfarin What if I miss a dose? If you miss a dose, take it as soon as you can. If it is almost time for your next dose, take only that dose. Do not take double or extra doses. Where should I keep my medicine? Keep out of the reach of children. Store at room temperature between 15 and 30 degrees C (59 and 86 degrees F). Keep container tightly closed. Throw away any unused medicine after the expiration date. What should I tell my health care provider before I take this medicine? They need to know if you have any of these conditions: asthma cigarette smoker drink more than 3 alcohol containing drinks a day heart disease or circulation problems such as heart failure or leg edema (fluid retention) high blood pressure kidney disease liver disease stomach bleeding or ulcers an unusual or allergic reaction to ibuprofen, aspirin, other NSAIDS, other medicines, foods, dyes, or preservatives or trying to get breast-feeding What should I watch for while using this medicine? Tell your doctor or healthcare professional if your symptoms do not start to get better or if they get worse. This medicine does not prevent heart attack or stroke. In fact, this medicine may increase the chance of a heart attack or stroke. The chance may increase with longer use of this medicine and in people who have heart disease. If you take aspirin to prevent heart attack or stroke, talk with your doctor or health home health care case manager. Do not take other medicines that contain aspirin, ibuprofen, or naproxen with this medicine. Side effects such as stomach upset, nausea, or ulcers may be more likely to occur. Many medicines available without a prescription should not be taken with this medicine. This medicine can cause ulcers and bleeding in the stomach and intestines at any time during treatment. Ulcers and bleeding can happen without warning symptoms and can cause . To reduce your risk, do not smoke cigarettes or drink alcohol while you are taking this medicine. You may get drowsy or dizzy. Do not drive, use machinery, or do anything that needs mental alertness until you know how this medicine affects you. Do not stand or sit up quickly, especially if you are an older patient. This reduces the risk of dizzy or fainting spells. This medicine can cause you to bleed more easily. Try to avoid damage to your teeth and gums when you brush or floss your teeth. Cyclobenzaprine Hydrochloride Oral tablet What is this medicine? CYCLOBENZAPRINE (glo mcknight) is a muscle relaxer. It is used to treat muscle pain, spasms, and stiffness. How should I use this medicine? Take this medicine by mouth with a glass of water. Follow the directions on the prescription label. If this medicine upsets your stomach, take it with food or milk. Take your medicine at regular intervals. Do not take it more often than directed. Talk to your farm general manager regarding the use of this medicine in children. Special care may be needed. What side effects may I notice from receiving this medicine? Side effects that you should report to your doctor or health home health care case manager as soon as possible: allergic reactions like skin rash, itching or hives, swelling of the face, lips, or tongue chest pain fast heartbeat hallucinations seizures vomiting Side effects that usually do not require medical attention (report to your doctor or health home health care case manager if they continue or are bothersome): headache What may interact with this medicine? Do not take this medicine with any of the following medications: cisapride droperidol flecainide grepafloxacin halofantrine levomethadyl MAOIs like Carbex, Eldepryl, Marplan, Nardil, and Parnate nilotinib pimozide probucol sertindole This medicine may also interact with the following medications: abarelix alcohol contrast dyes dolasetron guanethidine medicines for cancer medicines for depression, anxiety, or psychotic disturbances medicines to treat an irregular heartbeat medicines used for sleep or numbness during surgery or procedure methadone octreotide ondansetron palonosetron phenothiazines like chlorpromazine, mesoridazine, prochlorperazine, thioridazine some medicines for infection like alfuzosin, chloroquine, clarithromycin, levofloxacin, mefloquine, pentamidine, troleandomycin tramadol vardenafil What if I miss a dose? If you miss a dose, take it as soon as you can. If it is almost time for your next dose, take only that dose. Do not take double or extra doses. Where should I keep my medicine? Keep out of the reach of children. Store at room temperature between 15 and 30 degrees C (59 and 86 degrees F). Keep container tightly closed. Throw away any unused medicine after the expiration date. What should I tell my health care provider before I take this medicine? They need to know if you have any of these conditions: heart disease, irregular heartbeat, or previous heart attack liver disease thyroid problem an unusual or allergic reaction to cyclobenzaprine, tricyclic antidepressants, lactose, other medicines, foods, dyes, or preservatives or trying to get breast-feeding What should I watch for while using this medicine? Check with your doctor or health home health care case manager if your condition does not improve within 1 to 3 weeks. You may get drowsy or dizzy when you first start taking the medicine or change doses. Do not drive, use machinery, or do anything that may be dangerous until you know how the medicine affects you. Stand or sit up slowly. Your mouth may get dry. Drinking water, chewing sugarless gum, or sucking on hard candy may help. Acetaminophen Oral tablet What is this medicine? ACETAMINOPHEN (a set a JOSE GUADALUPE ervin fen) is a pain reliever. It is used to treat mild pain and fever. How should I use this medicine? Take this medicine by mouth with a glass of water. Follow the directions on the package or prescription label. Take your medicine at regular intervals. Do not take your medicine more often than directed. Talk to your farm general manager regarding the use of this medicine in children. While this drug may be prescribed for children as young as 6 years of age for selected conditions, precautions do apply. What side effects may I notice from receiving this medicine? Side effects that you should report to your doctor or health home health care case manager as soon as possible: allergic reactions like skin rash, itching or hives, swelling of the face, lips, or tongue breathing problems fever or sore throat redness, blistering, peeling or loosening of the skin, including inside the mouth trouble passing urine or change in the amount of urine unusual bleeding or bruising unusually weak or tired yellowing of the eyes or skin Side effects that usually do not require medical attention (report to your doctor or health home health care case manager if they continue or are bothersome): headache nausea, stomach upset What may interact with this medicine? alcohol imatinib isoniazid other medicines with acetaminophen What if I miss a dose? If you miss a dose, take it as soon as you can. If it is almost time for your next dose, take only that dose. Do not take double or extra doses. Where should I keep my medicine? Keep out of reach of children. Store at room temperature between 20 and 25 degrees C (68 and 77 degrees F). Protect from moisture and heat. Throw away any unused medicine after the expiration date. What should I tell my health care provider before I take this medicine? They need to know if you have any of these conditions: if you frequently drink alcohol containing drinks liver disease an unusual or allergic reaction to acetaminophen, other medicines, foods, dyes or preservatives or trying to get breast-feeding What should I watch for while using this medicine? Tell your doctor or health home health care case manager if the pain lasts more than 10 days (5 days for children), if it gets worse, or if there is a new or different kind of pain. Also, check with your doctor if a fever lasts for more than 3 days. Do not take other medicines that contain acetaminophen with this medicine. Always read labels carefully. If you have questions, ask your doctor or pharmacist. If you take too much acetaminophen get medical help right away. Too much acetaminophen can be very dangerous and cause liver damage. Even if you do not have symptoms, it is important to get help right away. You have been given the following additional information: Back Pain (Acute Or Chronic) Degenerative Disk Disease Hydrocodone Bitartrate, Acetaminophen Oral tablet Ibuprofen Oral tablet Cyclobenzaprine Hydrochloride Oral tablet Acetaminophen Oral tablet Limit lifting. Rest. Do not work for three days. (Electronically signed by Mariano Page DO 05/04/2016 6:14)
--- NOTE | 2016-05-04 06:14 | ED MAR SUMMARY ---
..... Medication Administration Record [facility] [address] [place] [address] Patient: LEONIDAS KIM Visit ID: [id number] 35y, F Weight: 69.8 kg Height/Length: 61 in BMI: 29.1 ALLERGIES: Tramadol Given 03:05 05/04/2016 Ramila Chandler, R.N. Medication Administered: DILAUDID [IM] (HYDROMORPHONE HCL PF), Dose: 1 mg IM. Medication Ordered: Dilaudid IM 1 mg (HIGH ALERT MEDICATION, NOW). Given 03:05 05/04/2016 Ramila Chandler, R.N. Medication Administered: PHENERGAN [IM] (PROMETHAZINE HCL), Dose: 25 mg IM. Medication Ordered: Phenergan IM 25 mg (HIGH ALERT MEDICATION, NOW).
--- NOTE | 2016-05-04 06:14 | ED MAR SUMMARY ---
..... Medication Administration Record [facility] [address] [place] [address] Patient: LEONIDAS KIM Visit ID: [id number] 35y, F Weight: 69.8 kg Height/Length: 61 in BMI: 29.1 ALLERGIES: Tramadol Given 03:05 05/04/2016 Ramila Chandler, R.N. Medication Administered: DILAUDID [IM] (HYDROMORPHONE HCL PF), Dose: 1 mg IM. Medication Ordered: Dilaudid IM 1 mg (HIGH ALERT MEDICATION, NOW). Given 03:05 05/04/2016 Ramila Chandler, R.N. Medication Administered: PHENERGAN [IM] (PROMETHAZINE HCL), Dose: 25 mg IM. Medication Ordered: Phenergan IM 25 mg (HIGH ALERT MEDICATION, NOW).
--- NOTE | 2016-05-04 06:14 | ED MED RECONCILIATION SUMMARY ---
Patient: LEONIDAS KIM Medication Reconciliation Report [facility] VisitID: [id number] [address] [place] [address] 35y, F Registration Date/Time: 05/04/2016 Weight: 69.8 kg Height/Length: 61 in. BMI: 29.1 ALLERGIES: Tramadol The patient's Home Medications are listed below: CONTINUE TAKING THE FOLLOWING MEDICATIONS: Cyclobenzaprine HCl Oral 10 mg, daily Lantus Subcutaneous 80 Units, at bedtime MetFORMIN HCl Oral (1000 mg) 1 tablet, 2x a day, 500 mg at noon Novalog sliding scale, before meals TraZODone HCl Oral 50 mg, at bedtime The source(s) of the original Home Medication information: Not obtained. The following Medications were given to the patient in the Emergency Department: Dilaudid [IM] IM 1 mg, administered: 05/04/2016 3:05:00 AM Phenergan [IM] IM 25 mg, administered: 05/04/2016 3:05:00 AM The following Medications were prescribed to the patient: Acetaminophen (available over the counter): take according to label instructions. -- Mariano Page DO Hydrocodone/APAP 5mg/325mg: take 1 to 2 orally every 6 hours as needed for pain. Dispense fifteen (15). No refills. -- Mariano Page DO Ibuprofen 600mg tablets: take 1 tablet orally every 8 hours as needed for pain. Dispense thirty (30). No refills. -- Mariano Page DO Flexeril 10 mg: Take 1 orally every 8 hours as needed for muscle spasm. Dispense twenty (20). No refills. Substitution is permissible. -- Mariano Page DO
--- NOTE | 2016-05-04 06:14 | ED MED RECONCILIATION SUMMARY ---
Patient: LEONIDAS KIM Medication Reconciliation Report [facility] VisitID: [id number] [address] [place] [address] 35y, F Registration Date/Time: 05/04/2016 Weight: 69.8 kg Height/Length: 61 in. BMI: 29.1 ALLERGIES: Tramadol The patient's Home Medications are listed below: CONTINUE TAKING THE FOLLOWING MEDICATIONS: Cyclobenzaprine HCl Oral 10 mg, daily Lantus Subcutaneous 80 Units, at bedtime MetFORMIN HCl Oral (1000 mg) 1 tablet, 2x a day, 500 mg at noon Novalog sliding scale, before meals TraZODone HCl Oral 50 mg, at bedtime The source(s) of the original Home Medication information: Not obtained. The following Medications were given to the patient in the Emergency Department: Dilaudid [IM] IM 1 mg, administered: 05/04/2016 3:05:00 AM Phenergan [IM] IM 25 mg, administered: 05/04/2016 3:05:00 AM The following Medications were prescribed to the patient: Acetaminophen (available over the counter): take according to label instructions. -- Mariano Page DO Hydrocodone/APAP 5mg/325mg: take 1 to 2 orally every 6 hours as needed for pain. Dispense fifteen (15). No refills. -- Marinao Page DO Ibuprofen 600mg tablets: take 1 tablet orally every 8 hours as needed for pain. Dispense thirty (30). No refills. -- Mariano Page DO Flexeril 10 mg: Take 1 orally every 8 hours as needed for muscle spasm. Dispense twenty (20). No refills. Substitution is permissible. -- Mariano Page DO
== END 2016-05-04 03:27 | disposition home or self-care (01) ==
LOC: ED SRH 02:34
DX: S39.012A Strain of muscle, fascia and tendon of lower back, initial encounter (principal); M51.16 Intervertebral disc disorders with radiculopathy, lumbar region; E11.9 Type 2 diabetes mellitus without complications; X50.0XXA Overexertion from strenuous movement or load, initial encounter; Y93.89 Activity, other specified; Y92.009 Unspecified place in unspecified non-institutional (private) residence as the place of occurrence of the external cause; Y99.9 Unspecified external cause status

== ENCOUNTER 2016-06-18 23:21 | Emergency (ER) | payer OTHER ==
--- NOTE | 2016-06-19 01:25 | ED ORDER SUMMARY ---
..... Patient: LEONIDAS KIM OrderSheet [facility] VisitID: [id number] [address] [place] [address] 35y, F Registration Date/Time: 06/18/2016 ORDER SHEET Weight: 68.0 kg (stated) Allergies: Tramadol GENERAL ORDERS: UA-Culture if indicated Urgent (23:40 06/18/2016 DDavis R.N. per protocol) (23:40 DDavis R.N.) Urine Urgent (23:40 06/18/2016 DDavis R.N. per protocol) (23:40 DDavis R.N.) Lipase Urgent (23:40 06/18/2016 DDavis R.N. per protocol) (23:41 DDavis R.N.) Amylase Urgent (23:40 06/18/2016 DDavis R.N. per protocol) (23:41 DDavis R.N.) CMP Urgent (23:40 06/18/2016 DDavis R.N. per protocol) (23:41 DDavis R.N.) CBC w Diff Urgent (23:40 06/18/2016 DDavis R.N. 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 per protocol) (23:40 DDavis R.N.) Toradol IV 30 mg (NOW) (00:03 06/19/2016 Ceasar Diaz) (0:15 DDavis R.N.) IV NS : initial bolus none -, then 1000 mL/hr for X1 (NOW) (00:03 06/19/2016 Ceasar Diaz) (0:15 Vero Barr) Demerol IV 25 mg (HIGH ALERT MEDICATION, NOW) (00:55 06/19/2016 Ceasar Diaz) (1:01 Vero Barr) ORDER SHEET NOTES: [Electronically signed by Yvan Carlson Dr. (01:25 06/19/2016)] [Electronically signed by Dave Lam R.N. (:33 06/19/2016)] [Electronically locked/signed by Dave Lam R.N. (:06/19/2016)]
--- NOTE | 2016-06-19 01:25 | ED CLINICAL REPORT ---
Clinical Report - Physicians/Mid Levels [facility] [address] [place] [address] 06/18/2016 23:23 Patient: LEONIDAS KIM Time Seen: 23:26; initial patient contact. Arrived- By private vehicle. Historian- patient. HISTORY OF PRESENT ILLNESS Chief Complaint: ABDOMINAL PAIN. At its maximum, severity described as moderate. When seen in the E.D., severity described as moderate. Modifying factors. Not worsened by anything. Not relieved by anything. It is described as "pain" and it is described as located in the right side of the back and left side of the back and in the lower abdomen and radiating to the low back. This started today. No nausea, loss of appetite, vomiting or diarrhea. Similar symptoms previously: None. Recent medical care: Not recently seen/assessed. REVIEW OF SYSTEMS No constipation, pain with urination, urinary frequency, fever or chills. All systems otherwise negative, except as recorded above. PAST HISTORY Nausea. Diarrhea. Dysuria. Sciatica. Lymphadenitis. Back Pain. Lumbar Radiculopathy. Chronic Back Pain. Contact Dermatitis. Pyelonephritis. Vaginitis. Plantar Fasciitis. Bronchitis. Asthma. OB History. Discomfort of . Vulvovaginitis. Upper Extremity Pain. Cervical Strain. Depression. Insomnia. Hypercholesterolemia. Hypertension. Diabetes Mellitus. Ovarian Cyst. SURGERIES: Carpal Tunnel Surgery. . Medications: Cyclobenzaprine HCl Oral 10 mg, daily as needed. Lantus Subcutaneous 80 Units, at bedtime. MetFORMIN HCl Oral (Tablet 1000 mg) 1 tablet, 2x a day (500 mg at noon). Novalog sliding scale, before meals. TraZODone HCl Oral 50 mg, at bedtime. Allergies: Tramadol.(nausea) (weakness). SOCIAL HISTORY Current every day smoker. Occasional alcohol use. No drug use. ADDITIONAL NOTES The nursing notes have been reviewed. PHYSICAL EXAM Vital Signs: 06/18/2016 23:30 BP: 130/78. HR: 96. RR: 24. O2 saturation: 100%. Temp: 98.1 F. Pain level now: 8/10. Have been reviewed. Blood pressure normal. Heart rate normal. Tachypneic. Temperature normal. Oxygen saturation normal. Appearance: Alert. Oriented X3. No acute distress. Eyes: Eyes normal inspection. No scleral icterus. ENT: Pharynx normal. CVS: Normal heart rate and rhythm. Heart sounds normal. Respiratory: No respiratory distress. Breath sounds normal. Abdomen: Soft and nontender. Bowel sounds normal. No organomegaly. No mass. Back: Mild soft-tissue tenderness in the right lower and left lower lumbar area. Mild muscle spasm in the right lower and left lower lumbar spine region. No CVA tenderness or vertebral point tenderness. Neuro: Oriented X 3. No motor deficit. No sensory deficit. (SLR's neg). LABS, X-RAYS, AND EKG LS-Spine X-rays: Mild lumbar scoliosis (Levo). No fracture or subluxation. No bony lesion. (Constipation). Views: AP and lateral. Technique: good. The X-rays were independently viewed by me and interpreted contemporaneously by me. A comparison with prior films reveals that the findings are unchanged. Laboratory Tests: Acetone, Serum: (TIMO: 06/19/2016 00:01) ( [facility] Final results Test Result Flag Units (Reference) ACETONE, SERUM QUALITATIVE NEGATIVE (NEGATIVE) UA-Culture if indicated: (TIMO: 06/18/2016 23:40) ( [facility] 06/19/2016 00:04) Final results Test Result Flag Units (Reference) URINE COLOR YELLOW URINE APPEARANCE CLEAR URINE GLUCOSE 3+ (NEGATIVE) URINE BILIRUBIN NEGATIVE (NEGATIVE) URINE KETONE TRACE (NEGATIVE) URINE SPECIFIC GRAVITY 1.010 (1.010-1.030) URINE PH 6.0 (5.0-8.0) URINE PROTEIN NEGATIVE (NEGATIVE) URINE UROBILINOGEN 1.0 EU/dL (0.2-1.0) URINE NITRITE NEGATIVE (NEGATIVE) URINE BLOOD NEGATIVE (NEGATIVE) URINE LEUK ESTERASE NEGATIVE (NEGATIVE) URINE RBC 0-1 rbc/hpf (0-1) URINE WBC 0-1 wbc/hpf (0-1) URINE EPITHELIAL CELLS 0-1 EPI/hpf (0-5) URINE BACTERIA NONE SEEN (NONE SEEN) URINE COMMENT CULT NOT INDICATED URINE CULTURES ARE SET-UP BASED ON THE FOLLOWING CRITERIA:POSITIVE NITRITEPOSITIVE LEUKOCYTE ESTERASEGREATER THAN 10 WHITE BLOOD CELLSMODERATE (2+) OR GREATER BACTERIA Urine: (TIMO: 06/18/2016 23:40) ( [facility] 06/18/2016 23:56) Final results Test Result Flag Units (Reference) URINE NEGATIVE CBC w Diff: (TIMO: 06/18/2016 23:40) ( [facility] 06/19/2016 00:18) Final results Test Result Flag Units (Reference) WHITE BLOOD COUNT 8.3 K/uL (4.5-11.5) RED BLOOD COUNT 5.35 H M/uL (4.00-5.20) HEMOGLOBIN 14.8 gm/dL (12.0-16.0) HEMATOCRIT 43.4 % (36.0-46.0) MEAN CELL VOLUME 81 fL (80-100) MEAN CORPUSCULAR HGB 28 pg (26-34) MEAN CORPUSCULAR HGB CONC 34 g/dL (31-37) RED CELL DISTRIBUTION WIDTH 14.1 % (11.6-14.8) PLATELET COUNT 348 K/uL (150-400) NEUTROPHIL % 53.9 % (50-75) LYMPH % 37.1 % (25-40) MONO % 6.1 % (3-14) EOSINOPHIL % 2.7 % (0-4) BASOPHIL % 0.2 % (0-2) CMP: (TIMO: 06/18/2016 23:40) ( [facility] 06/19/2016 00:07) Final results Test Result Flag Units (Reference) GLUCOSE 324 H mg/dL (70-110) BUN 15 mg/dL (7-18) CREATININE 0.7 mg/dL (0.6-1.3) Estimated GFR >60 mL/min Estimated GFR- >60 mL/min Note: Persistent reduction over 3 months in eGFR<60 mL/min/1.73 m2 defines CKD. Patients with eGFR values>=60 mL/min/1.73 m2 may also have CKD if evidence ofpersistent proteinuria. Additional information may be foundat www.kidney.org. SODIUM 135 L mmol/L (136-145) POTASSIUM 3.8 mmol/L (3.5-5.1) CHLORIDE 97 L mmol/L (98-107) CARBON DIOXIDE 25 mmol/L (21-32) CALCIUM 9.2 mg/dL (8.5-10.1) TOTAL PROTEIN 8.3 H g/dL (6.4-8.2) ALBUMIN 4.0 g/dL (3.3-5.0) BILIRUBIN, TOTAL 0.4 mg/dL (0.0-1.0) ALKALINE PHOSPHATASE 127 H U/L (46-116) AST (SGOT) 21 U/L (15-37) ALT (SGPT) 72 U/L (12-78) LIPASE 183 U/L (73-393) AMYLASE 28 U/L (25-115) . PROGRESS AND PROCEDURES Disposition: Discharged home in good condition. Condition: good. CLINICAL IMPRESSION Constipation INSTRUCTIONS Your Current Medications: CONTINUE TAKING THE FOLLOWING MEDICATIONS: Cyclobenzaprine HCl Oral : 10 mg daily, prn. Lantus Subcutaneous : 80 Units at bedtime. MetFORMIN HCl Oral : Tablet 1000 mg, 1 tablet 2x a day, 500 mg at noon. Novalog* : sliding scale before meals. TraZODone HCl Oral : 50 mg at bedtime. Prescription Medications: Miralax: take 1 package mixed in 8 ounces water every day as needed for constipation. Dispense one (1) twelve pack. No refills. Substitution is permissible. OTC Medications: Colace 100 mg capsules (available over the counter): take 1 capsule orally, once daily and for 14 days. No refill. Substitution is permissible. Follow-up: Follow up with your doctor in about two days. Call for an appointment. Screening today revealed the patient's blood pressure to be in the pre-hypertensive range. The patient should follow up with a primary care provider for blood pressure management. (Electronically signed by Yvan Carlson Dr. 06/19/2016 1:25)
--- NOTE | 2016-06-19 01:25 | ED ORDER SUMMARY ---
..... Patient: LEONIDAS KIM OrderSheet [facility] VisitID: [id number] [address] [place] [address] 35y, F Registration Date/Time: 06/18/2016 ORDER SHEET Weight: 68.0 kg (stated) Allergies: Tramadol GENERAL ORDERS: UA-Culture if indicated Urgent (23:40 06/18/2016 DDavis R.N. per protocol) (23:40 DDavis R.N.) Urine Urgent (23:40 06/18/2016 DDavis R.N. per protocol) (23:40 DDavis R.N.) Lipase Urgent (23:40 06/18/2016 DDavis R.N. per protocol) (23:41 DDavis R.N.) Amylase Urgent (23:40 06/18/2016 DDavis R.N. per protocol) (23:41 DDavis R.N.) CMP Urgent (23:40 06/18/2016 DDavis R.N. per protocol) (23:41 DDavis R.N.) CBC w Diff Urgent (23:40 06/18/2016 DDavis R.N. 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 per protocol) (23:40 DDavis R.N.) Toradol IV 30 mg (NOW) (00:03 06/19/2016 Ceasar Diaz) (0:15 DDavis R.N.) IV NS : initial bolus none -, then 1000 mL/hr for X1 (NOW) (00:03 06/19/2016 Ceasar Diaz) (0:15 Vero Barr) Demerol IV 25 mg (HIGH ALERT MEDICATION, NOW) (00:55 06/19/2016 Ceasar Diaz) (1:01 Vero Barr) ORDER SHEET NOTES: [Electronically signed by Yvan Carlson Dr. (01:25 06/19/2016)] [Electronically signed by Dave Lam R.N. (:33 06/19/2016)] [Electronically locked/signed by Dave Lam R.N. (:06/19/2016)]
--- NOTE | 2016-06-19 01:25 | ED NURSING NOTES ---
Clinical Report - Nurses [facility] [address] [place] [address] 06/18/2016 23:23 Patient: LEONIDAS KIM TRIAGE Triage time 23:33. Acuity: LEVEL 3. Chief Complaint: ABDOMINAL PAIN. Alert. KALI COMA SCORE: Kali Coma Scale: 15- eyes open spontaneously (4); best verbal response- oriented x 4 (5); best motor response- obeys commands (6). --23:37 Dave Lam R.N. 23:30 06/18/16. BP: 130/78. HR: 96. RR: 24 (regular and unlabored). O2 saturation: 100%. Temp: 98.1 F (oral). Pain level now: 09/15. --23:37 Dave Lam R.N. Weight: 68 kg stated. Height/Length: 61 inches Per Patient. BMI: 28.3. --23:32 Dave Lam R.N. Medications Cyclobenzaprine HCl Oral 10 mg, daily as needed. Lantus Subcutaneous 80 Units, at bedtime. MetFORMIN HCl Oral (Tablet 1000 mg) 1 tablet, 2x a day (500 mg at noon). Novalog sliding scale, before meals. TraZODone HCl Oral 50 mg, at bedtime. --23:30 Dave Lam R.N. Allergies Tramadol.(nausea) (weakness) --23:30 Dave Lam R.N. History Arrived by private vehicle. Historian: patient. Accompanied by friend. This started yesterday. ( pt states that she has lower abdominal pain that radiates to the left.). No nausea, vomiting or diarrhea. SOCIAL HX: Smoker- current status unknown (cigarette). Occasional alcohol use. No drug use. ( denies SI/HI). ABUSE ASSESSMENT: No report of abuse. --23:37 Dave Lam R.N. FALL RISK ASSESSMENT: Fall risk assessment completed. No fall risk identified. NUTRITIONAL RISK ASSESSMENT: The nutritional risk assessment revealed no deficiencies. FUNCTIONAL ASSESSMENT: Functional assessment: no impairments noted. LEARNING NEEDS ASSESSMENT: The learning needs assessment revealed no barriers. SKIN INTEGRITY ASSESSMENT: Skin integrity risk assessment completed. No skin integrity risk identified. --23:37 Dave Lam R.N. PROBLEMS: Nausea. Diarrhea. Dysuria. Sciatica. Lymphadenitis. Back Pain. Lumbar Radiculopathy. Chronic Back Pain. Contact Dermatitis. Pyelonephritis. Vaginitis. Plantar Fasciitis. Bronchitis. Asthma. OB History. Discomfort of . Vulvovaginitis. Upper Extremity Pain. Cervical Strain. Depression. Insomnia. Hypercholesterolemia. Hypertension. Diabetes Mellitus. --23:32 Dave Lam R.N. Ovarian Cyst. --23:41 Dave Lam R.N. ADDITIONAL SURGERIES: Carpal Tunnel Surgery. . --23:32 Dave Lam R.N. Interventions ID band on patient. To treatment room. --23:37 Dave Lam R.N. PHYSICAL ASSESSMENT Ambulatory to room. Patient gowned. GENERAL / NEURO / PSYCH: Alert. Oriented X 4. HEENT: Mucous membranes are pink. RESPIRATORY: Respirations not labored. Breath sounds within normal limits. CVS: Capillary refill less than 2 seconds. GI / : Abdominal tenderness. Normal bowel sounds. ( pt states having intermittent burning when urinating). SKIN: Skin is warm and dry. --23:39 Dave Lam R.N. NURSING PROGRESS NOTES Patient gowned. Head of bed elevated. Reassurance given. Patient ID band checked for patient name and birthdate. Instructions provided to collect clean catch urine and patient verbalized understanding. Clean catch urine collected; sample sent to lab for urinalysis. Call light placed in reach. Side rails up x 1. Bed placed in lowest position. Brakes of bed on. Patient ready for evaluation- chart flagged. Patient waiting for evaluation. --23:37 Dave Lam R.N. 23:40 06/18/2016 Site #1 started via IV in the left antecubital space with an 20g angiocath; one attempt. Blood drawn: rainbow set. Labeled in the presence of the patient and sent to the lab. Saline lock flushed with 10 mL saline (IV started by STORM Elizalde). --23:40 Dave Lam R.N. ( 0010: checked Blood Sugar: 274 mg/dL). --00:14 Ayala Lambert 00:11 06/19/2016 Toradol IVP 30 mg given over 2 minute(s) via site #1. Allergies verified and confirmed 5 rights. IV patency established. IV site checked: no pain, redness, or swelling. IV flushed thoroughly pre- and post-medication administration. IVP given by RN. --00:15 Dave Lam R.N. 00:13 06/19/2016 Started bag #1 1000 mL IV Fluids IV NS (Saline); at 1000 mL/hr over 1 hour(s) via site #1. Allergies verified and confirmed 5 rights. IV patency established. IV site checked: no pain, redness, or swelling. IV flushed thoroughly pre- and post-medication administration. Completed per protocol. --00:15 Dave Lam R.N. 00:16 06/19/16. BP: 124/79. HR: 100 (regular). RR: 20. O2 saturation: 98% on room air. --00:17 Dave Lam R.N. ( patient calm and resting in bed). --00:17 Dave Lam R.N. 00:56 06/19/2016 Demerol (Meperidine HCl) IVP 25 mg given over 2 minute(s) via site #1. Allergies verified and confirmed 5 rights. IV patency established. IV site checked: no pain, redness, or swelling. IV flushed thoroughly pre- and post-medication administration. IVP given by RN. --01:01 Dave Lam R.N. 01:07 06/19/2016 Insulin Reg Subcutaneous 8 unit given. Given in the left upper arm. Allergies verified and confirmed 5 rights. --01:12 Dave Lam R.N. 01:17 06/19/2016 IV Fluids IV NS Discontinued: completed. Total amount infused: 1000 mL. IV patency established. IV site checked: no pain, redness, or swelling. IV flushed thoroughly. --01:33 Dave Lam R.N. DISPOSITION / DISCHARGE 01:31 06/19/2016 Site #1 removed upon discharge. Manual pressure and bandage applied. --01:31 Dave Lam R.N. Departure time: 01:30. Condition at departure: stable. No learning barriers present. Discharge instructions provided and reviewed with licensed clinical psychologist and the patient. Reviewed warnings. Reviewed medication(s) side effects, precautions, dosing and course information. Prescription(s) given to the patient. Treatments reviewed. Reviewed referrals for followup. Patient and licensed clinical psychologist verbalized understanding. Written instructions provided in [place]. The patient was discharged home and accompanied by licensed clinical psychologist. She left the Emergency Department ambulatory and via private vehicle. Cupola Repairer driving. ( Patient awake and alert). --01:32 Dave Lam R.N. 01:30 06/19/16. BP: 119/76. HR: 91. RR: 20 (regular and unlabored). O2 saturation: 98% on room air. Pain level now: 07/16. --01:32 Dave Lam R.N. Locked/Released at 06/19/2016 1:33 by Dave Lam R.N.
--- NOTE | 2016-06-19 01:25 | ED NURSING NOTES ---
Clinical Report - Nurses [facility] [address] [place] [place] [address] 06/18/2016 23:23 Patient: LEONIDAS KIM TRIAGE Triage time 23:33. Acuity: LEVEL 3. Chief Complaint: ABDOMINAL PAIN. Alert. KALI COMA SCORE: Kali Coma Scale: 15- eyes open spontaneously (4); best verbal response- oriented x 4 (5); best motor response- obeys commands (6). --23:37 Dave Lam R.N. 23:30 06/18/16. BP: 130/78. HR: 96. RR: 24 (regular and unlabored). O2 saturation: 100%. Temp: 98.1 F (oral). Pain level now: 09/15. --23:37 Dave Lam R.N. Weight: 68 kg stated. Height/Length: 61 inches Per Patient. BMI: 28.3. --23:32 Dave Lam R.N. Medications Cyclobenzaprine HCl Oral 10 mg, daily as needed. Lantus Subcutaneous 80 Units, at bedtime. MetFORMIN HCl Oral (Tablet 1000 mg) 1 tablet, 2x a day (500 mg at noon). Novalog sliding scale, before meals. TraZODone HCl Oral 50 mg, at bedtime. --23:30 Dave Lam R.N. Allergies Tramadol.(nausea) (weakness) --23:30 Dave Lam R.N. History Arrived by private vehicle. Historian: patient. Accompanied by friend. This started yesterday. ( pt states that she has lower abdominal pain that radiates to the left.). No nausea, vomiting or diarrhea. SOCIAL HX: Smoker- current status unknown (cigarette). Occasional alcohol use. No drug use. ( denies SI/HI). ABUSE ASSESSMENT: No report of abuse. --23:37 Dave Lam R.N. FALL RISK ASSESSMENT: Fall risk assessment completed. No fall risk identified. NUTRITIONAL RISK ASSESSMENT: The nutritional risk assessment revealed no deficiencies. FUNCTIONAL ASSESSMENT: Functional assessment: no impairments noted. LEARNING NEEDS ASSESSMENT: The learning needs assessment revealed no barriers. SKIN INTEGRITY ASSESSMENT: Skin integrity risk assessment completed. No skin integrity risk identified. --23:37 Dave Lam R.N. PROBLEMS: Nausea. Diarrhea. Dysuria. Sciatica. Lymphadenitis. Back Pain. Lumbar Radiculopathy. Chronic Back Pain. Contact Dermatitis. Pyelonephritis. Vaginitis. Plantar Fasciitis. Bronchitis. Asthma. OB History. Discomfort of . Vulvovaginitis. Upper Extremity Pain. Cervical Strain. Depression. Insomnia. Hypercholesterolemia. Hypertension. Diabetes Mellitus. --23:32 Dave Lam R.N. Ovarian Cyst. --23:41 Dave Lam R.N. ADDITIONAL SURGERIES: Carpal Tunnel Surgery. . --23:32 Dave Lam R.N. Interventions ID band on patient. To treatment room. --23:37 Dave Lam R.N. PHYSICAL ASSESSMENT Ambulatory to room. Patient gowned. GENERAL / NEURO / PSYCH: Alert. Oriented X 4. HEENT: Mucous membranes are pink. RESPIRATORY: Respirations not labored. Breath sounds within normal limits. CVS: Capillary refill less than 2 seconds. GI / : Abdominal tenderness. Normal bowel sounds. ( pt states having intermittent burning when urinating). SKIN: Skin is warm and dry. --23:39 Dave Lam R.N. NURSING PROGRESS NOTES Patient gowned. Head of bed elevated. Reassurance given. Patient ID band checked for patient name and birthdate. Instructions provided to collect clean catch urine and patient verbalized understanding. Clean catch urine collected; sample sent to lab for urinalysis. Call light placed in reach. Side rails up x 1. Bed placed in lowest position. Brakes of bed on. Patient ready for evaluation- chart flagged. Patient waiting for evaluation. --23:37 Dave Lam R.N. 23:40 06/18/2016 Site #1 started via IV in the left antecubital space with an 20g angiocath; one attempt. Blood drawn: rainbow set. Labeled in the presence of the patient and sent to the lab. Saline lock flushed with 10 mL saline (IV started by STORM Elizalde). --23:40 Dave Lam R.N. ( 0010: checked Blood Sugar: 274 mg/dL). --00:14 Ayala Lambert 00:11 06/19/2016 Toradol IVP 30 mg given over 2 minute(s) via site #1. Allergies verified and confirmed 5 rights. IV patency established. IV site checked: no pain, redness, or swelling. IV flushed thoroughly pre- and post-medication administration. IVP given by RN. --00:15 Dave Lam R.N. 00:13 06/19/2016 Started bag #1 1000 mL IV Fluids IV NS (Saline); at 1000 mL/hr over 1 hour(s) via site #1. Allergies verified and confirmed 5 rights. IV patency established. IV site checked: no pain, redness, or swelling. IV flushed thoroughly pre- and post-medication administration. Completed per protocol. --00:15 Dave Lam R.N. 00:16 06/19/16. BP: 124/79. HR: 100 (regular). RR: 20. O2 saturation: 98% on room air. --00:17 Dave Lam R.N. ( patient calm and resting in bed). --00:17 Dave Lam R.N. 00:56 06/19/2016 Demerol (Meperidine HCl) IVP 25 mg given over 2 minute(s) via site #1. Allergies verified and confirmed 5 rights. IV patency established. IV site checked: no pain, redness, or swelling. IV flushed thoroughly pre- and post-medication administration. IVP given by RN. --01:01 Dave Lam R.N. 01:07 06/19/2016 Insulin Reg Subcutaneous 8 unit given. Given in the left upper arm. Allergies verified and confirmed 5 rights. --01:12 Dave Lam R.N. 01:17 06/19/2016 IV Fluids IV NS Discontinued: completed. Total amount infused: 1000 mL. IV patency established. IV site checked: no pain, redness, or swelling. IV flushed thoroughly. --01:33 Dave Lam R.N. DISPOSITION / DISCHARGE 01:31 06/19/2016 Site #1 removed upon discharge. Manual pressure and bandage applied. --01:31 Dave Lam R.N. Departure time: 01:30. Condition at departure: stable. No learning barriers present. Discharge instructions provided and reviewed with project specialist and the patient. Reviewed warnings. Reviewed medication(s) side effects, precautions, dosing and course information. Prescription(s) given to the patient. Treatments reviewed. Reviewed referrals for followup. Patient and project specialist verbalized understanding. Written instructions provided in American. The patient was discharged home and accompanied by project specialist. She left the Emergency Department ambulatory and via private vehicle. Forensic Accountant driving. ( Patient awake and alert). --01:32 Dave Lam R.N. 01:30 06/19/16. BP: 119/76. HR: 91. RR: 20 (regular and unlabored). O2 saturation: 98% on room air. Pain level now: 07/16. --01:32 Dave Lam R.N. Locked/Released at 06/19/2016 1:33 by Dave Lam R.N.
--- NOTE | 2016-06-19 01:38 | ED MED RECONCILIATION SUMMARY ---
Patient: LEONIDAS KIM Medication Reconciliation Report [facility] VisitID: [id number] [address] [place] [address] 35y, F Registration Date/Time: 06/18/2016 Weight: 68.0 kg Height/Length: 61 in. BMI: 28.3 ALLERGIES: Tramadol The patient's Home Medications are listed below: CONTINUE TAKING THE FOLLOWING MEDICATIONS: Cyclobenzaprine HCl Oral 10 mg, daily Lantus Subcutaneous 80 Units, at bedtime MetFORMIN HCl Oral (1000 mg) 1 tablet, 2x a day, 500 mg at noon Novalog sliding scale, before meals TraZODone HCl Oral 50 mg, at bedtime The source(s) of the original Home Medication information: Not obtained. The following Medications were given to the patient in the Emergency Department: Toradol [IVP] IVP 30 mg, administered: 06/19/2016 12:11:00 AM IV NS IV Fluids bolus 0, then 1000 mL/hr, administered: 06/19/2016 12:13:00 AM Demerol [IVP] IVP 25 mg, administered: 06/19/2016 12:56:00 AM Insulin Reg [Subcutaneous] Subcutaneous 8 unit, administered: 06/19/2016 1:07:00 AM The following Medications were prescribed to the patient: Colace 100 mg capsules (available over the counter): take 1 capsule orally, once daily and for 14 days. No refill. Substitution is permissible. -- Yvan Carlson Dr. Miralax: take 1 package mixed in 8 ounces water every day as needed for constipation. Dispense one (1) twelve pack. No refills. Substitution is permissible. -- Yvan Carlson Dr.
--- NOTE | 2016-06-19 01:38 | ED DISCHARGE INSTRUCTIONS ---
Patient: LEONIDAS KIM General Instructions [facility] VisitID: [id number] [place] [address] 35y, F Registration Date/Time: 06/18/2016 Constipation INSTRUCTIONS Your Current Medications: CONTINUE TAKING THE FOLLOWING MEDICATIONS: Cyclobenzaprine HCl Oral : 10 mg daily, prn. Lantus Subcutaneous : 80 Units at bedtime. MetFORMIN HCl Oral : Tablet 1000 mg, 1 tablet 2x a day, 500 mg at noon. Novalog* : sliding scale before meals. TraZODone HCl Oral : 50 mg at bedtime. Prescription Medications: Miralax: take 1 package mixed in 8 ounces water every day as needed for constipation. Dispense one (1) twelve pack. No refills. Substitution is permissible. OTC Medications: Colace 100 mg capsules (available over the counter): take 1 capsule orally, once daily and for 14 days. No refill. Substitution is permissible. Follow-up: Follow up with your doctor in about two days. Call for an appointment. Screening today revealed the patient's blood pressure to be in the pre-hypertensive range. The patient should follow up with a primary care provider for blood pressure management. ADDITIONAL INFORMATION Constipation (Adult) Constipation is bowel movements that are less frequent than usual. Stools often become very hard and difficult to pass. This may lead to abdominal pain and bloating. It may also cause painful bowel movements. Constipation may be due to a diet thats low in fiber. Some medications, especially pain medications, can also cause it. Constipation may be treated with enemas, suppositories, laxatives or stool softeners. Your doctor will advise you which will work best for you. Follow the advice below to help avoid this problem in the future. Home Care Medication: Take any medicines as directed. Some laxatives are safe only for occasional use. Others can be taken on a regular basis. Talk to your doctor or pharmacist if you have questions. General Care: Prescription pain medications can cause constipation. If you are prescribed pain medications, ask the doctor whether you should also take a stool softener. A diet high in fiber with plenty of fluids helps to maintain regular, soft bowel movements. The following foods are good sources of dietary fiber: Cereals and breads: Whole grain cereal with bran, oatmeal, rolled oats, whole grain breads Fruits: All fruits (fresh and dried), raisins, prunes, apricots, berries, figs Vegetables: Any fresh vegetables, especially peas, broccoli, brussels sprouts, winter squash, green beans, cauliflower, melendez beans, carrots Other: Popcorn, brown rice Drink plenty of water when you increase the amount of fiber you eat. Follow Up with your doctor or return to this facility if symptoms do not improve in the next few days. You may require further tests or a referral to a specialist. Get Prompt Medical Attention if any of the following occur: Fever over 100.4F (38C) Failure to resume normal bowel movements Increasing abdominal or back pain Nausea or vomiting Abdominal swelling Blood in the stool Weakness, dizziness or fainting Unexpected vaginal bleeding Docusate Sodium Oral tablet What is this medicine? DOCUSATE (doc CUE sayt) is stool softener. It helps prevent constipation and straining or discomfort associated with hard or dry stools. How should I use this medicine? Take this medicine by mouth with a glass of water. Follow the directions on the label. Take your doses at regular intervals. Do not take your medicine more often than directed. Talk to your sr. vendor management associate regarding the use of this medicine in children. While this medicine may be prescribed for children as young as 2 years for selected conditions, precautions do apply. What side effects may I notice from receiving this medicine? Side effects that you should report to your doctor or health patient care director as soon as possible: allergic reactions like skin rash, itching or hives, swelling of the face, lips, or tongue Side effects that usually do not require medical attention (report to your doctor or health patient care director if they continue or are bothersome): diarrhea stomach cramps throat irritation What may interact with this medicine? mineral oil What if I miss a dose? If you miss a dose, take it as soon as you can. If it is almost time for your next dose, take only that dose. Do not take double or extra doses. Where should I keep my medicine? Keep out of the reach of children. Store at room temperature between 15 and 30 degrees C (59 and 86 degrees F). Throw away any unused medicine after the expiration date. What should I tell my health care provider before I take this medicine? They need to know if you have any of these conditions: nausea or vomiting severe constipation stomach pain sudden change in bowel habit lasting more than 2 weeks an unusual or allergic reaction to docusate, other medicines, foods, dyes, or preservatives or trying to get breast-feeding What should I watch for while using this medicine? Do not use for more than one week without advice from your doctor or health patient care director. If your constipation returns, check with your doctor or health patient care director. Drink plenty of water while taking this medicine. Drinking water helps decrease constipation. Stop using this medicine and contact your doctor or health patient care director if you experience any rectal bleeding or do not have a bowel movement after use. These could be signs of a more serious condition. You have been given the following additional information: Constipation (Adult) Docusate Sodium Oral tablet (Electronically signed by Yvan Carlson Dr. 06/19/2016 1:25)
--- NOTE | 2016-06-19 01:38 | ED MED RECONCILIATION SUMMARY ---
Patient: LEONIDAS KIM Medication Reconciliation Report [facility] VisitID: [id number] [address] [place] [address] 35y, F Registration Date/Time: 06/18/2016 Weight: 68.0 kg Height/Length: 61 in. BMI: 28.3 ALLERGIES: Tramadol The patient's Home Medications are listed below: CONTINUE TAKING THE FOLLOWING MEDICATIONS: Cyclobenzaprine HCl Oral 10 mg, daily Lantus Subcutaneous 80 Units, at bedtime MetFORMIN HCl Oral (1000 mg) 1 tablet, 2x a day, 500 mg at noon Novalog sliding scale, before meals TraZODone HCl Oral 50 mg, at bedtime The source(s) of the original Home Medication information: Not obtained. The following Medications were given to the patient in the Emergency Department: Toradol [IVP] IVP 30 mg, administered: 06/19/2016 12:11:00 AM IV NS IV Fluids bolus 0, then 1000 mL/hr, administered: 06/19/2016 12:13:00 AM Demerol [IVP] IVP 25 mg, administered: 06/19/2016 12:56:00 AM Insulin Reg [Subcutaneous] Subcutaneous 8 unit, administered: 06/19/2016 1:07:00 AM The following Medications were prescribed to the patient: Colace 100 mg capsules (available over the counter): take 1 capsule orally, once daily and for 14 days. No refill. Substitution is permissible. -- Yvan Carlson Dr. Miralax: take 1 package mixed in 8 ounces water every day as needed for constipation. Dispense one (1) twelve pack. No refills. Substitution is permissible. -- Yvan Carlson Dr.
--- NOTE | 2016-06-19 01:38 | ED DISCHARGE INSTRUCTIONS ---
Patient: LEONIDAS KIM General Instructions [facility] VisitID: [id number] [place] [address] 35y, F Registration Date/Time: 06/18/2016 Constipation INSTRUCTIONS Your Current Medications: CONTINUE TAKING THE FOLLOWING MEDICATIONS: Cyclobenzaprine HCl Oral : 10 mg daily, prn. Lantus Subcutaneous : 80 Units at bedtime. MetFORMIN HCl Oral : Tablet 1000 mg, 1 tablet 2x a day, 500 mg at noon. Novalog* : sliding scale before meals. TraZODone HCl Oral : 50 mg at bedtime. Prescription Medications: Miralax: take 1 package mixed in 8 ounces water every day as needed for constipation. Dispense one (1) twelve pack. No refills. Substitution is permissible. OTC Medications: Colace 100 mg capsules (available over the counter): take 1 capsule orally, once daily and for 14 days. No refill. Substitution is permissible. Follow-up: Follow up with your doctor in about two days. Call for an appointment. Screening today revealed the patient's blood pressure to be in the pre-hypertensive range. The patient should follow up with a primary care provider for blood pressure management. ADDITIONAL INFORMATION Constipation (Adult) Constipation is bowel movements that are less frequent than usual. Stools often become very hard and difficult to pass. This may lead to abdominal pain and bloating. It may also cause painful bowel movements. Constipation may be due to a diet thats low in fiber. Some medications, especially pain medications, can also cause it. Constipation may be treated with enemas, suppositories, laxatives or stool softeners. Your doctor will advise you which will work best for you. Follow the advice below to help avoid this problem in the future. Home Care Medication: Take any medicines as directed. Some laxatives are safe only for occasional use. Others can be taken on a regular basis. Talk to your doctor or pharmacist if you have questions. General Care: Prescription pain medications can cause constipation. If you are prescribed pain medications, ask the doctor whether you should also take a stool softener. A diet high in fiber with plenty of fluids helps to maintain regular, soft bowel movements. The following foods are good sources of dietary fiber: Cereals and breads: Whole grain cereal with bran, oatmeal, rolled oats, whole grain breads Fruits: All fruits (fresh and dried), raisins, prunes, apricots, berries, figs Vegetables: Any fresh vegetables, especially peas, broccoli, brussels sprouts, winter squash, green beans, cauliflower, melendez beans, carrots Other: Popcorn, brown rice Drink plenty of water when you increase the amount of fiber you eat. Follow Up with your doctor or return to this facility if symptoms do not improve in the next few days. You may require further tests or a referral to a specialist. Get Prompt Medical Attention if any of the following occur: Fever over 100.4F (38C) Failure to resume normal bowel movements Increasing abdominal or back pain Nausea or vomiting Abdominal swelling Blood in the stool Weakness, dizziness or fainting Unexpected vaginal bleeding Docusate Sodium Oral tablet What is this medicine? DOCUSATE (doc CUE sayt) is stool softener. It helps prevent constipation and straining or discomfort associated with hard or dry stools. How should I use this medicine? Take this medicine by mouth with a glass of water. Follow the directions on the label. Take your doses at regular intervals. Do not take your medicine more often than directed. Talk to your crm marketing executive regarding the use of this medicine in children. While this medicine may be prescribed for children as young as 2 years for selected conditions, precautions do apply. What side effects may I notice from receiving this medicine? Side effects that you should report to your doctor or health managed care director as soon as possible: allergic reactions like skin rash, itching or hives, swelling of the face, lips, or tongue Side effects that usually do not require medical attention (report to your doctor or health managed care director if they continue or are bothersome): diarrhea stomach cramps throat irritation What may interact with this medicine? mineral oil What if I miss a dose? If you miss a dose, take it as soon as you can. If it is almost time for your next dose, take only that dose. Do not take double or extra doses. Where should I keep my medicine? Keep out of the reach of children. Store at room temperature between 15 and 30 degrees C (59 and 86 degrees F). Throw away any unused medicine after the expiration date. What should I tell my health care provider before I take this medicine? They need to know if you have any of these conditions: nausea or vomiting severe constipation stomach pain sudden change in bowel habit lasting more than 2 weeks an unusual or allergic reaction to docusate, other medicines, foods, dyes, or preservatives or trying to get breast-feeding What should I watch for while using this medicine? Do not use for more than one week without advice from your doctor or health managed care director. If your constipation returns, check with your doctor or health managed care director. Drink plenty of water while taking this medicine. Drinking water helps decrease constipation. Stop using this medicine and contact your doctor or health managed care director if you experience any rectal bleeding or do not have a bowel movement after use. These could be signs of a more serious condition. You have been given the following additional information: Constipation (Adult) Docusate Sodium Oral tablet (Electronically signed by Yvan Carlson Dr. 06/19/2016 1:25)
--- NOTE | 2016-06-19 01:38 | ED MAR SUMMARY ---
..... Medication Administration Record [facility] [address] [place] [address] Patient: LEONIDAS KIM Visit ID: [id number] 35y, F Weight: 68.0 kg Height/Length: 61 in BMI: 28.3 ALLERGIES: Tramadol Given 00:11 06/19/2016 Dave Lam R.N. Medication Administered: TORADOL [IVP], Dose: 30 mg IVP over 2 minute(s), Site: #1 left AC. Medication Ordered: Toradol IV 30 mg (NOW). Start 00:13 06/19/2016 Dave Lam R.N., Stop 01:17 06/19/2016 Dave Lam R.N. Medication Administered: IV NS (SALINE), Dose: IV Fluids over 1 hour(s), Rate: 1000 mL/hr, Dispensed: 1000 mL bag, Site: #1 left AC. Medication Ordered: IV NS : initial bolus none -, then 1000 mL/hr for X1 (NOW). Given 00:56 06/19/2016 Dave Lam R.N. Medication Administered: DEMEROL [IVP] (MEPERIDINE HCL), Dose: 25 mg IVP over 2 minute(s), Site: #1 left AC. Medication Ordered: Demerol IV 25 mg (HIGH ALERT MEDICATION, NOW). Given 01:07 06/19/2016 Dave Lam R.N. Medication Administered: INSULIN REG [SUBCUTANEOUS], Dose: 8 unit Subcutaneous. Medication Ordered: Insulin Reg Subcut 8 units (HIGH ALERT MEDICATION, NOW).
--- NOTE | 2016-06-19 01:38 | ED MAR SUMMARY ---
..... Medication Administration Record [facility] [address] [place] [address] Patient: LEONIDAS KIM Visit ID: [id number] 35y, F Weight: 68.0 kg Height/Length: 61 in BMI: 28.3 ALLERGIES: Tramadol Given 00:11 06/19/2016 Dave Lam R.N. Medication Administered: TORADOL [IVP], Dose: 30 mg IVP over 2 minute(s), Site: #1 left AC. Medication Ordered: Toradol IV 30 mg (NOW). Start 00:13 06/19/2016 Dave Lam R.N., Stop 01:17 06/19/2016 Dave Lam R.N. Medication Administered: IV NS (SALINE), Dose: IV Fluids over 1 hour(s), Rate: 1000 mL/hr, Dispensed: 1000 mL bag, Site: #1 left AC. Medication Ordered: IV NS : initial bolus none -, then 1000 mL/hr for X1 (NOW). Given 00:56 06/19/2016 Dave Lam R.N. Medication Administered: DEMEROL [IVP] (MEPERIDINE HCL), Dose: 25 mg IVP over 2 minute(s), Site: #1 left AC. Medication Ordered: Demerol IV 25 mg (HIGH ALERT MEDICATION, NOW). Given 01:07 06/19/2016 Dave Lam R.N. Medication Administered: INSULIN REG [SUBCUTANEOUS], Dose: 8 unit Subcutaneous. Medication Ordered: Insulin Reg Subcut 8 units (HIGH ALERT MEDICATION, NOW).
--- NOTE | 2016-06-21 13:51 | DIAGNOSTIC IMAGING REPORT ---
PROCEDURE: XR LUMBAR SPINE 2 OR 3 VIEWS INDICATION: LOWER BACK PAIN TECHNIQUE: Three views. COMPARISON: Comparison made radiographs of the lumbar spine on 04/06/2016, MRI lumbar spine (01/22/2016), and CT abdomen and pelvis (06/01/2015). 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 This is associated with mild disc space narrowing and degenerative changes at L5-S1. Minimal levoscoliosis. Osseous structures and disc spaces are otherwise normal. No evidence of an acute process or fracture. Mild to moderate stool throughout the colon. IMPRESSION: 1. Minimal levoscoliosis. 2. 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 3. Associated mild degenerative changes at the L5-S1 disc level. 4. Mild to moderate stool throughout the colon. Consider obstipation. 5. Findings discussed with Dr. Yvan Carlson. 6. Findings called to the patient's primary care provider, Gagan Araya PAC.
== END 2016-06-19 01:30 | disposition home or self-care (01) ==
LOC: ED SRH 23:21
DX: K59.00 Constipation, unspecified (principal); E78.00 Pure hypercholesterolemia, unspecified; E11.9 Type 2 diabetes mellitus without complications; I10 Essential (primary) hypertension; F17.200 Nicotine dependence, unspecified, uncomplicated; Z79.84 Long term (current) use of oral hypoglycemic drugs; Z79.899 Other long term (current) drug therapy; Z88.5 Allergy status to narcotic agent; Z79.4 Long term (current) use of insulin
CPT/HCPCS: 90004; 90098; 90100; 90301; 92235; 92530; 93070; 95059

== ENCOUNTER 2016-07-12 01:52 | Emergency (ER) | payer OTHER ==
--- NOTE | 2016-07-12 05:06 | ED CLINICAL REPORT ---
Clinical Report - Physicians/Mid Levels [facility] [address] [place] [address] 07/12/2016 1:52 Patient: LEONIDAS KIM Time Seen: 02:10; initial patient contact. Arrived- By private vehicle. Historian- patient. CPT: ER phys charges level 4 (#[id number]). HISTORY OF PRESENT ILLNESS Chief Complaint: CHRONIC BACK PAIN. It is described as being moderate in degree and in the area of the lower lumbar spine. The quality is noted to be aching. No radiation. Modifying factors- worsened by bending over and lifting. Not relieved by anything. Onset- several months ago and it is still present. It was gradual in onset. No bladder dysfunction, bowel dysfunction, sensory loss or motor loss. Patient denies an injury but injury to the head or neck. Similar symptoms previously: Many times. Recent medical care: Not recently seen/assessed. REVIEW OF SYSTEMS No difficulty with urination, abdominal pain, nausea or vomiting. All systems otherwise negative, except as recorded above. PAST HISTORY Ovarian Cyst. Dysuria. Sciatica. Lymphadenitis. Lumbar Radiculopathy. Pyelonephritis. Bronchitis. Asthma. Pelvic Pain. Depression. Hypertension. Hypercholesterolemia. Diabetes Mellitus. ADDITIONAL SURGERIES: Carpal Tunnel Surgery. . SOCIAL HISTORY Current some days smoker. No alcohol use or drug use. ADDITIONAL NOTES The nursing notes have been reviewed. PHYSICAL EXAM Vital Signs: 07/12/2016 01:57 BP: 119/77. HR: 98. RR: 16. O2 saturation: 99%. Temp: 97.7 F. Anvarrete-Hampton pain scale: 6/10. Have been reviewed as normal. Appearance: Alert. No acute distress. HEENT: Normal external inspection. Neck: Normal inspection. Neck nontender. Painless ROM. Back: Mild muscle spasm of the right and left posterior back. Moderate soft tissue tenderness in the right mid and lower and left mid and lower lumbar area. No vertebral point tenderness. Skin: Skin warm and dry. Normal skin color. Extremities: Extremities exhibit normal ROM. Extremities nontender. Neuro: No motor deficit. No sensory deficit. Straight leg raising: negative on the right and negative on the left. PROGRESS AND PROCEDURES Disposition: Discharged home in good condition. Condition: good. CLINICAL IMPRESSION Chronic nontraumatic lumbar back pain associated with muscle strain. INSTRUCTIONS Your Current Medications: CONTINUE TAKING THE FOLLOWING MEDICATIONS: Albuterol Sulfate Inhalation. Lantus Subcutaneous : 80 Units at bedtime. MetFORMIN HCl Oral : Tablet 1000 mg, 1 tablet 2x a day, 500 mg at noon. Novalog* : sliding scale before meals. TraZODone HCl Oral : 50 mg at bedtime. Prescription Medications: Skelaxin 800 mg: Take 1 orally every 6 hours as needed for muscle spasm or pain. Dispense thirty (30). No refills. Substitution is permissible. Follow-up: Follow up with your doctor in about two days. Call for an appointment. Screening today revealed the patient's blood pressure to be in the normal range. (Electronically signed by Yvan Carlson Dr. 07/12/2016 10:12)
--- NOTE | 2016-07-12 05:06 | ED CLINICAL REPORT ---
Clinical Report - Physicians/Mid Levels [facility] [address] [place] [address] 07/12/2016 1:52 Patient: LEONIDAS KIM Time Seen: 02:10; initial patient contact. Arrived- By private vehicle. Historian- patient. CPT: ER phys charges level 4 (#[id number]). HISTORY OF PRESENT ILLNESS Chief Complaint: CHRONIC BACK PAIN. It is described as being moderate in degree and in the area of the lower lumbar spine. The quality is noted to be aching. No radiation. Modifying factors- worsened by bending over and lifting. Not relieved by anything. Onset- several months ago and it is still present. It was gradual in onset. No bladder dysfunction, bowel dysfunction, sensory loss or motor loss. Patient denies an injury but injury to the head or neck. Similar symptoms previously: Many times. Recent medical care: Not recently seen/assessed. REVIEW OF SYSTEMS No difficulty with urination, abdominal pain, nausea or vomiting. All systems otherwise negative, except as recorded above. PAST HISTORY Ovarian Cyst. Dysuria. Sciatica. Lymphadenitis. Lumbar Radiculopathy. Pyelonephritis. Bronchitis. Asthma. Pelvic Pain. Depression. Hypertension. Hypercholesterolemia. Diabetes Mellitus. ADDITIONAL SURGERIES: Carpal Tunnel Surgery. . SOCIAL HISTORY Current some days smoker. No alcohol use or drug use. ADDITIONAL NOTES The nursing notes have been reviewed. PHYSICAL EXAM Vital Signs: 07/12/2016 01:57 BP: 119/77. HR: 98. RR: 16. O2 saturation: 99%. Temp: 97.7 F. Navarrete-Hampton pain scale: 6/10. Have been reviewed as normal. Appearance: Alert. No acute distress. HEENT: Normal external inspection. Neck: Normal inspection. Neck nontender. Painless ROM. Back: Mild muscle spasm of the right and left posterior back. Moderate soft tissue tenderness in the right mid and lower and left mid and lower lumbar area. No vertebral point tenderness. Skin: Skin warm and dry. Normal skin color. Extremities: Extremities exhibit normal ROM. Extremities nontender. Neuro: No motor deficit. No sensory deficit. Straight leg raising: negative on the right and negative on the left. PROGRESS AND PROCEDURES Disposition: Discharged home in good condition. Condition: good. CLINICAL IMPRESSION Chronic nontraumatic lumbar back pain associated with muscle strain. INSTRUCTIONS Your Current Medications: CONTINUE TAKING THE FOLLOWING MEDICATIONS: Albuterol Sulfate Inhalation. Lantus Subcutaneous : 80 Units at bedtime. MetFORMIN HCl Oral : Tablet 1000 mg, 1 tablet 2x a day, 500 mg at noon. Novalog* : sliding scale before meals. TraZODone HCl Oral : 50 mg at bedtime. Prescription Medications: Skelaxin 800 mg: Take 1 orally every 6 hours as needed for muscle spasm or pain. Dispense thirty (30). No refills. Substitution is permissible. Follow-up: Follow up with your doctor in about two days. Call for an appointment. Screening today revealed the patient's blood pressure to be in the normal range. (Electronically signed by Yvan Carlson Dr. 07/12/2016 10:12)
--- NOTE | 2016-07-12 05:07 | ED NURSING NOTES ---
Clinical Report - Nurses [facility] [address] [place] [address] 07/12/2016 1:52 Patient: LEONIDAS KIM TRIAGE Triage time 01:58. Chief Complaint: BACK PAIN and (pt reports pain is in lumbar area and goes up to mid back and radiates around to front.). Alert. No acute distress. --02:05 Ramila Chandler R.N. 01:57 07/12/16. BP: 119/77. HR: 98. RR: 16. O2 saturation: 99%. Temp: 97.7 F (oral). Navarrete-Hampton pain scale: 6/10. --02:05 Ramila Chandler R.N. Weight: 69.3 kg stated. Height/Length: 61.5 inches Per Patient. BMI: 28.4. --02:04 Ramila Chandler R.N. Medications Lantus Subcutaneous 80 Units, at bedtime. MetFORMIN HCl Oral (Tablet 1000 mg) 1 tablet, 2x a day (500 mg at noon). Novalog sliding scale, before meals. TraZODone HCl Oral 50 mg, at bedtime. --02:03 Ramila Chandler R.N. Albuterol Sulfate Inhalation. --02:03 Ramila Chandler R.N. Allergies Tramadol.(nausea) (weakness) --02:03 Ramila Chandler R.N. History Arrived by private vehicle. Historian: patient. Accompanied by family. Primary physician (Quiana). ( pt reports pain has been present for years but has not been this bad until this past week.). 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 Treatment MANAGER POLICY: None. PAST MEDICAL HX: Tetanus status: up-to-date. Immunizations: up-to-date. Last normal menstrual period now. SOCIAL HX: Current some days light tobacco smoker (cigarette). Occasional alcohol use. No drug use. NUTRITIONAL RISK ASSESSMENT: The nutritional risk assessment revealed no deficiencies. FUNCTIONAL ASSESSMENT: Functional assessment: no impairments noted. --02:05 Ramila Chandler R.N. PROBLEMS: Ovarian Cyst. Dysuria. Sciatica. Lymphadenitis. Lumbar Radiculopathy. Pyelonephritis. Bronchitis. Asthma. Pelvic Pain. Depression. Hypertension. Hypercholesterolemia. Diabetes Mellitus. --02:04 Ramila Chandler R.N. ADDITIONAL SURGERIES: Carpal Tunnel Surgery. . --02:04 Ramila Chandler R.N. Interventions ID band on patient. To treatment room. --02:05 Ramila Chandler R.N. PHYSICAL ASSESSMENT Ambulatory to room. Patient gowned. GENERAL / NEURO / PSYCH: Alert. Oriented X 4. Appears anxious. RESPIRATORY: Respirations not labored. CVS: Capillary refill less than 2 seconds. --02:05 Ramila Chandler R.N. NURSING PROGRESS NOTES Head of bed elevated. Two patient identifiers checked. Call light placed in reach. Side rails up x 1. Bed placed in lowest position. Brakes of bed on. --02:06 Ramila Chandler R.N. Patient ready for evaluation- chart flagged. --02:06 Ramila Chandler R.N. 02:00 late entry -. Patient ID band checked for patient name and birthdate: patient confirmed. Instructions provided to collect clean catch urine and patient verbalized understanding. Clean catch urine collected with return of red-colored urine; sample sent to lab. Specimen labeled in the presence of the patient. --03:38 Ramila Chandler R.N. 04:18 07/12/2016 Toradol (Ketorolac Tromethamine) IM 60 mg given. Given in the right ventral gluteus. Allergies verified and confirmed 5 rights. --04:18 Ramila Chandler R.N. DISPOSITION / DISCHARGE 05:19 07/12/16. Departure time: 05:Jul 12 2016. Condition at departure: improved. No learning barriers present. Discharge instructions provided and reviewed with the patient. Reviewed medication(s) side effects, precautions, dosing and course information. Prescription(s) given to the patient. Patient verbalized understanding. Written instructions provided in Tajik. The patient was discharged by the physician. She was discharged home and accompanied by blending kettle tender. She left the Emergency Department ambulatory and via private vehicle. Uke Driver driving. --05:19 Nadya Cornelius R.N. 05:10 07/12/16. BP: 112/72. HR: 85. RR: 16. O2 saturation: 100% on room air. Temp: 98.2 F (oral). Pain level now: 07/16. --05:19 Nadya Cornelius R.N. Locked/Released at 07/12/2016 5:37 by Ramila Chandler R.N.
--- NOTE | 2016-07-12 05:07 | ED ORDER SUMMARY ---
..... Patient: LEONIDAS KIM OrderSheet [facility] VisitID: [id number] [address] [place] [address] 35y, F Registration Date/Time: 07/12/2016 ORDER SHEET Weight: 69.3 kg (stated) Allergies: Tramadol GENERAL ORDERS: UA-Culture if indicated Urgent (03:37 07/12/2016 RCollier R.N. per protocol) (3:59 RKaruga) Urine Urgent (03:37 07/12/2016 RCollier R.N. per protocol) (3:59 RKaruga) MEDICATION ORDERS: Toradol IM 60 mg (NOW) (04:13 07/12/2016 Ceasar Diaz) (Ack 4:13 RCollier R.N.) (4:18 RCollier R.N.) IV FLUIDS: ORDER SHEET NOTES: [Electronically signed by Ramila Chandler R.N. (05:37 07/12/2016)] [Electronically signed by Yvan Carlson Dr. (10:12 07/12/2016)] [Electronically locked/signed by Ramila Chandler R.N. (05:37 07/12/2016)]
--- NOTE | 2016-07-12 05:07 | ED ORDER SUMMARY ---
..... Patient: LEONIDAS KIM OrderSheet [facility] VisitID: [id number] [address] [place] [address] 35y, F Registration Date/Time: 07/12/2016 ORDER SHEET Weight: 69.3 kg (stated) Allergies: Tramadol GENERAL ORDERS: UA-Culture if indicated Urgent (03:37 07/12/2016 RCollier R.N. per protocol) (3:59 RKaruga) Urine Urgent (03:37 07/12/2016 RCollier R.N. per protocol) (3:59 RKaruga) MEDICATION ORDERS: Toradol IM 60 mg (NOW) (04:13 07/12/2016 Ceasar Diaz) (Ack 4:13 RCollier R.N.) (4:18 RCollier R.N.) IV FLUIDS: ORDER SHEET NOTES: [Electronically signed by Ramila Chandler R.N. (05:37 07/12/2016)] [Electronically signed by Yvan Carlson Dr. (10:12 07/12/2016)] [Electronically locked/signed by Ramila Chandler R.N. (05:37 07/12/2016)]
--- NOTE | 2016-07-12 05:07 | ED NURSING NOTES ---
Clinical Report - Nurses [facility] [address] [place] [address] 07/12/2016 1:52 Patient: LEONIDAS KIM TRIAGE Triage time 01:58. Chief Complaint: BACK PAIN and (pt reports pain is in lumbar area and goes up to mid back and radiates around to front.). Alert. No acute distress. --02:05 Ramila Chandler R.N. 01:57 07/12/16. BP: 119/77. HR: 98. RR: 16. O2 saturation: 99%. Temp: 97.7 F (oral). Navarrete-Hampton pain scale: 6/10. --02:05 Ramila Chandler R.N. Weight: 69.3 kg stated. Height/Length: 61.5 inches Per Patient. BMI: 28.4. --02:04 Ramila Chandler R.N. Medications Lantus Subcutaneous 80 Units, at bedtime. MetFORMIN HCl Oral (Tablet 1000 mg) 1 tablet, 2x a day (500 mg at noon). Novalog sliding scale, before meals. TraZODone HCl Oral 50 mg, at bedtime. --02:03 Ramila Chandler R.N. Albuterol Sulfate Inhalation. --02:03 Ramila Chandler R.N. Allergies Tramadol.(nausea) (weakness) --02:03 Ramila Chandler R.N. History Arrived by private vehicle. Historian: patient. Accompanied by family. Primary physician (Quiana). ( pt reports pain has been present for years but has not been this bad until this past week.). 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 Treatment C PYTHON DEVELOPER: None. PAST MEDICAL HX: Tetanus status: up-to-date. Immunizations: up-to-date. Last normal menstrual period now. SOCIAL HX: Current some days light tobacco smoker (cigarette). Occasional alcohol use. No drug use. NUTRITIONAL RISK ASSESSMENT: The nutritional risk assessment revealed no deficiencies. FUNCTIONAL ASSESSMENT: Functional assessment: no impairments noted. --02:05 Ramila Chandler R.N. PROBLEMS: Ovarian Cyst. Dysuria. Sciatica. Lymphadenitis. Lumbar Radiculopathy. Pyelonephritis. Bronchitis. Asthma. Pelvic Pain. Depression. Hypertension. Hypercholesterolemia. Diabetes Mellitus. --02:04 Ramila Chandler R.N. ADDITIONAL SURGERIES: Carpal Tunnel Surgery. . --02:04 Ramila Chandler R.N. Interventions ID band on patient. To treatment room. --02:05 Ramila Chandler R.N. PHYSICAL ASSESSMENT Ambulatory to room. Patient gowned. GENERAL / NEURO / PSYCH: Alert. Oriented X 4. Appears anxious. RESPIRATORY: Respirations not labored. CVS: Capillary refill less than 2 seconds. --02:05 Ramila Chandler R.N. NURSING PROGRESS NOTES Head of bed elevated. Two patient identifiers checked. Call light placed in reach. Side rails up x 1. Bed placed in lowest position. Brakes of bed on. --02:06 Ramila Chandler R.N. Patient ready for evaluation- chart flagged. --02:06 Ramila Chandler R.N. 02:00 late entry -. Patient ID band checked for patient name and birthdate: patient confirmed. Instructions provided to collect clean catch urine and patient verbalized understanding. Clean catch urine collected with return of red-colored urine; sample sent to lab. Specimen labeled in the presence of the patient. --03:38 Ramila Chandler R.N. 04:18 07/12/2016 Toradol (Ketorolac Tromethamine) IM 60 mg given. Given in the right ventral gluteus. Allergies verified and confirmed 5 rights. --04:18 Ramila Chandler R.N. DISPOSITION / DISCHARGE 05:19 07/12/16. Departure time: 05:Jul 12 2016. Condition at departure: improved. No learning barriers present. Discharge instructions provided and reviewed with the patient. Reviewed medication(s) side effects, precautions, dosing and course information. Prescription(s) given to the patient. Patient verbalized understanding. Written instructions provided in Malay. The patient was discharged by the physician. She was discharged home and accompanied by printed circuit photographer. She left the Emergency Department ambulatory and via private vehicle. Variety Saw Operator driving. --05:19 Nadya Cornelius R.N. 05:10 07/12/16. BP: 112/72. HR: 85. RR: 16. O2 saturation: 100% on room air. Temp: 98.2 F (oral). Pain level now: 07/16. --05:19 Nadya Cornelius R.N. Locked/Released at 07/12/2016 5:37 by Ramila Chandler R.N.
--- NOTE | 2016-07-12 10:13 | ED MED RECONCILIATION SUMMARY ---
Patient: LEONIDAS KIM Medication Reconciliation Report [facility] VisitID: [id number] [address] [place] [address] 35y, F Registration Date/Time: 07/12/2016 Weight: 69.3 kg Height/Length: 60 in. BMI: 28.4 ALLERGIES: Tramadol The patient's Home Medications are listed below: CONTINUE TAKING THE FOLLOWING MEDICATIONS: Albuterol Sulfate Inhalation Lantus Subcutaneous 80 Units, at bedtime MetFORMIN HCl Oral (1000 mg) 1 tablet, 2x a day, 500 mg at noon Novalog sliding scale, before meals TraZODone HCl Oral 50 mg, at bedtime The source(s) of the original Home Medication information: Not obtained. The following Medications were given to the patient in the Emergency Department: Toradol [IM] IM 60 mg, administered: 07/12/2016 4:18:00 AM The following Medications were prescribed to the patient: Skelaxin 800 mg: Take 1 orally every 6 hours as needed for muscle spasm or pain. Dispense thirty (30). No refills. Substitution is permissible. -- Yvan Carlson Dr.
--- NOTE | 2016-07-12 10:13 | ED DISCHARGE INSTRUCTIONS ---
Patient: LEONIDAS KIM General Instructions [facility] VisitID: [id number] [place] [address] 35y, F Registration Date/Time: 07/12/2016 Chronic nontraumatic lumbar back pain associated with muscle strain. INSTRUCTIONS Your Current Medications: CONTINUE TAKING THE FOLLOWING MEDICATIONS: Albuterol Sulfate Inhalation. Lantus Subcutaneous : 80 Units at bedtime. MetFORMIN HCl Oral : Tablet 1000 mg, 1 tablet 2x a day, 500 mg at noon. Novalog* : sliding scale before meals. TraZODone HCl Oral : 50 mg at bedtime. Prescription Medications: Skelaxin 800 mg: Take 1 orally every 6 hours as needed for muscle spasm or pain. Dispense thirty (30). No refills. Substitution is permissible. Follow-up: Follow up with your doctor in about two days. Call for an appointment. Screening today revealed the patient's blood pressure to be in the normal range. ADDITIONAL INFORMATION Back Pain [Acute Or Chronic] Back pain is usually caused by an injury to the muscles or ligaments of the spine. Sometimes the disks that separate each bone in the spine may bulge and cause pain by pressing on a nearby nerve. Back pain may also appear after a sudden twisting/bending force (such as in a car accident), after a simple awkward movement, or lifting something heavy with poor body positioning. In either case, muscle spasm is often present and adds to the pain. Acute back pain usually gets better in one to two weeks. Back pain related to disk disease, arthritis in the spinal joints or spinal stenosis (narrowing of the spinal canal) can become chronic and last for months or years. Unless you had a physical injury (for example, a car accident or fall) X-rays are usually not ordered for the initial evaluation of back pain. If pain continues and does not respond to medical treatment, x-rays and other tests may be performed at a later time. Home Care: You may need to stay in bed the first few days. But, as soon as possible, begin sitting or walking to avoid problems with prolonged bed rest (muscle weakness, worsening back stiffness and pain, blood clots in the legs). When in bed, try to find a position of comfort. A firm mattress is best. Try lying flat on your back with pillows under your knees. You can also try lying on your side with your knees bent up towards your chest and a pillow between your knees. Avoid prolonged sitting. This puts more stress on the lower back than standing or walking. During the first two days after injury, apply an ICE PACK to the painful area for 20 minutes every 2-4 hours. This will reduce swelling and pain. HEAT (hot shower, hot bath or heating pad) works well for muscle spasm. You can start with ice, then switch to heat after two days. Some patients feel best alternating ice and heat treatments. Use the one method that feels the best to you. You may use acetaminophen (Tylenol) or ibuprofen (Motrin, Advil) to control pain, unless another pain medicine was prescribed. [NOTE: If you have chronic liver or kidney disease or ever had a stomach ulcer or GI bleeding, talk with your doctor before using these medicines.] Be aware of safe lifting methods and do not lift anything over 15 pounds until all the pain is gone. Follow Up with your doctor or this facility if your symptoms do not start to improve after one week. Physical therapy may be needed. [NOTE: If X-rays were taken, they will be reviewed by a radiologist. You will be notified of any new findings that may affect your care.] Get Prompt Medical Attention if any of the following occur: Pain becomes worse or spreads to your legs Weakness or numbness in one or both legs Loss of bowel or bladder control Numbness in the groin or genital area Metaxalone Oral tablet What is this medicine? METAXALONE (me TAX a lone) is a muscle relaxer. It is used to treat pain and stiffness in muscles caused by strains, sprains, or other injury. How should I use this medicine? Take this medicine by mouth. Swallow it with a full glass of water. Follow the directions on the prescription label. Do not take more medicine than you are told to take. Talk to your gun numberer regarding the use of this medicine in children. Special care may be needed. What side effects may I notice from receiving this medicine? Side effects that you should report to your doctor or health out of school hours care worker as soon as possible: difficulty breathing skin rash unusually weak or tired vomiting swelling of face, lips, or tongue yellow eyes or skin Side effects that usually do not require medical attention (report to your doctor or health out of school hours care worker if they continue or are bothersome): headache irritability nervousness stomach upset What may interact with this medicine? alcohol or medicines that contain alcohol antihistamines medicines for depression, anxiety, and other mental conditions medicines for pain like codeine, oxycodone, tramadol, and propoxyphene medicines for sleep phenobarbital What if I miss a dose? If you miss a dose, take it as soon as you can. If it is almost time for your next dose, take only that dose. Do not take double or extra doses. Where should I keep my medicine? Keep out of the reach of children. Store at room temperature between 15 and 30 degrees C (59 and 86 degrees F). Keep container tightly closed. Throw away any unused medicine after the expiration date. What should I tell my health care provider before I take this medicine? They need to know if you have any of these conditions: anemia or blood disorder kidney disease liver disease an unusual or allergic reaction to metaxalone, other medicines, foods, dyes, or preservatives or trying to get breast-feeding What should I watch for while using this medicine? Check with your doctor or health out of school hours care worker if your condition does not improve within 1 to 3 weeks. You may get drowsy or dizzy when you first start taking the medicine or change doses. Do not drive, use machinery, or do anything that may be dangerous until you know how the medicine affects you. Stand or sit up slowly. You have been given the following additional information: Back Pain (Acute Or Chronic) Metaxalone Oral tablet (Electronically signed by Yvan Carlson Dr. 07/12/2016 10:12)
--- NOTE | 2016-07-12 10:13 | ED MED RECONCILIATION SUMMARY ---
Patient: LEONIDAS KIM Medication Reconciliation Report [facility] VisitID: [id number] [address] [place] [address] 35y, F Registration Date/Time: 07/12/2016 Weight: 69.3 kg Height/Length: 60 in. BMI: 28.4 ALLERGIES: Tramadol The patient's Home Medications are listed below: CONTINUE TAKING THE FOLLOWING MEDICATIONS: Albuterol Sulfate Inhalation Lantus Subcutaneous 80 Units, at bedtime MetFORMIN HCl Oral (1000 mg) 1 tablet, 2x a day, 500 mg at noon Novalog sliding scale, before meals TraZODone HCl Oral 50 mg, at bedtime The source(s) of the original Home Medication information: Not obtained. The following Medications were given to the patient in the Emergency Department: Toradol [IM] IM 60 mg, administered: 07/12/2016 4:18:00 AM The following Medications were prescribed to the patient: Skelaxin 800 mg: Take 1 orally every 6 hours as needed for muscle spasm or pain. Dispense thirty (30). No refills. Substitution is permissible. -- Yvan Carlson Dr.
--- NOTE | 2016-07-12 10:13 | ED MAR SUMMARY ---
..... Medication Administration Record [facility] [address] [place] [address] Patient: LEONIDAS KIM Visit ID: [id number] 35y, F Weight: 69.3 kg Height/Length: 61.5 in BMI: 28.4 ALLERGIES: Tramadol Given 04:18 07/12/2016 Ramila Chandler RWyattNWyatt Medication Administered: TORADOL [IM] (KETOROLAC TROMETHAMINE), Dose: 60 mg IM. Medication Ordered: Toradol IM 60 mg (NOW).
--- NOTE | 2016-07-12 10:13 | ED MAR SUMMARY ---
..... Medication Administration Record [facility] [address] [place] [address] Patient: LEONIDAS KIM Visit ID: [id number] 35y, F Weight: 69.3 kg Height/Length: 61.5 in BMI: 28.4 ALLERGIES: Tramadol Given 04:18 07/12/2016 Ramila Chandler RWyattNWyatt Medication Administered: TORADOL [IM] (KETOROLAC TROMETHAMINE), Dose: 60 mg IM. Medication Ordered: Toradol IM 60 mg (NOW).
--- NOTE | 2016-07-12 10:13 | ED DISCHARGE INSTRUCTIONS ---
Patient: LEONIDAS KIM General Instructions [facility] VisitID: [id number] [place] [address] 35y, F Registration Date/Time: 07/12/2016 Chronic nontraumatic lumbar back pain associated with muscle strain. INSTRUCTIONS Your Current Medications: CONTINUE TAKING THE FOLLOWING MEDICATIONS: Albuterol Sulfate Inhalation. Lantus Subcutaneous : 80 Units at bedtime. MetFORMIN HCl Oral : Tablet 1000 mg, 1 tablet 2x a day, 500 mg at noon. Novalog* : sliding scale before meals. TraZODone HCl Oral : 50 mg at bedtime. Prescription Medications: Skelaxin 800 mg: Take 1 orally every 6 hours as needed for muscle spasm or pain. Dispense thirty (30). No refills. Substitution is permissible. Follow-up: Follow up with your doctor in about two days. Call for an appointment. Screening today revealed the patient's blood pressure to be in the normal range. ADDITIONAL INFORMATION Back Pain [Acute Or Chronic] Back pain is usually caused by an injury to the muscles or ligaments of the spine. Sometimes the disks that separate each bone in the spine may bulge and cause pain by pressing on a nearby nerve. Back pain may also appear after a sudden twisting/bending force (such as in a car accident), after a simple awkward movement, or lifting something heavy with poor body positioning. In either case, muscle spasm is often present and adds to the pain. Acute back pain usually gets better in one to two weeks. Back pain related to disk disease, arthritis in the spinal joints or spinal stenosis (narrowing of the spinal canal) can become chronic and last for months or years. Unless you had a physical injury (for example, a car accident or fall) X-rays are usually not ordered for the initial evaluation of back pain. If pain continues and does not respond to medical treatment, x-rays and other tests may be performed at a later time. Home Care: You may need to stay in bed the first few days. But, as soon as possible, begin sitting or walking to avoid problems with prolonged bed rest (muscle weakness, worsening back stiffness and pain, blood clots in the legs). When in bed, try to find a position of comfort. A firm mattress is best. Try lying flat on your back with pillows under your knees. You can also try lying on your side with your knees bent up towards your chest and a pillow between your knees. Avoid prolonged sitting. This puts more stress on the lower back than standing or walking. During the first two days after injury, apply an ICE PACK to the painful area for 20 minutes every 2-4 hours. This will reduce swelling and pain. HEAT (hot shower, hot bath or heating pad) works well for muscle spasm. You can start with ice, then switch to heat after two days. Some patients feel best alternating ice and heat treatments. Use the one method that feels the best to you. You may use acetaminophen (Tylenol) or ibuprofen (Motrin, Advil) to control pain, unless another pain medicine was prescribed. [NOTE: If you have chronic liver or kidney disease or ever had a stomach ulcer or GI bleeding, talk with your doctor before using these medicines.] Be aware of safe lifting methods and do not lift anything over 15 pounds until all the pain is gone. Follow Up with your doctor or this facility if your symptoms do not start to improve after one week. Physical therapy may be needed. [NOTE: If X-rays were taken, they will be reviewed by a radiologist. You will be notified of any new findings that may affect your care.] Get Prompt Medical Attention if any of the following occur: Pain becomes worse or spreads to your legs Weakness or numbness in one or both legs Loss of bowel or bladder control Numbness in the groin or genital area Metaxalone Oral tablet What is this medicine? METAXALONE (me TAX a lone) is a muscle relaxer. It is used to treat pain and stiffness in muscles caused by strains, sprains, or other injury. How should I use this medicine? Take this medicine by mouth. Swallow it with a full glass of water. Follow the directions on the prescription label. Do not take more medicine than you are told to take. Talk to your placement officer regarding the use of this medicine in children. Special care may be needed. What side effects may I notice from receiving this medicine? Side effects that you should report to your doctor or health nurse behavioral health care as soon as possible: difficulty breathing skin rash unusually weak or tired vomiting swelling of face, lips, or tongue yellow eyes or skin Side effects that usually do not require medical attention (report to your doctor or health nurse behavioral health care if they continue or are bothersome): headache irritability nervousness stomach upset What may interact with this medicine? alcohol or medicines that contain alcohol antihistamines medicines for depression, anxiety, and other mental conditions medicines for pain like codeine, oxycodone, tramadol, and propoxyphene medicines for sleep phenobarbital What if I miss a dose? If you miss a dose, take it as soon as you can. If it is almost time for your next dose, take only that dose. Do not take double or extra doses. Where should I keep my medicine? Keep out of the reach of children. Store at room temperature between 15 and 30 degrees C (59 and 86 degrees F). Keep container tightly closed. Throw away any unused medicine after the expiration date. What should I tell my health care provider before I take this medicine? They need to know if you have any of these conditions: anemia or blood disorder kidney disease liver disease an unusual or allergic reaction to metaxalone, other medicines, foods, dyes, or preservatives or trying to get breast-feeding What should I watch for while using this medicine? Check with your doctor or health nurse behavioral health care if your condition does not improve within 1 to 3 weeks. You may get drowsy or dizzy when you first start taking the medicine or change doses. Do not drive, use machinery, or do anything that may be dangerous until you know how the medicine affects you. Stand or sit up slowly. You have been given the following additional information: Back Pain (Acute Or Chronic) Metaxalone Oral tablet (Electronically signed by Yvan Carlson Dr. 07/12/2016 10:12)
== END 2016-07-12 05:19 | disposition home or self-care (01) ==
LOC: ED SRH 01:52
DX: S39.012A Strain of muscle, fascia and tendon of lower back, initial encounter (principal); X58.XXXA Exposure to other specified factors, initial encounter; Y93.9 Activity, unspecified; Y92.9 Unspecified place or not applicable; Y99.9 Unspecified external cause status; G89.29 Other chronic pain; I10 Essential (primary) hypertension; E11.9 Type 2 diabetes mellitus without complications; E78.00 Pure hypercholesterolemia, unspecified; J45.909 Unspecified asthma, uncomplicated
CPT/HCPCS: 90004; 93070

== ENCOUNTER 2016-07-19 01:45 | Emergency (ER) | payer OTHER ==
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
--- NOTE | 2016-07-19 04:44 | ED ORDER SUMMARY ---
..... Patient: LEONIDAS KIM OrderSheet [facility] VisitID: [id number] [place] [address] 35y, F Registration Date/Time: 07/19/2016 ORDER SHEET Weight: 69.3 kg (stated) Allergies: Tramadol GENERAL ORDERS: CBC w Diff Urgent (02:02 07/19/2016 Sav PEÑA) (Ack 2:13 LMuller) (2:19 CBradburn R.N.) CMP Urgent (02:02 07/19/2016 Sav PEÑA) (Ack 2:13 LMuller) (2:19 Willard R.N.) UA-Culture if indicated Urgent (02:02 07/19/2016 Sav PEÑA) (Ack 2:13 LMuller) (2:19 Willard R.N.) Amylase Urgent (02:02 07/19/2016 Sav PEÑA) (Ack 2:13 LMuller) (2:19 Willard R.N.) Lipase Urgent (02:02 07/19/2016 Sav PEÑA) (Ack 2:13 LMuller) (2:19 Willard R.N.) Urine Urgent (02:02 07/19/2016 Sav PEÑA) (Ack 2:13 LMuller) (2:19 Willard R.N.) Urine Drug Screen Urgent (02:02 07/19/2016 Sav PEÑA) (Ack 2:13 LMuller) (2:19 Willard R.N.) Salicylate Level Urgent (02:02 07/19/2016 Sav PEÑA) (Ack 2:13 LMuller) (2:19 Willard R.N.) Acetaminophen Level Urgent (02:02 07/19/2016 Sav PEÑA) (Ack 2:13 LMuller) (2:19 Willard R.N.) TSH Urgent (02:02 07/19/2016 Sav PEÑA) (Ack 2:13 LMuller) (2:19 Willard R.N.) Ethyl Alcohol Urgent (02:02 07/19/2016 Sav PEÑA) (Ack 2:13 LMuller) (2:19 Willard Barr) MEDICATION ORDERS: IV FLUIDS: ORDER SHEET NOTES: [Electronically signed by Geneva Lewis R.N. (05:12 07/19/2016)] [Electronically signed by Man Trinidad MD (23:53 07/20/2016)] [Electronically locked/signed by Geneva Lewis R.N. (05:12 07/19/2016)]
--- NOTE | 2016-07-19 04:44 | ED ORDER SUMMARY ---
..... Patient: LEONIDAS KIM OrderSheet [facility] VisitID: [id number] [place] [address] 35y, F Registration Date/Time: 07/19/2016 ORDER SHEET Weight: 69.3 kg (stated) Allergies: Tramadol GENERAL ORDERS: CBC w Diff Urgent (02:02 07/19/2016 Sav PEÑA) (Ack 2:13 LMuller) (2:19 CBradburn R.N.) CMP Urgent (02:02 07/19/2016 Sav PEÑA) (Ack 2:13 LMuller) (2:19 Willard R.N.) UA-Culture if indicated Urgent (02:02 07/19/2016 Sav PEÑA) (Ack 2:13 LMuller) (2:19 Willard R.N.) Amylase Urgent (02:02 07/19/2016 Sav PEÑA) (Ack 2:13 LMuller) (2:19 Willard R.N.) Lipase Urgent (02:02 07/19/2016 Sav PEÑA) (Ack 2:13 LMuller) (2:19 Willard R.N.) Urine Urgent (02:02 07/19/2016 Sav PEÑA) (Ack 2:13 LMuller) (2:19 Willard R.N.) Urine Drug Screen Urgent (02:02 07/19/2016 Sav PEÑA) (Ack 2:13 LMuller) (2:19 Willard R.N.) Salicylate Level Urgent (02:02 07/19/2016 Sav PEÑA) (Ack 2:13 LMuller) (2:19 Willard R.N.) Acetaminophen Level Urgent (02:02 07/19/2016 Sav PEÑA) (Ack 2:13 LMuller) (2:19 Willard R.N.) TSH Urgent (02:02 07/19/2016 Sav PEÑA) (Ack 2:13 LMuller) (2:19 Willard R.N.) Ethyl Alcohol Urgent (02:02 07/19/2016 Sav PEÑA) (Ack 2:13 LMuller) (2:19 Willard Barr) MEDICATION ORDERS: IV FLUIDS: ORDER SHEET NOTES: [Electronically signed by Geneva Lewis R.N. (05:12 07/19/2016)] [Electronically signed by Man Trinidad MD (23:53 07/20/2016)] [Electronically locked/signed by Geneva Lewis R.N. (05:12 07/19/2016)]
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
--- NOTE | 2016-07-20 23:54 | ED DISCHARGE INSTRUCTIONS ---
Patient: LEONIDAS KIM General Instructions [facility] VisitID: [id number] [place] [address] 35y, F Registration Date/Time: 07/19/2016 Adjustment disorder with disturbance of conduct. INSTRUCTIONS Stay with responsible adult family member (or other responsible adult). Warnings: Further evaluation is necessary. GENERAL WARNINGS: Return or contact your physician immediately if your condition worsens or changes unexpectedly, if not improving as expected, or if other problems arise. Your Current Medications: CONTINUE TAKING THE FOLLOWING MEDICATIONS: Albuterol Sulfate Inhalation. Lantus Subcutaneous : 80 Units at bedtime. MetFORMIN HCl Oral : Tablet 1000 mg, 1 tablet 2x a day, 500 mg at noon. Novalog* : sliding scale before meals. CONTINUE TAKING THE FOLLOWING MEDICATIONS UNTIL YOU CHECK WITH YOUR PHYSICIAN: Skelaxin Oral : Tablet 800 mg, 4x a day, prn. TraZODone HCl Oral : 50 mg at bedtime. Follow-up: Follow up with your doctor in four days. Call for the next available appointment. Understanding of the discharge instructions verbalized by patient and family. ADDITIONAL INFORMATION Adjustment Disorder An adjustment disorder is a condition that results from having a hard time coping with the normal stresses of life. You may feel you have too much to do and cant get it all done. These feelings may be triggered by divorce, job loss, someone you know dying, or by a positive event like getting a new job or getting . These feelings may interfere with your relationships at home and at work. With this condition, it is common to feel sad, guilty, hopeless and restless. These feelings may continue for weeks or months. It can be helpful to identify what is causing the additional stress and takes steps to get extra support. If new stressful events do not occur, it is likely that you will start feeling better within six months. Home Care: If you have been given a prescription for medicine, take it as directed. It helps to talk about your feelings and thoughts with family or friends that understand and support you. Follow Up with your doctor or therapist as advised by our staff. Let them know if this condition lasts more than six months without sign of improvement. For more information, contact the National [place] [employer]ness at 199-333-8045 or visit www.cheikh.org. Get Prompt Medical Attention if any of the following occur: Worsening depression or anxiety Feeling out of control Thoughts of harming yourself or another Being unable to care for yourself You have been given the following additional information: Adjustment Disorder Stay with responsible adult family member (or other responsible adult). (Electronically signed by Man Trinidad MD 07/20/2016 23:53)
--- NOTE | 2016-07-20 23:54 | ED MAR SUMMARY ---
..... Medication Administration Record [facility] [address] [place], [place] [id number] Patient: LEONIDAS KIM Visit ID: [id number] 35y, F Weight: 69.3 kg Height/Length: 61 in BMI: 28.9 ALLERGIES: Tramadol
--- NOTE | 2016-07-20 23:54 | ED MED RECONCILIATION SUMMARY ---
Patient: LEONIDAS KIM Medication Reconciliation Report [facility] VisitID: [id number] [address] [place] [address] 35y, F Registration Date/Time: 07/19/2016 Weight: 69.3 kg Height/Length: 61 in. BMI: 28.9 ALLERGIES: Tramadol The patient's Home Medications are listed below: CONTINUE TAKING THE FOLLOWING MEDICATIONS: Albuterol Sulfate Inhalation Lantus Subcutaneous 80 Units, at bedtime MetFORMIN HCl Oral (1000 mg) 1 tablet, 2x a day, 500 mg at noon Novalog sliding scale, before meals CONTINUE TAKING THE FOLLOWING MEDICATIONS UNTIL YOU CHECK WITH YOUR PHYSICIAN: Skelaxin Oral (800 mg), 4x a day TraZODone HCl Oral 50 mg, at bedtime The source(s) of the original Home Medication information: patient The following Medications were given to the patient in the Emergency Department: None. The following Medications were prescribed to the patient: None.
--- NOTE | 2016-07-20 23:54 | ED MAR SUMMARY ---
..... Medication Administration Record [facility] [address] [place], [place] [id number] Patient: LEONIDAS KIM Visit ID: [id number] 35y, F Weight: 69.3 kg Height/Length: 61 in BMI: 28.9 ALLERGIES: Tramadol
--- NOTE | 2016-07-20 23:54 | ED DISCHARGE INSTRUCTIONS ---
Patient: LEONIDAS KIM General Instructions [facility] VisitID: [id number] [place] [address] 35y, F Registration Date/Time: 07/19/2016 Adjustment disorder with disturbance of conduct. INSTRUCTIONS Stay with responsible adult family member (or other responsible adult). Warnings: Further evaluation is necessary. GENERAL WARNINGS: Return or contact your physician immediately if your condition worsens or changes unexpectedly, if not improving as expected, or if other problems arise. Your Current Medications: CONTINUE TAKING THE FOLLOWING MEDICATIONS: Albuterol Sulfate Inhalation. Lantus Subcutaneous : 80 Units at bedtime. MetFORMIN HCl Oral : Tablet 1000 mg, 1 tablet 2x a day, 500 mg at noon. Novalog* : sliding scale before meals. CONTINUE TAKING THE FOLLOWING MEDICATIONS UNTIL YOU CHECK WITH YOUR PHYSICIAN: Skelaxin Oral : Tablet 800 mg, 4x a day, prn. TraZODone HCl Oral : 50 mg at bedtime. Follow-up: Follow up with your doctor in four days. Call for the next available appointment. Understanding of the discharge instructions verbalized by patient and family. ADDITIONAL INFORMATION Adjustment Disorder An adjustment disorder is a condition that results from having a hard time coping with the normal stresses of life. You may feel you have too much to do and cant get it all done. These feelings may be triggered by divorce, job loss, someone you know dying, or by a positive event like getting a new job or getting . These feelings may interfere with your relationships at home and at work. With this condition, it is common to feel sad, guilty, hopeless and restless. These feelings may continue for weeks or months. It can be helpful to identify what is causing the additional stress and takes steps to get extra support. If new stressful events do not occur, it is likely that you will start feeling better within six months. Home Care: If you have been given a prescription for medicine, take it as directed. It helps to talk about your feelings and thoughts with family or friends that understand and support you. Follow Up with your doctor or therapist as advised by our staff. Let them know if this condition lasts more than six months without sign of improvement. For more information, contact the National [place] on Mental Illness at 173-990-5239 or visit www.cheikh.org. Get Prompt Medical Attention if any of the following occur: Worsening depression or anxiety Feeling out of control Thoughts of harming yourself or another Being unable to care for yourself You have been given the following additional information: Adjustment Disorder Stay with responsible adult family member (or other responsible adult). (Electronically signed by Man Trinidad MD 07/20/2016 23:53)
--- NOTE | 2016-07-20 23:54 | ED MED RECONCILIATION SUMMARY ---
Patient: LEONIDAS KIM Medication Reconciliation Report [facility] VisitID: [id number] [address] [place] [address] 35y, F Registration Date/Time: 07/19/2016 Weight: 69.3 kg Height/Length: 61 in. BMI: 28.9 ALLERGIES: Tramadol The patient's Home Medications are listed below: CONTINUE TAKING THE FOLLOWING MEDICATIONS: Albuterol Sulfate Inhalation Lantus Subcutaneous 80 Units, at bedtime MetFORMIN HCl Oral (1000 mg) 1 tablet, 2x a day, 500 mg at noon Novalog sliding scale, before meals CONTINUE TAKING THE FOLLOWING MEDICATIONS UNTIL YOU CHECK WITH YOUR PHYSICIAN: Skelaxin Oral (800 mg), 4x a day TraZODone HCl Oral 50 mg, at bedtime The source(s) of the original Home Medication information: patient The following Medications were given to the patient in the Emergency Department: None. The following Medications were prescribed to the patient: None.
== END 2016-07-19 05:04 | disposition home or self-care (01) ==
LOC: ED SRH 01:45
DX: F43.23 Adjustment disorder with mixed anxiety and depressed mood (principal); I10 Essential (primary) hypertension; E11.9 Type 2 diabetes mellitus without complications; Z88.5 Allergy status to narcotic agent; Z79.4 Long term (current) use of insulin; Z79.84 Long term (current) use of oral hypoglycemic drugs; Z79.899 Other long term (current) drug therapy; F17.210 Nicotine dependence, cigarettes, uncomplicated; J45.909 Unspecified asthma, uncomplicated
CPT/HCPCS: 90004; 90100; 92010; 92235; 92530; 92760; 92761; 92762; 92763; 92764; 92765; 92766; 92767; 92780; 93070; 93140; 95059; 97000

== ENCOUNTER 2016-08-12 14:17 | Emergency (ER) | payer OTHER ==
--- NOTE | 2016-08-12 16:49 | DIAGNOSTIC IMAGING REPORT ---
PROCEDURE: CT ABD/PELVIS WITH CONTRAST INDICATION: Abdominal pain and nausea. History of fatty liver and ovarian cyst. TECHNIQUE: 125 ml of Isovue 300 were injected intravenously and axial images were obtained of the entire abdomen and pelvis with sagittal and coronal reformations. COMPARISON: None. FINDINGS: ABDOMEN: There are two- small layering gallstones (no change). There is moderate generalized fatty infiltration of the liver. No evidence of focal abnormality. Spleen, pancreas, kidneys, and aorta are normal. Moderate stool throughout the colon. Bowel pattern is otherwise normal, including appendix. PELVIS: There is a 2.8 cm partially collapsed right ovarian cyst with small amount of free fluid. Uterus and left adnexal structures are normal. IMPRESSION: 1. Cholelithiasis (two small gallstones - - no change). 2. Moderate generalized fatty infiltration of the liver. 3. Moderate stool. Consider obstipation. 4. There is a 2.8 cm partially collapsed right ovarian cyst with a small amount of free fluid. 5. Findings discussed with BARTOLOME Sal. All CT scans at this facility use dose modulation, iterative reconstruction, and/or weight-based dosing when appropriate to reduce radiation dose to as low as reasonably achievable.
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
--- NOTE | 2016-08-12 17:10 | ED CLINICAL REPORT ---
Clinical Report - Physicians/Mid Levels [facility] [address] [place] [place] [address] 08/12/2016 14:19 Patient: LEONIDAS KIM Time Seen: 14:28 Aug 12 2016. Arrived- By private vehicle. Historian- patient. HISTORY OF PRESENT ILLNESS Chief Complaint: ABDOMINAL PAIN. It is described as "pain" and it is described as located in the upper abdomen. This started yesterday. (Epigastric abdominal pain or into her abdomen over the last 2 days. Decreased appetite. Pain is rather constant. Denies history of similar. Last nausea. ut 2 weeks previously, as expected. Patient denies sick contacts. He denies fevers or chills. Patient denies to area. She denies emesis, has had nausea. Patient denies history of nephrolithiasis, history of similar pain.). REVIEW OF SYSTEMS No constipation, black stools, difficulty with urination, fever or chills. Denies current . All systems otherwise negative, except as recorded above. SOCIAL HISTORY Smoker- current status unknown. ADDITIONAL NOTES The nursing notes have been reviewed. PHYSICAL EXAM Vital Signs: 08/12/2016 14:28 BP: 131/88. HR: 115. RR: 16. O2 saturation: 99%. Temp: 97.6 F. Pain level now: 8/10. Appearance: Alert. Eyes: Eyes normal inspection. ENT: Nose normal. Pharynx normal. Neck: Normal inspection. CVS: Normal heart rate and rhythm. Heart sounds normal. No extra heart sounds. Respiratory: No respiratory distress. Breath sounds normal. No decreased air movement. Abdomen: Soft. Moderate tenderness in the periumbilical area and right lower quadrant. Mass present. Organomegaly present. No obesity, distention, mass present, femoral pulse deficit or gravid uterus. Skin: Skin warm. Normal skin color. Neuro: Oriented X 3. No motor deficit. LABS, X-RAYS, AND EKG Laboratory Tests: UA-Culture if indicated: (TIMO: 08/12/2016 15:00) ( MsgRcvd 08/12/2016 15:20) Final results Test Result Flag Units (Reference) URINE COLOR YELLOW URINE APPEARANCE CLEAR URINE GLUCOSE 3+ (NEGATIVE) URINE BILIRUBIN ICTOTEST POSITIVE (NEGATIVE) URINE KETONE 3+ (NEGATIVE) URINE SPECIFIC GRAVITY 1.020 (1.010-1.030) URINE PH 6.0 (5.0-8.0) URINE PROTEIN 1+ (NEGATIVE) URINE UROBILINOGEN 0.2 EU/dL (0.2-1.0) URINE NITRITE NEGATIVE (NEGATIVE) URINE BLOOD TRACE-LYSED (NEGATIVE) URINE LEUK ESTERASE NEGATIVE (NEGATIVE) URINE RBC NONE SEEN rbc/hpf (0-1) URINE WBC 1-3 wbc/hpf (0-1) URINE EPITHELIAL CELLS 1-3 EPI/hpf (0-5) URINE BACTERIA NONE SEEN (NONE SEEN) URINE COMMENT CULT NOT INDICATED URINE CULTURES ARE SET-UP BASED ON THE FOLLOWING CRITERIA:POSITIVE NITRITEPOSITIVE LEUKOCYTE ESTERASEGREATER THAN 10 WHITE BLOOD CELLSMODERATE (2+) OR GREATER BACTERIA CBC w Diff: (TIMO: 08/12/2016 14:50) ( [facility]) Final results Test Result Flag Units (Reference) WHITE BLOOD COUNT 12.3 H K/uL (4.5-11.5) RED BLOOD COUNT 5.74 H M/uL (4.00-5.20) HEMOGLOBIN 16.4 H gm/dL (12.0-16.0) HEMATOCRIT 47.4 H % (36.0-46.0) MEAN CELL VOLUME 82 fL (80-100) MEAN CORPUSCULAR HGB 29 pg (26-34) MEAN CORPUSCULAR HGB CONC 35 g/dL (31-37) RED CELL DISTRIBUTION WIDTH 14.9 H % (11.6-14.8) PLATELET COUNT 346 K/uL (150-400) NEUTROPHIL % 73.7 % (50-75) LYMPH % 19.7 L % (25-40) MONO % 4.3 % (3-14) EOSINOPHIL % 2.0 % (0-4) BASOPHIL % 0.3 % (0-2) CMP: (TIMO: 08/12/2016 14:50) ( [facility] 08/12/[facility] 16[facility]00) Final results Test Result Flag Units (Reference) LIPASE 184 U/L (73-393) GLUCOSE 412 H mg/dL (70-110) BUN 16 mg/dL (7-18) CREATININE 0.7 mg/dL (0.6-1.3) Estimated GFR >60 mL/min Estimated GFR- >60 mL/min Note: Persistent reduction over 3 months in eGFR<60 mL/min/1.73 m2 defines CKD. Patients with eGFR values>=60 mL/min/1.73 m2 may also have CKD if evidence ofpersistent proteinuria. Additional information may be foundat www.kidney.org. SODIUM 128 L mmol/L (136-145) POTASSIUM 4.4 mmol/L (3.5-5.1) CHLORIDE 94 L mmol/L (98-107) CARBON DIOXIDE 16 L mmol/L (21-32) CALCIUM 8.8 mg/dL (8.5-10.1) TOTAL PROTEIN 8.4 H g/dL (6.4-8.2) ALBUMIN 4.1 g/dL (3.3-5.0) BILIRUBIN, TOTAL 0.5 mg/dL (0.0-1.0) ALKALINE PHOSPHATASE 136 H U/L (46-116) AST (SGOT) 22 U/L (15-37) ALT (SGPT) 33 U/L (12-78) . Note - Tests: (US: IMPRESSION: 1. Cholelithiasis (two small gallstones - - no change). 2. Moderate generalized fatty infiltration of the liver. 3. Moderate stool. Consider obstipation. 4. There is a 2.8 cm partially collapsed right ovarian cyst with a small amount of free fluid. 5. Findings discussed with Zunilda Andersen, BARTOLOME. All CT scans at this facility use dose modulation, iterative reconstruction, and/or weight-based dosing when appropriate to reduce radiation dose to as low as reasonably achievable. Electronically Final signed by:Arturo Palmer MD). PROGRESS AND PROCEDURES Course of Care: Patient was generalized pain, nonspecific with no guarding or peritoneal signs. No sudden pain. Most consistentwith cholelithiasis, and ovarian cyst. Negative in the clinic prior to arrival for patient. 08/12/2016 17:17 BP: 123/82. HR: 105. RR: 16. O2 saturation: 98%. Pain level now: 4/10. Patient is stable. Symptoms better. Patient/family counseled. Disposition: Discharged. CLINICAL IMPRESSION Cholelithiasis. No obstruction or cholecystitis. Simple right ovarian cyst. INSTRUCTIONS Drink plenty of fluids. (return precautions as discussed). Prescription Medications: Hydrocodone/APAP 5mg / 325mg: take 1 orally every 6 hours as needed for pain. Dispense ten (10). No refill. Zofran (orally disintegrating tablets) 4 mg: take 1 orally every 6 hours for 3 days as needed for nausea. No refill. (Electronically signed by Quynh Andersen P.A.-C 08/12/2016 18:10)
--- NOTE | 2016-08-12 17:10 | ED ORDER SUMMARY ---
..... Patient: LEONIDAS KIM OrderSheet [facility] VisitID: [id number] [place] [address] 36y, F Registration Date/Time: 08/12/2016 ORDER SHEET Weight: 66.6 kg (stated) Allergies: Tramadol GENERAL ORDERS: CBC w Diff Urgent (14:40 08/12/2016 EKoroleva P.A.-C) (Ack 14:47 KHoerner) (14:57 KKnebel R.N.) CMP Urgent (14:40 08/12/2016 EKoroleva P.A.-C) (Ack 14:47 KHoerner) (14:57 KKnebel R.N.) UA-Culture if indicated Urgent (14:40 08/12/2016 EKoroleva P.A.-C) (Ack 14:47 KHoerner) (15:06 KKnebel R.N.) Lipase Urgent (14:40 08/12/2016 EKoroleva P.A.-C) (Ack 14:47 KHoerner) (14:57 KKnebel R.N.) CT Abd/Pel w Cont (No) ( see lab) Urgent (16:11 08/12/2016 EKoroleva P.A.-C) (Ack 16:14 KHoerner) (16:35 MCampbell) MEDICATION ORDERS: Phenergan IV 12.5 mg (HIGH ALERT MEDICATION, NOW) (16:39 08/12/2016 EKoroleva P.A.-C) (16:51 KKnebel R.N.) IV FLUIDS: IV NS : initial bolus 1000 mL (1000 mL/hr), then 1000 mL/hr for X1 (NOW); Gonzales (14:39 08/12/2016 EKoroleva P.A.-C) (15:06 KKnebel R.N.) Toradol IV 30 mg (NOW) (14:39 08/12/2016 EKoroleva P.A.-C) (Hold 14:57 KKnebel R.N.) Zofran IV 4 mg (NOW) (14:40 08/12/2016 Yvonne Moss) (14:57 Jelly R.NWyatt) Dilaudid IV 0.5 mg (HIGH ALERT MEDICATION, NOW) (15:03 08/12/2016 Yvonne Moss) (15:06 Jelly Barr) ORDER SHEET NOTES: [Electronically signed by Quynh Andersen P.A.-C (18:10 08/12/2016)] [Electronically signed by Romana Hood R.N. (23:47 08/12/2016)] [Electronically locked/signed by Romana Hood R.N. (23:47 08/12/2016)]
--- NOTE | 2016-08-12 17:10 | ED ORDER SUMMARY ---
..... Patient: LEONIDAS KIM OrderSheet [facility] VisitID: [id number] [place] [address] 36y, F Registration Date/Time: 08/12/2016 ORDER SHEET Weight: 66.6 kg (stated) Allergies: Tramadol GENERAL ORDERS: CBC w Diff Urgent (14:40 08/12/2016 EKoroleva P.A.-C) (Ack 14:47 KHoerner) (14:57 KKnebel R.N.) CMP Urgent (14:40 08/12/2016 EKoroleva P.A.-C) (Ack 14:47 KHoerner) (14:57 KKnebel R.N.) UA-Culture if indicated Urgent (14:40 08/12/2016 EKoroleva P.A.-C) (Ack 14:47 KHoerner) (15:06 KKnebel R.N.) Lipase Urgent (14:40 08/12/2016 EKoroleva P.A.-C) (Ack 14:47 KHoerner) (14:57 KKnebel R.N.) CT Abd/Pel w Cont (No) ( see lab) Urgent (16:11 08/12/2016 EKoroleva P.A.-C) (Ack 16:14 KHoerner) (16:35 MCampbell) MEDICATION ORDERS: Phenergan IV 12.5 mg (HIGH ALERT MEDICATION, NOW) (16:39 08/12/2016 EKoroleva P.A.-C) (16:51 KKnebel R.N.) IV FLUIDS: IV NS : initial bolus 1000 mL (1000 mL/hr), then 1000 mL/hr for X1 (NOW); Gonzales (14:39 08/12/2016 EKoroleva P.A.-C) (15:06 KKnebel R.N.) Toradol IV 30 mg (NOW) (14:39 08/12/2016 EKoroleva P.A.-C) (Hold 14:57 KKnebel R.N.) Zofran IV 4 mg (NOW) (14:40 08/12/2016 Yvonne Moss) (14:57 Jelly R.NWyatt) Dilaudid IV 0.5 mg (HIGH ALERT MEDICATION, NOW) (15:03 08/12/2016 Yvonne Moss) (15:06 Jelly Barr) ORDER SHEET NOTES: [Electronically signed by Quynh Andersen P.A.-C (18:10 08/12/2016)] [Electronically signed by Romana Hood R.N. (23:47 08/12/2016)] [Electronically locked/signed by Romana Hood R.N. (23:47 08/12/2016)]
--- NOTE | 2016-08-12 23:47 | ED MED RECONCILIATION SUMMARY ---
Patient: LEONIDAS KIM Medication Reconciliation Report [facility] VisitID: [id number] [address] [place] [address] 36y, F Registration Date/Time: 08/12/2016 Weight: 66.6 kg Height/Length: 60 in. BMI: 27.3 ALLERGIES: Tramadol The patient's Home Medications are listed below: THE FOLLOWING MEDICATIONS NEED TO BE RECONCILED: Lantus Subcutaneous 80 units, at bedtime Lisinopril Oral 5 mg, daily MetFORMIN HCl Oral (1000 mg) 1 tablet, 2x a day NovoLOG Subcutaneous Vitamins Oral PROzac Oral 50 mg, daily Skelaxin Oral 400 mg, 3x a day Vistaril Oral (50 mg) 1-3 capsules, 3x a day The source(s) of the original Home Medication information: Not obtained. The following Medications were given to the patient in the Emergency Department: Zofran [IVP] IVP 4 mg, administered: 08/12/2016 2:57:00 PM IV NS IV Fluids bolus 1000 mL over 1 hour(s), administered: 08/12/2016 3:06:00 PM Dilaudid [IVP] IVP 0.5 mg, administered: 08/12/2016 3:06:00 PM PHENERGAN [IVP] IVP 12.5 mg, administered: 08/12/2016 4:51:00 PM The following Medications were prescribed to the patient: Hydrocodone/APAP 5mg / 325mg: take 1 orally every 6 hours as needed for pain. Dispense ten (10). No refill. -- Quynh Andersen P.AWyatt-Sita Zofran (orally disintegrating tablets) 4 mg: take 1 orally every 6 hours for 3 days as needed for nausea. No refill. -- Quynh Andersen, P.A.-C
--- NOTE | 2016-08-12 23:47 | ED DISCHARGE INSTRUCTIONS ---
Patient: LEONIDAS KIM General Instructions [facility] VisitID: [id number] [place] [address] 36y, F Registration Date/Time: 08/12/2016 Cholelithiasis. No obstruction or cholecystitis. Simple right ovarian cyst. INSTRUCTIONS Drink plenty of fluids. (return precautions as discussed). Prescription Medications: Hydrocodone/APAP 5mg / 325mg: take 1 orally every 6 hours as needed for pain. Dispense ten (10). No refill. Zofran (orally disintegrating tablets) 4 mg: take 1 orally every 6 hours for 3 days as needed for nausea. No refill. ADDITIONAL INFORMATION GallstonesWith Biliary Colic [Confirmed Dx] The abdominal pain that you have today is due to spasm of the gallbladder. The gallbladder is a small sac under the liver which stores and releases bile. Bile is a fluid that aids in the digestion of fat. A gallstone may form inside the gallbladder and block the flow of bile fluid. This causes mild to severe crampy pain in the mid or right upper abdomen with nausea and vomiting. Home Care: Rest in bed and follow a clear liquid diet until feeling better. If pain or nausea medicine was given to help with your symptoms, take these as directed. Fat in your diet makes the gallbladder contract and may cause increased pain. Therefore, avoid fat in your diet over the next two days and follow a low-fat diet after that. If you are overweight, a low-fat diet will also help you lose weight. Follow Up with your doctor. There is a 50% chance that you will have another episode of pain from your gallstones during the next 2 years. Removal of the gallbladder is the treatment of choice to prevent this. Schedule an appointment with your own doctor during the next week to discuss the treatment options. Get Prompt Medical Attention if any of the following occur: Pain gets worse or moves to the right lower abdomen Repeated vomiting Swelling of the abdomen Pain lasts over 6 hours Fever of 100.4F (38C) or higher, or as directed by your healthcare provider Weakness, dizziness or fainting Dark urine or light colored stools Yellow color of the skin or eyes Chest, arm, back, neck or jaw pain Ovarian Cyst The ovary is a small organ located on each side of the uterus. During each menstrual cycle a tiny egg sac forms in the ovary. If the egg is released but does not occur, this sac usually dissolves. Sometimes, the sac may fill with fluid. It then enlarges into a painful cyst. Usually the cyst will rupture or shrink on its own. In either case, the pain gradually goes away over the next 1-3 days. If the cyst does not shrink or rupture, it may cause continued pain. Home Care: Rest in bed and avoid heavy exertion until you are feeling better. Heat to the lower abdomen usually helps (heating pad or hot packs -- a small towel soaked in hot water). You may use acetaminophen (Tylenol) or ibuprofen (Motrin, Advil) to control pain, unless another pain medicine was prescribed. [NOTE: If you have chronic liver or kidney disease or ever had a stomach ulcer or GI bleeding, talk with your doctor before using these medicines.] Follow Up: See your doctor within the next 2-3 days if your pain doesnt improve. Otherwise, follow up with your doctor after your next period or as directed by our staff. Get Prompt Medical Attention if any of the following occur: Pain worsens or fails to respond to the above measures Fever of 100.4F (38C) or higher, or as directed by your healthcare provider Heavy vaginal bleeding (soaking one pad an hour for three hours) You feel weak or dizzy Fainting Passage of a pink or babcock tissue with menstrual bleeding Hydrocodone Bitartrate, Acetaminophen Oral tablet What is this medicine? ACETAMINOPHEN; HYDROCODONE (a set a JOSE GUADALUPE ervin fen; luis droe KOE done) is a pain reliever. It is used to treat mild to moderate pain. How should I use this medicine? Take this medicine by mouth. Swallow it with a full glass of water. Follow the directions on the prescription label. If the medicine upsets your stomach, take the medicine with food or milk. Do not take more than you are told to take. Talk to your fur blower regarding the use of this medicine in children. This medicine is not approved for use in children. What side effects may I notice from receiving this medicine? Side effects that you should report to your doctor or health congregational care pastor as soon as possible: allergic reactions like skin rash, itching or hives, swelling of the face, lips, or tongue breathing problems confusion feeling faint or lightheaded, falls stomach pain yellowing of the eyes or skin Side effects that usually do not require medical attention (report to your doctor or health congregational care pastor if they continue or are bothersome): nausea, vomiting stomach upset What may interact with this medicine? alcohol antihistamines isoniazid medicines for depression, anxiety, or psychotic disturbances medicines for sleep muscle relaxants naltrexone narcotic medicines (opiates) for pain phenobarbital ritonavir tramadol What if I miss a dose? If you miss a dose, take it as soon as you can. If it is almost time for your next dose, take only that dose. Do not take double or extra doses. Where should I keep my medicine? Keep out of the reach of children. This medicine can be abused. Keep your medicine in a safe place to protect it from theft. Do not share this medicine with anyone. Selling or giving away this medicine is dangerous and against the law. Store at room temperature between 15 and 30 degrees C (59 and 86 degrees F). Protect from light. Keep container tightly closed. Throw away any unused medicine after the expiration date. Discard unused medicine and used packaging carefully. Pets and children can be harmed if they find used or lost packages. What should I tell my health care provider before I take this medicine? They need to know if you have any of these conditions: brain tumor Crohn's disease, inflammatory bowel disease, or ulcerative colitis drink more than 3 alcohol-containing drinks per day drug abuse or addiction head injury heart or circulation problems kidney disease or problems going to the bathroom liver disease lung disease, asthma, or breathing problems an unusual or allergic reaction to acetaminophen, hydrocodone, other opioid analgesics, other medicines, foods, dyes, or preservatives or trying to get breast-feeding What should I watch for while using this medicine? Tell your doctor or health congregational care pastor if your pain does not go away, if it gets worse, or if you have new or a different type of pain. You may develop tolerance to the medicine. Tolerance means that you will need a higher dose of the medicine for pain relief. Tolerance is normal and is expected if you take the medicine for a long time. Do not suddenly stop taking your medicine because you may develop a severe reaction. Your body becomes used to the medicine. This does NOT mean you are addicted. Addiction is a behavior related to getting and using a drug for a non-medical reason. If you have pain, you have a medical reason to take pain medicine. Your doctor will tell you how much medicine to take. If your doctor wants you to stop the medicine, the dose will be slowly lowered over time to avoid any side effects. You may get drowsy or dizzy when you first start taking the medicine or change doses. Do not drive, use machinery, or do anything that may be dangerous until you know how the medicine affects you. Stand or sit up slowly. There are different types of narcotic medicines (opiates) for pain. If you take more than one type at the same time, you may have more side effects. Give your health care provider a list of all medicines you use. Your doctor will tell you how much medicine to take. Do not take more medicine than directed. Call emergency for help if you have problems breathing. The medicine will cause constipation. Try to have a bowel movement at least every 2 to 3 days. If you do not have a bowel movement for 3 days, call your doctor or health congregational care pastor. Too much acetaminophen can be very dangerous. Do not take Tylenol (acetaminophen) or medicines that contain acetaminophen with this medicine. Many non-prescription medicines contain acetaminophen. Always read the labels carefully. You have been given the following additional information: Biliary Colic With Gallstone (Confirmed) Ovarian Cyst Hydrocodone Bitartrate, Acetaminophen Oral tablet (Electronically signed by Quynh Andersen P.A.-C 08/12/2016 18:10)
--- NOTE | 2016-08-12 23:47 | ED MED RECONCILIATION SUMMARY ---
Patient: LEONIDAS KIM Medication Reconciliation Report [facility] VisitID: [id number] [address] [place] [address] 36y, F Registration Date/Time: 08/12/2016 Weight: 66.6 kg Height/Length: 60 in. BMI: 27.3 ALLERGIES: Tramadol The patient's Home Medications are listed below: THE FOLLOWING MEDICATIONS NEED TO BE RECONCILED: Lantus Subcutaneous 80 units, at bedtime Lisinopril Oral 5 mg, daily MetFORMIN HCl Oral (1000 mg) 1 tablet, 2x a day NovoLOG Subcutaneous Vitamins Oral PROzac Oral 50 mg, daily Skelaxin Oral 400 mg, 3x a day Vistaril Oral (50 mg) 1-3 capsules, 3x a day The source(s) of the original Home Medication information: Not obtained. The following Medications were given to the patient in the Emergency Department: Zofran [IVP] IVP 4 mg, administered: 08/12/2016 2:57:00 PM IV NS IV Fluids bolus 1000 mL over 1 hour(s), administered: 08/12/2016 3:06:00 PM Dilaudid [IVP] IVP 0.5 mg, administered: 08/12/2016 3:06:00 PM PHENERGAN [IVP] IVP 12.5 mg, administered: 08/12/2016 4:51:00 PM The following Medications were prescribed to the patient: Hydrocodone/APAP 5mg / 325mg: take 1 orally every 6 hours as needed for pain. Dispense ten (10). No refill. -- Quynh Andersen P.AWyatt-Sita Zofran (orally disintegrating tablets) 4 mg: take 1 orally every 6 hours for 3 days as needed for nausea. No refill. -- Quynh Andersen, P.A.-C
--- NOTE | 2016-08-12 23:47 | ED MAR SUMMARY ---
..... Medication Administration Record [facility] [address] [place] [address] Patient: LEONIDAS KIM Visit ID: [id number] 36y, F Weight: 66.6 kg Height/Length: 61.5 in BMI: 27.3 ALLERGIES: Tramadol Given 14:57 08/12/2016 Romana Hood R.N. Medication Administered: ZOFRAN [IVP] (ONDANSETRON HCL), Dose: 4 mg IVP over 2 minute(s), Site: #1 right AC. Medication Ordered: Zofran IV 4 mg (NOW). Given 15:06 08/12/2016 Romana Hood R.N. Medication Administered: DILAUDID [IVP] (HYDROMORPHONE HCL PF), Dose: 0.5 mg IVP over 2 minute(s), Site: #1 right AC. Medication Ordered: Dilaudid IV 0.5 mg (HIGH ALERT MEDICATION, NOW). Start 15:06 08/12/2016 Romana Hood R.N., Stop 15:49 08/12/2016 Romana Hood R.N. Medication Administered: IV NS (SALINE), Dose: IV Fluids, Bolus: 1000 mL over 1 hour(s), Dispensed: 1000 mL bag, Site: #1 right AC. Medication Ordered: IV NS : initial bolus 1000 mL (1000 mL/hr), then 1000 mL/hr for X1 (NOW); Gonzales. Given 16:51 08/12/2016 Romana Hood R.N. Medication Administered: PHENERGAN [IVP] (PROMETHAZINE HCL), Dose: 12.5 mg IVP over 2 minute(s), Site: #1 right AC. Medication Ordered: Phenergan IV 12.5 mg (HIGH ALERT MEDICATION, NOW).
--- NOTE | 2016-08-12 23:47 | ED MAR SUMMARY ---
..... Medication Administration Record [facility] [address] [place] [address] Patient: LEONIDAS KIM Visit ID: [id number] 36y, F Weight: 66.6 kg Height/Length: 61.5 in BMI: 27.3 ALLERGIES: Tramadol Given 14:57 08/12/2016 Romana Hood R.N. Medication Administered: ZOFRAN [IVP] (ONDANSETRON HCL), Dose: 4 mg IVP over 2 minute(s), Site: #1 right AC. Medication Ordered: Zofran IV 4 mg (NOW). Given 15:06 08/12/2016 Romana Hood R.N. Medication Administered: DILAUDID [IVP] (HYDROMORPHONE HCL PF), Dose: 0.5 mg IVP over 2 minute(s), Site: #1 right AC. Medication Ordered: Dilaudid IV 0.5 mg (HIGH ALERT MEDICATION, NOW). Start 15:06 08/12/2016 Romana Hood R.N., Stop 15:49 08/12/2016 Romana Hood R.N. Medication Administered: IV NS (SALINE), Dose: IV Fluids, Bolus: 1000 mL over 1 hour(s), Dispensed: 1000 mL bag, Site: #1 right AC. Medication Ordered: IV NS : initial bolus 1000 mL (1000 mL/hr), then 1000 mL/hr for X1 (NOW); Gonzales. Given 16:51 08/12/2016 Romana Hood R.N. Medication Administered: PHENERGAN [IVP] (PROMETHAZINE HCL), Dose: 12.5 mg IVP over 2 minute(s), Site: #1 right AC. Medication Ordered: Phenergan IV 12.5 mg (HIGH ALERT MEDICATION, NOW).
== END 2016-08-12 17:19 | disposition home or self-care (01) ==
LOC: ED SRH 14:17
DX: K80.20 Calculus of gallbladder without cholecystitis without obstruction (principal); N83.291 Other ovarian cyst, right side; I10 Essential (primary) hypertension; E78.00 Pure hypercholesterolemia, unspecified; E11.9 Type 2 diabetes mellitus without complications; Z79.84 Long term (current) use of oral hypoglycemic drugs; Z79.4 Long term (current) use of insulin; Z79.899 Other long term (current) drug therapy; Z88.5 Allergy status to narcotic agent
CPT/HCPCS: 90004; 90100; 92235; 95059